=== PATIENT | male | born 1930 | race Caucasian/White ===

== ENCOUNTER → 2016-07-16 | Outpatient (CLI) | payer MEDICARE ==
[2016-07-16 11:06] LABS: Anion Gap 10 mmol/L; Blood Urea Nitrogen 19 mg/dL (9-20); Calcium 9.4 mg/dL (8.4-10.2); Carbon Dioxide 29 mmol/L (22-30); Chloride 102 mmol/L (98-107); Glucose 92 mg/dL (74-99); Non-African American GFR(MDRD) >60 (>60 ml/min/1.73 sqM); Potassium 4.2 mmol/L (3.5-5.1); Sodium 141 mmol/L (137-145)
== END | disposition home or self-care (01) ==
LOC: LABWHC1 09:48
PROVIDERS: ATTEND Internal Medicine Interventional Cardiology
DX: I10 Essential (primary) hypertension (principal)
CPT/HCPCS: 36415; 80048

== ENCOUNTER → 2017-12-01 | Outpatient (CLI) | payer MEDICARE ==
[2017-12-01 10:34] LABS: Basophils % (A) 1 %; Eosinophils # (A) 0.1 k/uL (0-0.7); Eosinophils % (A) 2 %; HGB 13.2 gm/dL (13.0-17.5); Hypochromasia Slight; Lymphocytes # (A) 1.3 k/uL (1.0-4.8); Lymphocytes % (A) 26 %; MCH 26.4 pg (25.0-35.0); Mean Platelet Volume 6.6; Monocytes # (A) 0.4 k/uL (0-1.0); Monocytes % (A) 8 %; Neutrophils # (A) 3.1 k/uL (1.3-7.7); Neutrophils % (A) 62 %; Platelet Count 150 k/uL (150-450)
[2017-12-01 10:46] LABS: Albumin 3.6 g/dL (3.5-5.0); Calcium 8.7 mg/dL (8.4-10.2); Potassium 4.1 mmol/L (3.5-5.1); Total Bilirubin 0.6 mg/dL (0.2-1.3); Total Protein 6.6 g/dL (6.3-8.2)
[2017-12-01 11:02] LABS: T4, Free (Free Thyroxine) 1.17 ng/dL (0.78-2.19)
== END | disposition home or self-care (01) ==
LOC: LABWHC1 10:03
PROVIDERS: ATTEND Internal Medicine
DX: Z00.00 Encounter for general adult medical examination without abnormal findings (principal); E78.5 Hyperlipidemia, unspecified; I10 Essential (primary) hypertension
CPT/HCPCS: 36415; 80053; 80061; 84439; 84443; 85025

== ENCOUNTER 2020-04-28 00:11 | Inpatient (IN) | payer MEDICARE ==
[2020-04-28] MEDS ORDERED: IPRATROPIUM-ALBUTEROL 3 ML NEB INHALATION STA (00:35)
[2020-04-28] MEDS ORDERED: SODIUM CHLORIDE 0.9% 1,000 ML IV STA ×2 (00:35)
[2020-04-28] MEDS ORDERED: LORazepam 2 MG/ML INJ IV STA (00:35)
--- NOTE | 2020-04-28 00:35 | ED ---
SOB HPI - General Chief Complaint: Shortness of Breath Stated Complaint: SPARKLE Time Seen by Provider: 04/28/20 00:19 Source: patient, family, RN notes reviewed, old records reviewed Mode of arrival: ambulatory Limitations: no limitations - History of Present Illness Initial Comments: This is an 81-year-old male to the ER for evaluation patient is severe shortness of breath patient has underlying history of COPD and smoking coming in with increasing shortness of breath mainly started tonight. No chest pain. Patient states he never had significant shortness of breath like this before no sick contacts or travel history denies fever MD Complaint: shortness of breath, cough -: hour(s) Severity: moderate Severity scale (1-10): 6 Consistency: constant Improves With: nothing Worsens With: nothing Known History Of: COPD, congestive heart failure, recurrent pneumonia Context: recent URI, recent illness Associated Symptoms: cough, sputum production Treatments Prior to Arrival: none - Related Data Allergies Allergy/AdvReac Type Severity Reaction Status Date / Time No Known Allergies Allergy Verified 04/28/20 00:17 Review of Systems ROS Statement: Those systems with pertinent positive or pertinent negative responses have been documented in the HPI. ROS Other: All systems not noted in ROS Statement are negative. Past Medical History Past Medical History: No Reported History History of Any Multi-Drug Resistant Organisms: None Reported Past Surgical History: No Surgical Hx Reported Past Psychological History: No Psychological Hx Reported Smoking Status: Former smoker Past Alcohol Use History: Occasional General Exam Limitations: no limitations General appearance: alert, in no apparent distress, anxious, cachectic Head exam: Present: atraumatic, normocephalic, normal inspection Eye exam: Present: normal appearance, PERRL, EOMI. Absent: scleral icterus, conjunctival injection, periorbital swelling ENT exam: Present: normal exam, mucous membranes moist Neck exam: Present: normal inspection. Absent: tenderness, meningismus, lymphadenopathy Respiratory exam: Present: respiratory distress, wheezes, accessory muscle use, decreased breath sounds, prolonged expiratory. Absent: rales, rhonchi, stridor Cardiovascular Exam: Present: regular rate, normal rhythm, normal heart sounds. Absent: systolic murmur, diastolic murmur, rubs, gallop, clicks GI/Abdominal exam: Present: soft, normal bowel sounds. Absent: distended, tenderness, guarding, rebound, rigid Extremities exam: Present: normal inspection, full ROM, normal capillary refill. Absent: tenderness, pedal edema, joint swelling, calf tenderness Back exam: Present: normal inspection Neurological exam: Present: alert, oriented X3, CN II-XII intact Psychiatric exam: Present: normal affect, normal mood Skin exam: Present: warm, dry, intact, normal color. Absent: rash Course Vital Signs 04/28/20 04/28/20 04/28/20 00:13 00:35 00:51 Temperature 98.3 F Pulse Rate 94 88 Respiratory 26 H 24 Rate Blood Pressure 133/81 O2 Sat by Pulse 94 L Oximetry 04/28/20 01:03 Temperature Pulse Rate 88 Respiratory Rate Blood Pressure O2 Sat by Pulse Oximetry - Reevaluation(s) Reevaluation #1: 04/28/20 02:19 Medical record is reviewed Reevaluation #2: 04/28/20 02:19 improvement in symptoms - Consultations Consultation #1: Spoke with EM to agrees to admit the patient Medical Decision Making - Medical Decision Making 89 male with severe shortness of breath patient coming with persistent shortness of breath cough, likely underlying history of COPD patient will be admitted for breathing treatments and supportive care, rule out coronavirus - Lab Data Result diagrams: 04/28/20 01:00 04/28/20 01:00 Lab Results 04/28/20 04/28/20 04/28/20 Range/Units 01:00 01:00 01:00 WBC 9.4 (3.8-10.6) k/uL RBC 4.56 (4.30-5.90) m/uL Hgb 12.6 L (13.0-17.5) gm/dL Hct 39.4 (39.0-53.0) % MCV 86.5 (80.0-100.0) fL MCH 27.7 (25.0-35.0) pg MCHC 32.0 (31.0-37.0) g/dL RDW 13.0 (11.5-15.5) % Plt Count 233 (150-450) k/uL MPV 7.7 Neutrophils % 72 % Lymphocytes % 13 % Monocytes % 7 % Eosinophils % 7 % Basophils % 0 % Neutrophils # 6.8 (1.3-7.7) k/uL Lymphocytes # 1.2 (1.0-4.8) k/uL Monocytes # 0.6 (0-1.0) k/uL Eosinophils # 0.7 (0-0.7) k/uL Basophils # 0.0 (0-0.2) k/uL PT 9.7 (9.0-12.0) sec INR 0.9 (<1.2) APTT 22.8 (22.0-30.0) sec Sodium 136 L (137-145) mmol/L Potassium 4.2 (3.5-5.1) mmol/L Chloride 102 (98-107) mmol/L Carbon Dioxide 24 (22-30) mmol/L Anion Gap 10 mmol/L BUN 23 H (9-20) mg/dL Creatinine 1.23 (0.66-1.25) mg/dL Est GFR (CKD-EPI)AfAm 61 (>60 ml/min/1.73 sqM) Est GFR (CKD-EPI)NonAf 52 (>60 ml/min/1.73 sqM) Glucose 126 H (74-99) mg/dL Plasma Lactic Acid Andres (0.7-2.0) mmol/L Calcium 8.4 (8.4-10.2) mg/dL Magnesium 2.2 (1.6-2.3) mg/dL Total Bilirubin 0.5 (0.2-1.3) mg/dL AST 23 (17-59) U/L ALT 21 (4-49) U/L Alkaline Phosphatase 64 (38-126) U/L Lactate Dehydrogenase (313-618) U/L Creatine Kinase 53 L (55-170) U/L Troponin I (0.000-0.034) ng/mL C-Reactive Protein (<10.0) mg/L NT-Pro-B Natriuret Pep pg/mL Total Protein 6.5 (6.3-8.2) g/dL Albumin 3.4 L (3.5-5.0) g/dL 04/28/20 04/28/20 04/28/20 Range/Units 01:00 01:00 01:00 WBC (3.8-10.6) k/uL RBC (4.30-5.90) m/uL Hgb (13.0-17.5) gm/dL Hct (39.0-53.0) % MCV (80.0-100.0) fL MCH (25.0-35.0) pg MCHC (31.0-37.0) g/dL RDW (11.5-15.5) % Plt Count (150-450) k/uL MPV Neutrophils % % Lymphocytes % % Monocytes % % Eosinophils % % Basophils % % Neutrophils # (1.3-7.7) k/uL Lymphocytes # (1.0-4.8) k/uL Monocytes # (0-1.0) k/uL Eosinophils # (0-0.7) k/uL Basophils # (0-0.2) k/uL PT (9.0-12.0) sec INR (<1.2) APTT (22.0-30.0) sec Sodium (137-145) mmol/L Potassium (3.5-5.1) mmol/L Chloride (98-107) mmol/L Carbon Dioxide (22-30) mmol/L Anion Gap mmol/L BUN (9-20) mg/dL Creatinine (0.66-1.25) mg/dL Est GFR (CKD-EPI)AfAm (>60 ml/min/1.73 sqM) Est GFR (CKD-EPI)NonAf (>60 ml/min/1.73 sqM) Glucose (74-99) mg/dL Plasma Lactic Acid Andres 1.2 (0.7-2.0) mmol/L Calcium (8.4-10.2) mg/dL Magnesium (1.6-2.3) mg/dL Total Bilirubin (0.2-1.3) mg/dL AST (17-59) U/L ALT (4-49) U/L Alkaline Phosphatase (38-126) U/L Lactate Dehydrogenase (313-618) U/L Creatine Kinase (55-170) U/L Troponin I 0.027 (0.000-0.034) ng/mL C-Reactive Protein (<10.0) mg/L NT-Pro-B Natriuret Pep 526 pg/mL Total Protein (6.3-8.2) g/dL Albumin (3.5-5.0) g/dL 04/28/20 Range/Units 01:00 WBC (3.8-10.6) k/uL RBC (4.30-5.90) m/uL Hgb (13.0-17.5) gm/dL Hct (39.0-53.0) % MCV (80.0-100.0) fL MCH (25.0-35.0) pg MCHC (31.0-37.0) g/dL RDW (11.5-15.5) % Plt Count (150-450) k/uL MPV Neutrophils % % Lymphocytes % % Monocytes % % Eosinophils % % Basophils % % Neutrophils # (1.3-7.7) k/uL Lymphocytes # (1.0-4.8) k/uL Monocytes # (0-1.0) k/uL Eosinophils # (0-0.7) k/uL Basophils # (0-0.2) k/uL PT (9.0-12.0) sec INR (<1.2) APTT (22.0-30.0) sec Sodium (137-145) mmol/L Potassium (3.5-5.1) mmol/L Chloride (98-107) mmol/L Carbon Dioxide (22-30) mmol/L Anion Gap mmol/L BUN (9-20) mg/dL Creatinine (0.66-1.25) mg/dL Est GFR (CKD-EPI)AfAm (>60 ml/min/1.73 sqM) Est GFR (CKD-EPI)NonAf (>60 ml/min/1.73 sqM) Glucose (74-99) mg/dL Plasma Lactic Acid Andres (0.7-2.0) mmol/L Calcium (8.4-10.2) mg/dL Magnesium (1.6-2.3) mg/dL Total Bilirubin (0.2-1.3) mg/dL AST (17-59) U/L ALT (4-49) U/L Alkaline Phosphatase (38-126) U/L Lactate Dehydrogenase 442 (313-618) U/L Creatine Kinase (55-170) U/L Troponin I (0.000-0.034) ng/mL C-Reactive Protein 83.9 H (<10.0) mg/L NT-Pro-B Natriuret Pep pg/mL Total Protein (6.3-8.2) g/dL Albumin (3.5-5.0) g/dL - EKG Data -: EKG Interpreted by Me (EKG is sinus rhythm 89 IN 130 QRS 82 QTC 438) - Radiology Data Radiology results: report reviewed (Chest x-ray of pulmonary nodule bilateral basilar infiltrate), image reviewed Disposition Clinical Impression: Acute pulmonary edema, Acute exacerbation of chronic obstructive pulmonary disease, Community acquired pneumonia, Hypoxia Disposition: ADMITTED IP TO THIS HOSP Condition: Fair Is patient prescribed a controlled substance at d/c from ED?: No Referrals: Reshma Wallis MD [Primary Care Provider] - 1-2 days
[2020-04-28 01:22] LABS: Basophils % (A) 0 %; Eosinophils # (A) 0.7 k/uL (0-0.7); Eosinophils % (A) 7 %; HCT 39.4 % (39.0-53.0); HGB 12.6 gm/dL (13.0-17.5); Lymphocytes # (A) 1.2 k/uL (1.0-4.8); Lymphocytes % (A) 13 %; MCH 27.7 pg (25.0-35.0); MCV 86.5 fL (80.0-100.0); Mean Platelet Volume 7.7; Monocytes # (A) 0.6 k/uL (0-1.0); Monocytes % (A) 7 %; Neutrophils # (A) 6.8 k/uL (1.3-7.7); Neutrophils % (A) 72 %; Platelet Count 233 k/uL (150-450); RBC 4.56 m/uL (4.30-5.90); WBC 9.4 k/uL (3.8-10.6)
--- NOTE | 2020-04-28 01:27 | XR ---
EXAM: XR Chest, 2 Views CLINICAL HISTORY: difficulty breathing TECHNIQUE: Frontal and lateral views of the chest. COMPARISON: No relevant prior studies available. FINDINGS: Lungs: Small amount of bibasilar airspace opacities. 6 mm pulmonary nodule is suspected in the lateral aspect of left mid lung zone. Pleural space: minimal bilateral pleural effusion/thickening. No pneumothorax. Mediastinum: Calcified aorta. Bones/joints:. No acute findings. IMPRESSION: 1. Small amount of bibasilar airspace opacities. 2. minimal bilateral pleural effusion/thickening. 3. 6 mm pulmonary nodule is suspected in the lateral aspect of left mid lung zone. Palpation CT may help to further evaluate if clinically indicated.
[2020-04-28 01:30] LABS: Albumin 3.4 g/dL (3.5-5.0); Calcium 8.4 mg/dL (8.4-10.2); Magnesium 2.2 mg/dL (1.6-2.3); Potassium 4.2 mmol/L (3.5-5.1); Total Bilirubin 0.5 mg/dL (0.2-1.3); Total Protein 6.5 g/dL (6.3-8.2)
[2020-04-28 01:32] LABS: INR 0.9 (<1.2); Partial Thromboplastin Time 22.8 sec (22.0-30.0); Prothrombin Time 9.7 sec (9.0-12.0)
[2020-04-28 02:07] LABS: C Reactive Protein 83.9 mg/L (<10.0)
[2020-04-28] MEDS ORDERED: AZITHROMYCIN 500 MG in SODIUM CHLORIDE 0.9% 250 ML IVPB STA (02:17)
[2020-04-28] MEDS: SODIUM CHLORIDE 0.9% 1,000 ML IV SCH ×2 (02:38→12:38)
--- NOTE | 2020-04-28 02:50 | CT ---
EXAM: CT Angiography Chest With Intravenous Contrast CLINICAL HISTORY: ITS.REASON CT Reason: PE TECHNIQUE: Axial computed tomographic angiography images of the chest with intravenous contrast. CTDI is 22.77 mGy and DLP is 271.60 mGy-cm. This CT exam was performed using one or more of the following dose reduction techniques: automated exposure control, adjustment of the mA and/or kV according to patient size, and/or use of iterative reconstruction technique. MIP reconstructed images were created and reviewed. COMPARISON: 04/28/2020 FINDINGS: Pulmonary arteries: No filling defects. Aorta: No thoracic aortic aneurysm. Lungs: No mass. No consolidation. Opacification in the right main bronchus. Pleural space: No pneumothorax. Mild bilateral loculated pleural effusions. Heart: No cardiomegaly. Trace pericardial effusion. Bones/joints: Views of thoracic vertebral bodies. Age indeterminate mild anterior wedging of T3, T5, T6 T12, and L1. Soft tissues: Multiple subcentimeter nodules in the thyroid glands. Atrophic left kidney with severe hydronephrosis. Multiple hepatic cysts. Mildly nodular liver. Mild hiatal hernia. Lymph nodes: No enlarged lymph nodes. IMPRESSION: 1. No pulmonary embolism. 2. Trace pericardial effusion. Mild bilateral loculated pleural effusions, worse on the left. 3. Secretion in the right main bronchus, likely aspiration 4. Evidence of ankylosing spondylitis. Multiple wedge deformities of the thoracolumbar spine, indeterminate age. 5. Atrophic left kidney with severe hydronephrosis. 6. Mildly nodular liver. 7. Mild hiatal hernia. 8. Multiple subcentimeter nodules in the thyroid glands
[2020-04-28 08:10] VITALS: BP 126/71; RESP 16; TEMP 98.3
[2020-04-28] MEDS: IPRATROPIUM-ALBUTEROL 3 ML NEB INHALATION SCH ×2 (08:18→11:16)
[2020-04-28] MEDS ORDERED: ENOXAPARIN 40 MG/0.4 ML SYRINGE SQ SCH (09:00)
[2020-04-28] MEDS ORDERED: ASPIRIN 81 MG PO SCH (09:00)
[2020-04-28] MEDS ORDERED: METOPROLOL TARTRATE 25 MG TAB PO SCH (09:00)
[2020-04-28] MEDS ORDERED: DOXAZOSIN 4 MG TAB PO SCH (09:00)
[2020-04-28] MEDS ORDERED: FUROSEMIDE 10 MG/ML 2 ML VIAL IV ONE (10:11)
--- NOTE | 2020-04-28 10:56 | P.HPIM ---
History of Present Illness 89-year-old pleasant male with known history of COPD came in with complaints of shortness of breath that patient had a CT of the chest which showed mucus in the right mainstem bronchus no evidence of PE pulmonary embolism patient is saturating well with dyspnea and oxygen if patient is a able to do well without oxygen ablate well with that and patient will be discharged today. Patient received systemic steroids probably will not require those upon discharge. Patient is clinically doing well. Patient denied any fever chills no evidence of pneumonia on x-ray patient will be discharged on 6 inhale steroids,. Opium and patient will continue albuterol an as-needed basis as well as azithromycin Review of Systems REVIEW OF SYSTEMS: CONSTITUTIONAL: No fever, no malaise, no fatigue. HEENT: No recent visual problems or hearing problems. Denied any sore throat. CARDIOVASCULAR: No chest pain, orthopnea, PND, no palpitations, no syncope. PULMONARY:no hemoptysis. GASTROINTESTINAL: No diarrhea, no nausea, no vomiting, no abdominal pain. NEUROLOGICAL: No headaches, no weakness, no numbness. HEMATOLOGICAL: Denies any bleeding or petechiae. GENITOURINARY: Denies any burning micturition, frequency, or urgency. MUSCULOSKELETAL/RHEUMATOLOGICAL: Denies any joint pain, swelling, or any muscle pain. ENDOCRINE: Denies any polyuria or polydipsia. The rest of the 14-point review of systems is negative. Past Medical History Past Medical History: No Reported History History of Any Multi-Drug Resistant Organisms: None Reported Past Surgical History: No Surgical Hx Reported Past Anesthesia/Blood Transfusion Reactions: No Reported Reaction Past Psychological History: No Psychological Hx Reported Smoking Status: Former smoker Past Alcohol Use History: Occasional Past Drug Use History: None Reported Medications and Allergies Home Medications Medication Instructions Recorded Confirmed Type Albuterol Inhaler [Ventolin Hfa 2 puff INHALATION RT-QID PRN 04/28/20 04/28/20 History Inhaler] Aspirin EC [Ecotrin Low Dose] 81 mg PO DAILY 04/28/20 04/28/20 History Azithromycin [Zithromax Tri-Dev (3 500 mg PO DAILY 3 Days #3 tab 04/28/20 Rx tabs)] Budesonide-Formot 160-4.5 Mcg 2 puff INHALATION BID #1 inhaler 04/28/20 Rx [Symbicort 160-4.5 Mcg Inhaler] Doxazosin [Cardura] 4 mg PO DAILY 04/28/20 04/28/20 History Metoprolol Tartrate [Lopressor] 25 mg PO BID 04/28/20 04/28/20 History Simvastatin [Zocor] 20 mg PO HS 04/28/20 04/28/20 History Tiotropium Pre[place] [Spiriva] 1 cap INHALATION DAILY #1 device 04/28/20 Rx Allergies Allergy/AdvReac Type Severity Reaction Status Date / Time No Known Allergies Allergy Verified 04/28/20 08:03 Physical Exam Vitals: Vital Signs Temp Pulse Pulse Resp BP BP Pulse Ox 04/28/20 08:32 89 04/28/20 08:18 88 98 04/28/20 08:00 98.3 F 93 16 126/71 95 04/28/20 04:00 98.0 F 92 18 125/56 98 04/28/20 03:12 96 24 131/79 97 04/28/20 02:40 24 04/28/20 02:00 95 24 140/77 96 04/28/20 01:30 92 24 136/78 96 04/28/20 01:03 88 04/28/20 00:51 88 04/28/20 00:35 24 04/28/20 00:13 98.3 F 94 26 H 133/81 94 L Intake and Output 04/27/20 04/28/20 04/28/20 22:59 06:59 14:59 Other: Voiding Method Toilet # Voids 1 Weight 66.361 kg PHYSICAL EXAMINATION: GENERAL: The patient is alert and oriented x3, not in any acute distress. Well developed, well nourished. HEENT: Pupils are round and equally reacting to light. EOMI. No scleral icterus. No conjunctival pallor. Normocephalic, atraumatic. No pharyngeal erythema. No thyromegaly. CARDIOVASCULAR: S1 and S2 present. No murmurs, rubs, or gallops. PULMONARY: Mildly decreased air entry into bilateral lung fieldsand wheezing was appreciated ABDOMEN: Soft, nontender, nondistended, normoactive bowel sounds. No palpable organomegaly. MUSCULOSKELETAL: No joint swelling or deformity. EXTREMITIES: No cyanosis, clubbing, or pedal edema. NEUROLOGICAL: Gross neurological examination did not reveal any focal deficits. SKIN: No rashes. Results CBC & Chem 7: 04/28/20 01:00 04/28/20 01:00 Labs: Abnormal Lab Results - Last 24 Hours (Table) 04/28/20 04/28/20 04/28/20 Range/Units 01:00 01:00 01:00 Hgb 12.6 L (13.0-17.5) gm/dL D-Dimer (<0.60) mg/L FEU Sodium 136 L (137-145) mmol/L BUN 23 H (9-20) mg/dL Glucose 126 H (74-99) mg/dL Creatine Kinase 53 L (55-170) U/L C-Reactive Protein 83.9 H (<10.0) mg/L Albumin 3.4 L (3.5-5.0) g/dL 04/28/20 Range/Units 01:00 Hgb (13.0-17.5) gm/dL D-Dimer 3.90 H (<0.60) mg/L FEU Sodium (137-145) mmol/L BUN (9-20) mg/dL Glucose (74-99) mg/dL Creatine Kinase (55-170) U/L C-Reactive Protein (<10.0) mg/L Albumin (3.5-5.0) g/dL Thrombosis Risk Factor Assmnt - Choose All That Apply Each Risk Factor Represents 3 Points: Age 75 years or older Thrombosis Risk Factor Assessment Total Risk Factor Score: 3 Thrombosis Risk Factor Assessment Level: Moderate Risk Assessment and Plan Plan: -COPD exacerbation: Improved patient is clinically doing well if cleared by pulmonology patient will be discharged today patient was discharged on azithromycin Possible bacterial bronchitis with a mucous plug in the right bronchus -Acute renal failure pale ischemia secondary to dehydration, received IV fluids overnight. -Ruled out pulmonary embolism -Benign prostatic hypertrophy -Hyperlipidemia -coronary artery disease
--- NOTE | 2020-04-28 10:57 | P.DS ---
Providers Date of admission: 04/28/20 02:17 Attending physician: Hali Vaughn Consults: 04/28/20 02:17 Consult Physician Routine Consulting Provider: Reshma Wallis Consult Reason/Comments: copd Do you want consulting provider notified?: Yes Primary care physician: Reshma Wallis [facility] Course: Refer to [facility] for further details Patient Condition at Discharge: Fair Plan - Discharge Summary Discharge Rx Participant: No New Discharge Prescriptions: New Tiotropium [place] [Spiriva] 1 cap INHALATION DAILY #1 device Budesonide-Formot 160-4.5 Mcg [Symbicort 160-4.5 Mcg Inhaler] 2 puff INHALATION BID #1 inhaler Azithromycin [Zithromax Tri-Dev (3 tabs)] 500 mg PO DAILY 3 Days #3 tab No Action Simvastatin [Zocor] 20 mg PO HS Metoprolol Tartrate [Lopressor] 25 mg PO BID Aspirin EC [Ecotrin Low Dose] 81 mg PO DAILY Doxazosin [Cardura] 4 mg PO DAILY Albuterol Inhaler [Ventolin Hfa Inhaler] 2 puff INHALATION RT-QID PRN PRN Reason: Shortness Of Breath Discharge Medication List Albuterol Inhaler [Ventolin Hfa Inhaler] 2 puff INHALATION RT-QID PRN 04/28/20 [History] Aspirin EC [Ecotrin Low Dose] 81 mg PO DAILY 04/28/20 [History] Azithromycin [Zithromax Tri-Dev (3 tabs)] 500 mg PO DAILY 3 Days #3 tab 04/28/20 [Rx] Budesonide-Formot 160-4.5 Mcg [Symbicort 160-4.5 Mcg Inhaler] 2 puff INHALATION BID #1 inhaler 04/28/20 [Rx] Doxazosin [Cardura] 4 mg PO DAILY 04/28/20 [History] Metoprolol Tartrate [Lopressor] 25 mg PO BID 04/28/20 [History] Simvastatin [Zocor] 20 mg PO HS 04/28/20 [History] Tiotropium [place] [Spiriva] 1 cap INHALATION DAILY #1 device 04/28/20 [Rx] Follow up Appointment(s)/Referral(s): Reshma Wallis MD [Primary Care Provider] - 3 Days (Office closed at time of discharge please call ThursdayApril 30 to set up a follow up appointment) Discharge Disposition: HOME SELF-CARE
[2020-04-28 11:27] VITALS: PULSE 88
--- NOTE | 2020-04-28 14:40 | P.CNPUL ---
History of Present Illness Consult date: 04/28/20 Requesting physician: Milvia Hernandez Reason for consult: dyspnea, pleural effusion Chief complaint: Shortness of breath, chest discomfort History of present illness: This is a very pleasant 89-year-old gentleman who appears younger than his stated age. He follows with Dr. Wallis as a his primary care provider. He has a history of chronic obstructive pulmonary disease, hypertension, hyper lipidemia. He presented here to the emergency room yesterday with complaints of some chest tightness and shortness of breath that has been progressing over the past month. Chest x-ray revealed small bibasilar airspace opacities in small pleural effusions. CT angiogram ruled out pulmonary embolism. There was some secretion in the right main bronchus suspected aspiration. White count 9.4. Hemoglobin 12.6. D-dimer 3.90. Sodium 136. Potassium 4.2. Creatinine 1.23. Mathew virus not detected. He is seen today in consultation on the regular medical floor. He is currently awake and alert in no acute distress. Resting quite comfortably in bed. Maintaining O2 saturations in the 90s on room air. No fever, chills or night sweats. Does have a nonproductive cough. No chest pain or palpitations. Review of Systems REVIEW OF SYSTEMS: CONSTITUTIONAL: Denies any recent significant weight loss or weight gain. EYES: Denies change in vision. EARS, NOSE, MOUTH, THROAT: Denies headaches, denies sore throat. CARDIOVASCULAR: Denies chest pain, palpitations or syncopal episodes. RESPIRATORY: Positive for shortness of breath, cough, congestion no hemoptysis. GASTROINTESTINAL: Denies change in appetite, denies abdominal pain GENITOURINARY: Denies hematuria, denies infections. MUSKULOSKELETAL: Denies pain, denies swelling. INTEGUMENTARY: Denies rash, denies eczema. NEUROLOGICAL: Denies recent memory loss, no recent seizure activity. PSYCHIATRIC: Denies anxiety, denies depression. HEMATOLOGIC/LYMPHATIC: Denies anemia, denies enlarged lymph nodes. Past Medical History Past Medical History: No Reported History History of Any Multi-Drug Resistant Organisms: None Reported Past Surgical History: No Surgical Hx Reported Past Anesthesia/Blood Transfusion Reactions: No Reported Reaction Past Psychological History: No Psychological Hx Reported Smoking Status: Former smoker Past Alcohol Use History: Occasional Past Drug Use History: None Reported Medications and Allergies Home Medications Medication Instructions Recorded Confirmed Type Albuterol Inhaler [Ventolin Hfa 2 puff INHALATION RT-QID PRN 04/28/20 04/28/20 History Inhaler] Aspirin EC [Ecotrin Low Dose] 81 mg PO DAILY 04/28/20 04/28/20 History Azithromycin [Zithromax Tri-Dev (3 500 mg PO DAILY 3 Days #3 tab 04/28/20 Rx tabs)] Budesonide-Formot 160-4.5 Mcg 2 puff INHALATION BID #1 inhaler 04/28/20 Rx [Symbicort 160-4.5 Mcg Inhaler] Doxazosin [Cardura] 4 mg PO DAILY 04/28/20 04/28/20 History Furosemide [Lasix] 20 mg PO DAILY #30 tab 04/28/20 Rx Metoprolol Tartrate [Lopressor] 25 mg PO BID 04/28/20 04/28/20 History Simvastatin [Zocor] 20 mg PO HS 04/28/20 04/28/20 History Tiotropium Export [Spiriva] 1 cap INHALATION DAILY #1 device 04/28/20 Rx Allergies Allergy/AdvReac Type Severity Reaction Status Date / Time No Known Allergies Allergy Verified 04/28/20 08:03 Physical Exam Vitals: Vital Signs Temp Pulse Pulse Resp BP BP Pulse Ox 04/28/20 12:10 16 96 04/28/20 11:26 88 04/28/20 11:17 87 04/28/20 08:32 89 04/28/20 08:18 88 98 04/28/20 08:00 98.3 F 93 16 126/71 95 04/28/20 04:00 98.0 F 92 18 125/56 98 04/28/20 03:12 96 24 131/79 97 04/28/20 02:40 24 04/28/20 02:00 95 24 140/77 96 04/28/20 01:30 92 24 136/78 96 04/28/20 01:03 88 04/28/20 00:51 88 04/28/20 00:35 24 04/28/20 00:13 98.3 F 94 26 H 133/81 94 L Intake and Output 04/27/20 04/28/20 04/28/20 22:59 06:59 14:59 Other: Voiding Method Toilet Toilet # Voids 1 Weight 66.361 kg GENERAL EXAM: Alert, very pleasant 89-year-old gentleman, on room air, comfortable in no apparent distress. HEAD: Normocephalic. EYES: Normal reaction of pupils, equal size. NOSE: Clear with pink turbinates. THROAT: No erythema or exudates. NECK: No masses, no JVD. CHEST: No chest wall deformity. LUNGS: Equal air entry with faint crackles in the posterior bases. CVS: S1 and S2 normal with no audible murmur, regular rhythm. ABDOMEN: No hepatosplenomegaly, normal bowel sounds, no guarding or rigidity. SPINE: No scoliosis or deformity SKIN: No rashes CENTRAL NERVOUS SYSTEM: No focal deficits, tone is normal in all 4 extremities. EXTREMITIES: There is no peripheral edema. No clubbing, no cyanosis. Peripheral pulses are intact. Results - Laboratory Findings CBC and BMP: 04/28/20 01:00 04/28/20 01:00 PT/INR, D-dimer PT 9.7 sec (9.0-12.0) 04/28/20 01:00 INR 0.9 (<1.2) 04/28/20 01:00 D-Dimer 3.90 mg/L FEU (<0.60) H 04/28/20 01:00 Abnormal lab findings: Abnormal Labs 04/28/20 04/28/20 04/28/20 01:00 01:00 01:00 Hgb 12.6 L D-Dimer Sodium 136 L BUN 23 H Glucose 126 H Creatine Kinase 53 L C-Reactive Protein 83.9 H Albumin 3.4 L 04/28/20 01:00 Hgb D-Dimer 3.90 H Sodium BUN Glucose Creatine Kinase C-Reactive Protein Albumin - Diagnostic Findings Chest x-ray: image reviewed CT scan - chest: image reviewed Assessment and Plan Assessment: 1 Dyspnea secondary to mild fluid volume overload 2 Acute exacerbation of chronic obstructive pulmonary disease 3 Former smoker 4 Hyperlipidemia 5 Hypertension Plan: The patient was seen and evaluated by Dr. Wallis Chest x-ray and labs reviewed Lasix 20 mg IVP 1 Start Lasix 20 mg by mouth daily Continue his home COPD medications Complete course of azithromycin Cleared for discharge Follow up in our office in 1-2 weeks. I, the cosigning physician, performed a history & physical examination of the patient. Lungs sounds with faint crackles in the posterior bases, diminished. Maintaining good O2 saturations in the 90s on room air. I discussed the assessment and plan of care with my nurse practitioner, Beckie Goodson. I attest to the above consultation as dictated by her. Time with Patient: Greater than 30
[2020-04-28] MEDS ORDERED: BUDESONIDE 0.5 MG/2 ML NEBU INHALATION SCH (20:00)
[2020-04-28] MEDS ORDERED: ATORVASTATIN 10 MG TAB PO SCH (21:00)
[2020-04-29] MEDS ORDERED: AZITHROMYCIN 500 MG TAB PO SCH (02:18)
[2020-04-29] MEDS ORDERED: FUROSEMIDE 20 MG TAB PO SCH (09:00)
== END 2020-04-28 13:30 | disposition home or self-care (01) | DRG 191 ==
LOC: EC 00:11 → 4SSUR 02:17
PROVIDERS: ADMIT Hospitalist; ATTEND Hospitalist
DX: J44.1 Chronic obstructive pulmonary disease with (acute) exacerbation (principal); R64 Cachexia; N17.9 Acute kidney failure, unspecified; Z68.1 Body mass index [BMI] 19.9 or less, adult; I11.0 Hypertensive heart disease with heart failure; I50.9 Heart failure, unspecified; Z20.822 Contact with and (suspected) exposure to COVID-19; E86.0 Dehydration; R09.02 Hypoxemia; N40.0 Benign prostatic hyperplasia without lower urinary tract symptoms; E78.5 Hyperlipidemia, unspecified; I25.10 Atherosclerotic heart disease of native coronary artery without angina pectoris; Z87.891 Personal history of nicotine dependence; Z87.01 Personal history of pneumonia (recurrent); Z79.82 Long term (current) use of aspirin; Z79.899 Other long term (current) drug therapy
CPT/HCPCS: 36415; 71046; 71275; 80053; 82550; 83605; 83615; 83735; 83880; 84484; 85025; 85379; 85610; 85730; 86140; 87040; 87635; 93005; 94640; 96361; 96365; 99285

== ENCOUNTER 2020-09-20 01:10 | Inpatient (IN) | payer MEDICARE ==
[2020-09-20] MEDS ORDERED: SODIUM CHLORIDE 0.9% 1,000 ML IV STA (01:14)
--- NOTE | 2020-09-20 01:31 | ED ---
Weakness HPI - General Stated complaint: Weakness Time Seen by Provider: 09/20/20 01:14 Source: RN notes reviewed, old records reviewed Limitations: no limitations - History of Present Illness Initial comments: This is an 89-year-old male who is a poor story presented with weakness well walking patient reevaluated is near syncopal. He had he was ground secondary lightheadedness and dizziness. Patient currently is without headache chest pain shortness of breath or abdominal pain. MD Complaint: generalized weakness, lack of energy, difficulty walking -: hour(s) Location: generalized Severity: moderate Consistency: constant Improves with: none Worsens with: none Context: recent illness, history of similar Associated Symptoms: loss of appetite, nausea/vomiting, shortness of breath - Related Data Home Medications Medication Instructions Recorded Confirmed Albuterol Inhaler [Ventolin Hfa 2 puff INHALATION RT-QID PRN 04/28/20 04/28/20 Inhaler] Aspirin EC [Ecotrin Low Dose] 81 mg PO DAILY 04/28/20 04/28/20 Doxazosin [Cardura] 4 mg PO DAILY 04/28/20 04/28/20 Metoprolol Tartrate [Lopressor] 25 mg PO BID 04/28/20 04/28/20 Simvastatin [Zocor] 20 mg PO HS 04/28/20 04/28/20 Previous Rx's Medication Instructions Recorded Azithromycin [Zithromax Tri-Dev (3 500 mg PO DAILY 3 Days #3 tab 04/28/20 tabs)] Budesonide-Formot 160-4.5 Mcg 2 puff INHALATION BID #1 inhaler 04/28/20 [Symbicort 160-4.5 Mcg Inhaler] Furosemide [Lasix] 20 mg PO DAILY #30 tab 04/28/20 Tiotropium [place] [Spiriva] 1 cap INHALATION DAILY #1 device 04/28/20 Allergies Allergy/AdvReac Type Severity Reaction Status Date / Time No Known Allergies Allergy Verified 04/28/20 08:03 Review of Systems ROS Statement: Those systems with pertinent positive or pertinent negative responses have been documented in the HPI. ROS Other: All systems not noted in ROS Statement are negative. Past Medical History Past Medical History: No Reported History History of Any Multi-Drug Resistant Organisms: None Reported Past Surgical History: No Surgical Hx Reported Past Anesthesia/Blood Transfusion Reactions: No Reported Reaction Past Psychological History: No Psychological Hx Reported Smoking Status: Former smoker Past Alcohol Use History: Occasional Past Drug Use History: None Reported General Exam General appearance: alert, in no apparent distress Head exam: Present: atraumatic, normocephalic, normal inspection Eye exam: Present: normal appearance, PERRL, EOMI. Absent: scleral icterus, conjunctival injection, periorbital swelling ENT exam: Present: normal exam, mucous membranes moist Neck exam: Present: normal inspection. Absent: tenderness, meningismus, lymphadenopathy Respiratory exam: Present: normal lung sounds bilaterally. Absent: respiratory distress, wheezes, rales, rhonchi, stridor Cardiovascular Exam: Present: regular rate, normal rhythm, normal heart sounds. Absent: systolic murmur, diastolic murmur, rubs, gallop, clicks GI/Abdominal exam: Present: soft, normal bowel sounds. Absent: distended, tenderness, guarding, rebound, rigid Extremities exam: Present: normal inspection, full ROM, normal capillary refill. Absent: tenderness, pedal edema, joint swelling, calf tenderness Back exam: Present: normal inspection Neurological exam: Present: alert, oriented X3, CN II-XII intact Psychiatric exam: Present: normal affect, normal mood Skin exam: Present: warm, dry, intact, normal color. Absent: rash Course Vital Signs 09/20/20 09/20/20 01:12 02:27 Temperature 98.8 F Pulse Rate 84 82 Respiratory 16 16 Rate Blood Pressure 127/61 102/57 O2 Sat by Pulse 88 L 96 Oximetry - Reevaluation(s) Reevaluation #1: 09/20/20 03:35 Medical records reviewed Reevaluation #2: 09/20/20 03:35 Patient has no improvement here in the ER feels chilly diaphoretic's Reevaluation #3: 09/20/20 03:35 Patient family informed results and questions are answered EKG Findings - EKG Comments: EKG Findings:: EKG is sinus rhythm 79, [place] 154 QRS 90 QTC 481 Medical Decision Making - Medical Decision Making 89 male DF for evaluation patient will be admitted for IV antibiotics secondary to urinary tract infection, persistent weakness - Lab Data Result diagrams: 09/20/20 01:30 09/20/20 01:30 Lab Results 09/20/20 09/20/20 09/20/20 Range/Units 01:30 01:30 01:30 WBC 8.4 (3.8-10.6) k/uL RBC 3.85 L (4.30-5.90) m/uL Hgb 10.2 L (13.0-17.5) gm/dL Hct 31.0 L (39.0-53.0) % MCV 80.4 (80.0-100.0) fL MCH 26.5 (25.0-35.0) pg MCHC 33.0 (31.0-37.0) g/dL RDW 13.8 (11.5-15.5) % Plt Count 187 (150-450) k/uL MPV 7.3 Neutrophils % 77 % Lymphocytes % 15 % Monocytes % 7 % Eosinophils % 0 % Basophils % 0 % Neutrophils # 6.5 (1.3-7.7) k/uL Lymphocytes # 1.2 (1.0-4.8) k/uL Monocytes # 0.6 (0-1.0) k/uL Eosinophils # 0.0 (0-0.7) k/uL Basophils # 0.0 (0-0.2) k/uL PT 11.1 (9.0-12.0) sec INR 1.0 (<1.2) APTT 24.2 (22.0-30.0) sec Sodium 133 L (137-145) mmol/L Potassium 2.8 L (3.5-5.1) mmol/L Chloride 101 (98-107) mmol/L Carbon Dioxide 25 (22-30) mmol/L Anion Gap 7 mmol/L BUN 32 H (9-20) mg/dL Creatinine 1.48 H (0.66-1.25) mg/dL Est GFR (CKD-EPI)AfAm 48 (>60 ml/min/1.73 sqM) Est GFR (CKD-EPI)NonAf 41 (>60 ml/min/1.73 sqM) Glucose 171 H (74-99) mg/dL Plasma Lactic Acid Andres (0.7-2.0) mmol/L Calcium 7.6 L (8.4-10.2) mg/dL Phosphorus 3.1 (2.5-4.5) mg/dL Magnesium 1.8 (1.6-2.3) mg/dL Total Bilirubin 0.6 (0.2-1.3) mg/dL AST 21 (17-59) U/L ALT 10 (4-49) U/L Alkaline Phosphatase 44 (38-126) U/L Creatine Kinase 39 L (55-170) U/L Troponin I (0.000-0.034) ng/mL NT-Pro-B Natriuret Pep pg/mL Total Protein 5.6 L (6.3-8.2) g/dL Albumin 2.7 L (3.5-5.0) g/dL TSH 1.430 (0.465-4.680) mIU/L Urine Color Urine Appearance (Clear) Urine pH (5.0-8.0) Ur Specific [place] (1.001-1.035) Urine Protein (Negative) Urine Glucose (UA) (Negative) Urine Ketones (Negative) Urine Blood (Negative) Urine Nitrite (Negative) Urine Bilirubin (Negative) Urine Urobilinogen (<2.0) mg/dL Ur Leukocyte Esterase (Negative) Urine RBC (0-5) /hpf Urine WBC (0-5) /hpf Urine WBC Clumps (None) /hpf 09/20/20 09/20/20 09/20/20 Range/Units 01:30 01:30 01:30 WBC (3.8-10.6) k/uL RBC (4.30-5.90) m/uL Hgb (13.0-17.5) gm/dL Hct (39.0-53.0) % MCV (80.0-100.0) fL MCH (25.0-35.0) pg MCHC (31.0-37.0) g/dL RDW (11.5-15.5) % Plt Count (150-450) k/uL MPV Neutrophils % % Lymphocytes % % Monocytes % % Eosinophils % % Basophils % % Neutrophils # (1.3-7.7) k/uL Lymphocytes # (1.0-4.8) k/uL Monocytes # (0-1.0) k/uL Eosinophils # (0-0.7) k/uL Basophils # (0-0.2) k/uL PT (9.0-12.0) sec INR (<1.2) APTT (22.0-30.0) sec Sodium (137-145) mmol/L Potassium (3.5-5.1) mmol/L Chloride (98-107) mmol/L Carbon Dioxide (22-30) mmol/L Anion Gap mmol/L BUN (9-20) mg/dL Creatinine (0.66-1.25) mg/dL Est GFR (CKD-EPI)AfAm (>60 ml/min/1.73 sqM) Est GFR (CKD-EPI)NonAf (>60 ml/min/1.73 sqM) Glucose (74-99) mg/dL Plasma Lactic Acid Andres 1.6 (0.7-2.0) mmol/L Calcium (8.4-10.2) mg/dL Phosphorus (2.5-4.5) mg/dL Magnesium (1.6-2.3) mg/dL Total Bilirubin (0.2-1.3) mg/dL AST (17-59) U/L ALT (4-49) U/L Alkaline Phosphatase (38-126) U/L Creatine Kinase (55-170) U/L Troponin I 0.070 H* (0.000-0.034) ng/mL NT-Pro-B Natriuret Pep 533 pg/mL Total Protein (6.3-8.2) g/dL Albumin (3.5-5.0) g/dL TSH (0.465-4.680) mIU/L Urine Color Urine Appearance (Clear) Urine pH (5.0-8.0) Ur Specific [place] (1.001-1.035) Urine Protein (Negative) Urine Glucose (UA) (Negative) Urine Ketones (Negative) Urine Blood (Negative) Urine Nitrite (Negative) Urine Bilirubin (Negative) Urine Urobilinogen (<2.0) mg/dL Ur Leukocyte Esterase (Negative) Urine RBC (0-5) /hpf Urine WBC (0-5) /hpf Urine WBC Clumps (None) /hpf 09/20/20 Range/Units 02:11 WBC (3.8-10.6) k/uL RBC (4.30-5.90) m/uL Hgb (13.0-17.5) gm/dL Hct (39.0-53.0) % MCV (80.0-100.0) fL MCH (25.0-35.0) pg MCHC (31.0-37.0) g/dL RDW (11.5-15.5) % Plt Count (150-450) k/uL MPV Neutrophils % % Lymphocytes % % Monocytes % % Eosinophils % % Basophils % % Neutrophils # (1.3-7.7) k/uL Lymphocytes # (1.0-4.8) k/uL Monocytes # (0-1.0) k/uL Eosinophils # (0-0.7) k/uL Basophils # (0-0.2) k/uL PT (9.0-12.0) sec INR (<1.2) APTT (22.0-30.0) sec Sodium (137-145) mmol/L Potassium (3.5-5.1) mmol/L Chloride (98-107) mmol/L Carbon Dioxide (22-30) mmol/L Anion Gap mmol/L BUN (9-20) mg/dL Creatinine (0.66-1.25) mg/dL Est GFR (CKD-EPI)AfAm (>60 ml/min/1.73 sqM) Est GFR (CKD-EPI)NonAf (>60 ml/min/1.73 sqM) Glucose (74-99) mg/dL Plasma Lactic Acid Andres (0.7-2.0) mmol/L Calcium (8.4-10.2) mg/dL Phosphorus (2.5-4.5) mg/dL Magnesium (1.6-2.3) mg/dL Total Bilirubin (0.2-1.3) mg/dL AST (17-59) U/L ALT (4-49) U/L Alkaline Phosphatase (38-126) U/L Creatine Kinase (55-170) U/L Troponin I (0.000-0.034) ng/mL NT-Pro-B Natriuret Pep pg/mL Total Protein (6.3-8.2) g/dL Albumin (3.5-5.0) g/dL TSH (0.465-4.680) mIU/L Urine Color Yellow Urine Appearance Cloudy (Clear) Urine pH 6.0 (5.0-8.0) Ur Specific [place] 1.015 (1.001-1.035) Urine Protein 2+ H (Negative) Urine Glucose (UA) Negative (Negative) Urine Ketones Negative (Negative) Urine Blood Large H (Negative) Urine Nitrite Negative (Negative) Urine Bilirubin Negative (Negative) Urine Urobilinogen <2.0 (<2.0) mg/dL Ur Leukocyte Esterase Large H (Negative) Urine RBC >182 H (0-5) /hpf Urine WBC >182 H (0-5) /hpf Urine WBC Clumps Many H (None) /hpf - Radiology Data Radiology results: report reviewed (Chest x-rays negative for acute disease), image reviewed Disposition Clinical Impression: Dehydration, Dizziness, UTI (urinary tract infection), MINI (acute kidney injury) Disposition: ADMITTED IP TO THIS HOSP Is patient prescribed a controlled substance at d/c from ED?: No Referrals: None,Stated [Primary Care Provider] - 1-2 days
[2020-09-20 02:00] LABS: Basophils % (A) 0 %; Eosinophils % (A) 0 %; HGB 10.2 gm/dL (13.0-17.5); Lymphocytes # (A) 1.2 k/uL (1.0-4.8); Lymphocytes % (A) 15 %; MCH 26.5 pg (25.0-35.0); MCV 80.4 fL (80.0-100.0); Mean Platelet Volume 7.3; Monocytes # (A) 0.6 k/uL (0-1.0); Monocytes % (A) 7 %; Neutrophils # (A) 6.5 k/uL (1.3-7.7); Neutrophils % (A) 77 %; Platelet Count 187 k/uL (150-450); RBC 3.85 m/uL (4.30-5.90); RDW 13.8 % (11.5-15.5); WBC 8.4 k/uL (3.8-10.6)
--- NOTE | 2020-09-20 02:01 | XR ---
EXAMINATION TYPE: XR chest 2V DATE OF EXAM: 09/20/2020 COMPARISON: 07/10/2020 HISTORY: Pleural effusion TECHNIQUE: 2 views FINDINGS: There is no heart failure. There is slight blunting right costophrenic angle. There are no hilar masses. Heart is borderline enlarged. The bony thorax is intact. IMPRESSION: Small right pleural effusion is improved compared to last exam. No heart failure.
[2020-09-20 02:07] LABS: Partial Thromboplastin Time 24.2 sec (22.0-30.0); Prothrombin Time 11.1 sec (9.0-12.0)
[2020-09-20 02:19] LABS: Albumin 2.7 g/dL (3.5-5.0); Calcium 7.6 mg/dL (8.4-10.2); Magnesium 1.8 mg/dL (1.6-2.3); Phosphorus 3.1 mg/dL (2.5-4.5); Potassium 2.8 mmol/L (3.5-5.1); Total Bilirubin 0.6 mg/dL (0.2-1.3); Total Protein 5.6 g/dL (6.3-8.2)
[2020-09-20 02:29] LABS: Appearance,Urine Cloudy (Clear); Bilirubin,Urine Negative (Negative); Blood,Urine Large (Negative); Color,Urine Yellow; Glucose,Urine (UA) Negative (Negative); Ketones,Urine Negative (Negative); Leukocyte Esterase,Urine Large (Negative); Nitrite,Urine Negative (Negative); Protein,Urine 2+ (Negative); RBC,Urine >182 /hpf (0-5); Specific Gravity,Urine 1.015 (1.001-1.035); Urobilinogen,Urine <2.0 mg/dL (<2.0); WBC,Urine >182 /hpf (0-5)
[2020-09-20] MEDS ORDERED: NALOXONE 0.4 MG/ML 1 ML VIAL IV PRN (05:43)
[2020-09-20] MEDS ORDERED: ONDANSETRON 4 MG/2 ML VIAL IVP PRN (05:43)
[2020-09-20] MEDS ORDERED: MORPHINE SULFATE 4 MG/ML SYRINGE IV PRN (05:43)
[2020-09-20] MEDS ORDERED: POTASSIUM BICARBONATE/CIT AC 20 MEQ TABLET.EFF PO ONE (06:00)
[2020-09-20] MEDS: SODIUM CHLORIDE 0.9% 1,000 ML IV SCH ×3 (06:05→22:43)
[2020-09-20] MEDS: POTASSIUM CHLORIDE 10 MEQ in WATER FOR INJECTION 1 100ML.BAG IVPB SCH ×4 (06:07→11:35)
[2020-09-20] MEDS: PANTOPRAZOLE 40 MG/10 ML VIAL IV SCH (07:11)
[2020-09-20] MEDS ORDERED: ALBUTEROL NEBULIZED 2.5 MG/3 ML INHALATION PRN (09:46)
--- NOTE | 2020-09-20 10:20 | P.HPIM ---
History of Present Illness Patient is admitted for near syncope lightheadedness. Patient is found to be severely dehydrated with the low sodium of 133 potassium 2.8 creatinine of 1.48 baseline is around 0.9. Patient was admitted with similar symptoms in the past was hydrated at the time. Patient is also on Lasix at home. Patient does have dementia presently alert oriented 2. Serum sodium and serum plasma consistent with poor by mouth intake. Patient denied any chest pain does have mildly elevated troponin of 0.70. Patient's EKG showed sinus rhythm with premature atrial complexes. There is no echo cardiac exam available as per the previous recommendation patient doesn't have any congestive heart failure either. Patient does have dry mucous memory is consistent with dehydration. REVIEW OF SYSTEMS: CONSTITUTIONAL: No fever, no malaise, no fatigue. HEENT: No recent visual problems or hearing problems. Denied any sore throat. CARDIOVASCULAR: No chest pain, orthopnea, PND, no palpitations, no syncope. PULMONARY: No shortness of breath, no cough, no hemoptysis. GASTROINTESTINAL: No diarrhea, no nausea, no vomiting, no abdominal pain. NEUROLOGICAL: No headaches, no weakness, no numbness. HEMATOLOGICAL: Denies any bleeding or petechiae. GENITOURINARY: Denies any burning micturition, frequency, or urgency. MUSCULOSKELETAL/RHEUMATOLOGICAL: Denies any joint pain, swelling, or any muscle pain. ENDOCRINE: Denies any polyuria or polydipsia. The rest of the 14-point review of systems is negative. PHYSICAL EXAMINATION: GENERAL: The patient is alert and oriented x2, not in any acute distress. Thin built elderly male HEENT: Pupils are round and equally reacting to light. EOMI. No scleral icterus. No conjunctival pallor. Normocephalic, atraumatic. No pharyngeal erythema. No thyromegaly. CARDIOVASCULAR: S1 and S2 present. No murmurs, rubs, or gallops. PULMONARY: Chest is clear to auscultation, no wheezing or crackles. ABDOMEN: Soft, nontender, nondistended, normoactive bowel sounds. No palpable organomegaly. MUSCULOSKELETAL: No joint swelling or deformity. EXTREMITIES: No cyanosis, clubbing, or pedal edema. NEUROLOGICAL: Gross neurological examination did not reveal any focal deficits. SKIN: No rashes. Assessment and plan -Near syncopal: Seconded to severe dehydration with acute renal failure and hy ponatremia, patient will be started and continued on IV fluids will recheck the basic metabolic profile tomorrow physical therapy and occupational therapy evaluation. Patient probably will need speech therapy as well to do mini cognitive testing for his dementia. -Hypovolemic hyponatremia: IV fluids as mentioned above -Acute renal failure related azotemia secondary to poor by mouth intake and Las ix Lasix will be discontinued and patient will continue on IV fluids -Hypokalemia: Potassium will be replaced and it's expected to be low tomorrow as well as patient may be chronically hypokalemic and because the IV fluids patient will have some amount of natriuretic hypokalemia potassium remains low but tomorrow, we probably can add it 20-40 mg of potassium in his IV fluids for now we'll replace total of 120 mEq of potassium. 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 -Generalized deconditioning: Physical therapy occupational therapy evaluation -History of COPD without any acute exacerbation -Benign prostatic hypertrophy -Hyperlipidemia - coronary artery disease -DVT prophylaxis with subcutaneous heparin Past Medical History Past Medical History: No Reported History History of Any Multi-Drug Resistant Organisms: None Reported Past Surgical History: No Surgical Hx Reported Past Anesthesia/Blood Transfusion Reactions: No Reported Reaction Past Psychological History: No Psychological Hx Reported Smoking Status: Former smoker Past Alcohol Use History: Occasional Past Drug Use History: None Reported Medications and Allergies Home Medications Medication Instructions Recorded Confirmed Type Albuterol Inhaler [Ventolin Hfa 2 puff INHALATION RT-QID PRN 04/28/20 09/20/20 History Inhaler] Aspirin EC [Ecotrin Low Dose] 81 mg PO DAILY 04/28/20 09/20/20 History Doxazosin [Cardura] 4 mg PO DAILY 04/28/20 09/20/20 History Furosemide [Lasix] 20 mg PO DAILY #30 tab 04/28/20 09/20/20 Rx Metoprolol Tartrate [Lopressor] 25 mg PO BID 04/28/20 09/20/20 History Simvastatin [Zocor] 20 mg PO HS 04/28/20 09/20/20 History Budesonide-Formot 160-4.5 Mcg 2 puff INHALATION RT-BID 09/20/20 09/20/20 History [Symbicort 160-4.5 Mcg Inhaler] Allergies Allergy/AdvReac Type Severity Reaction Status Date / Time No Known Allergies Allergy Verified 04/28/20 08:03 Physical Exam Vitals: Vital Signs Temp Pulse Pulse Resp BP BP Pulse Ox 09/20/20 08:26 98.2 F 96 16 115/56 98 09/20/20 05:55 99.1 F 84 16 90/55 96 09/20/20 04:00 92 18 159/90 96 09/20/20 03:34 98.6 F 115 H 18 95 09/20/20 02:27 82 16 102/57 96 09/20/20 01:12 98.8 F 84 16 127/61 88 L Intake and Output 09/19/20 09/20/20 09/20/20 22:59 06:59 14:59 Intake Total 100 Balance 100 Intake: Oral 100 Other: Weight 59.874 kg 59.874 kg Results CBC & Chem 7: 09/20/20 01:30 09/20/20 01:30 Labs: Abnormal Lab Results - Last 24 Hours (Table) 09/20/20 09/20/20 09/20/20 Range/Units 01:30 01:30 01:30 RBC 3.85 L (4.30-5.90) m/uL Hgb 10.2 L (13.0-17.5) gm/dL Hct 31.0 L (39.0-53.0) % Sodium 133 L (137-145) mmol/L Potassium 2.8 L (3.5-5.1) mmol/L BUN 32 H (9-20) mg/dL Creatinine 1.48 H (0.66-1.25) mg/dL Glucose 171 H (74-99) mg/dL Calcium 7.6 L (8.4-10.2) mg/dL Creatine Kinase 39 L (55-170) U/L Troponin I 0.070 H* (0.000-0.034) ng/mL Total Protein 5.6 L (6.3-8.2) g/dL Albumin 2.7 L (3.5-5.0) g/dL Urine Protein (Negative) Urine Blood (Negative) Ur Leukocyte Esterase (Negative) Urine RBC (0-5) /hpf Urine WBC (0-5) /hpf Urine WBC Clumps (None) /hpf 09/20/20 Range/Units 02:11 RBC (4.30-5.90) m/uL Hgb (13.0-17.5) gm/dL Hct (39.0-53.0) % Sodium (137-145) mmol/L Potassium (3.5-5.1) mmol/L BUN (9-20) mg/dL Creatinine (0.66-1.25) mg/dL Glucose (74-99) mg/dL Calcium (8.4-10.2) mg/dL Creatine Kinase (55-170) U/L Troponin I (0.000-0.034) ng/mL Total Protein (6.3-8.2) g/dL Albumin (3.5-5.0) g/dL Urine Protein 2+ H (Negative) Urine Blood Large H (Negative) Ur Leukocyte Esterase Large H (Negative) Urine RBC >182 H (0-5) /hpf Urine WBC >182 H (0-5) /hpf Urine WBC Clumps Many H (None) /hpf Microbiology - Last 24 Hours (Table) 09/20/20 02:11 Urine Culture - Preliminary Urine,Voided
[2020-09-20 14:53] VITALS: BMI 17.9
[2020-09-20] MEDS: SYMBICORT 160-4.5 MCG INHALER INHALATION SCH (20:01)
[2020-09-20] MEDS: METOPROLOL TARTRATE 25 MG TAB PO SCH (22:41)
[2020-09-20] MEDS: ATORVASTATIN 10 MG TAB PO SCH (22:41)
[2020-09-21] MEDS: SODIUM CHLORIDE 0.9% 1,000 ML IV SCH ×2 (04:14→21:52)
[2020-09-21] MEDS: SYMBICORT 160-4.5 MCG INHALER INHALATION SCH ×2 (07:23→21:13)
[2020-09-21] MEDS: METOPROLOL TARTRATE 25 MG TAB PO SCH ×2 (08:43→20:38)
[2020-09-21] MEDS: DOXAZOSIN 4 MG TAB PO SCH (08:43)
[2020-09-21] MEDS: PANTOPRAZOLE 40 MG/10 ML VIAL IV SCH (09:05)
[2020-09-21] MEDS: ASPIRIN 81 MG PO SCH (09:05)
[2020-09-21 09:48] LABS: Basophils # (A) 0.02 X 10*3/uL (0.00-0.10); Basophils % (A) 0.2 %; Eosinophils # (A) 0.05 X 10*3/uL (0.04-0.35); Eosinophils % (A) 0.6 %; HCT 28.5 % (39.6-50.0); HGB 8.5 g/dL (13.0-17.0); Lymphocytes # (A) 0.94 X 10*3/uL (0.90-5.00); Lymphocytes % (A) 11.1 %; MCH 25.1 pg (27.0-32.0); MCHC 29.8 g/dL (32.0-37.0); MCV 84.3 fL (80.0-97.0); Mean Platelet Volume 10.8 fL (9.5-12.2); Monocytes # (A) 1.01 X 10*3/uL (0.20-1.00); Monocytes % (A) 11.9 %; Neutrophils % (A) 75.7 %; Platelet Count 189 X 10*3/uL (140-440); RBC 3.38 X 10*6/uL (4.40-5.60); RDW 14.5 % (11.5-14.5); WBC 8.46 X 10*3/uL (4.50-10.00)
[2020-09-21 10:24] LABS: African American GFR (CKD) 47.2 (60.0-200.0); Albumin 2.6 g/dL (3.80-4.90); Albumin/Globulin Ratio 1.24 (1.60-3.17); BUN/Creat Ratio 21.33 Ratio (12.00-20.00); Calcium 7.3 mg/dL (8.7-10.3); Globulin 2.1 g/dL (1.6-3.3); Magnesium 1.7 mg/dL (1.5-2.4); Non-African American GFR(CKD) 40.7 (60.0-200.0); Phosphorus 2.6 mg/dL (2.4-5.1); Total Bilirubin 0.2 mg/dL (0.2-1.2); Total Protein 4.7 g/dL (6.2-8.2)
[2020-09-21] MEDS: ATORVASTATIN 10 MG TAB PO SCH (20:38)
[2020-09-22] MEDS: SODIUM CHLORIDE 0.9% 1,000 ML IV SCH ×2 (07:13→15:16)
[2020-09-22] MEDS: DOXAZOSIN 4 MG TAB PO SCH (07:14)
[2020-09-22] MEDS: METOPROLOL TARTRATE 25 MG TAB PO SCH (07:14)
[2020-09-22] MEDS: ASPIRIN 81 MG PO SCH (07:14)
[2020-09-22] MEDS ORDERED: PANTOPRAZOLE 40 MG TABLET PO SCH (07:30)
[2020-09-22 07:51] VITALS: RESP 18
[2020-09-22] MEDS: SYMBICORT 160-4.5 MCG INHALER INHALATION SCH (09:04)
[2020-09-22 14:44] VITALS: BP 130/64; PULSE 104; TEMP 97.6
== END 2020-09-22 16:56 | disposition home or self-care (01) | DRG 683 ==
LOC: EC 01:10 → 4SSUR 05:44 → OBSVTOIN 09-21 13:42
PROVIDERS: ADMIT Hospitalist; ATTEND Hospitalist
DX: N17.9 Acute kidney failure, unspecified (principal); N39.0 Urinary tract infection, site not specified; E87.1 Hypo-osmolality and hyponatremia; E86.0 Dehydration; Z87.891 Personal history of nicotine dependence; Z79.899 Other long term (current) drug therapy; Z79.82 Long term (current) use of aspirin; Z79.51 Long term (current) use of inhaled steroids; N40.0 Benign prostatic hyperplasia without lower urinary tract symptoms; Z20.822 Contact with and (suspected) exposure to COVID-19; E86.1 Hypovolemia; E78.5 Hyperlipidemia, unspecified; F03.90 Unspecified dementia, unspecified severity, without behavioral disturbance, psychotic disturbance, mood disturbance, and anxiety; E87.6 Hypokalemia; I25.10 Atherosclerotic heart disease of native coronary artery without angina pectoris; J44.9 Chronic obstructive pulmonary disease, unspecified
CPT/HCPCS: 36415; 71046; 80053; 81001; 82550; 83605; 83735; 83880; 84100; 84443; 84484; 85025; 85610; 85730; 87086; 87635; 93005; 94640; 94760; 96361; 96365; 99285

== ENCOUNTER 2021-02-27 15:52 | Inpatient (IN) | payer MEDICARE, OTHER ==
[2021-02-27] MEDS ORDERED: ACETAMINOPHEN TAB 500 MG TAB PO STA (20:12)
--- NOTE | 2021-02-27 20:13 | ED ---
General Adult HPI - General Chief complaint: Weakness Stated complaint: not eating, no energy Time Seen by Provider: 02/27/21 19:48 Source: patient Mode of arrival: ambulatory Limitations: no limitations - History of Present Illness Initial comments: Dictation was produced using tocario dictation software. please excuse any grammatical, word or spelling errors. Chief Complaint: 89-year-old male with no significant past medical history presents to the emergency department for cough, fatigue and runny nose History of Present Illness: Is an 89-year-old male he reports no past medical history. He is accompanied by [id number]. Patient over the last 3-4 days has been having cough, fatigue, poor appetite and low-grade fevers. Also noted to have some rhinorrhea. Patient has any medical problems however chart review shows that patient has history of taking beta blockers, aspirin, cholesterol medications, Lasix. Patient has any chest pain. No abdominal pain. He hasn't eaten in 4 days. The ROS documented in this emergency department record has been reviewed and confirmed by me. Those systems with pertinent positive or negative responses have been documented in the HPI. All other systems are other negative and/or noncontributory. PHYSICAL EXAM: General Impression: Alert and oriented x3, not in acute distress HEENT: Normocephalic atraumatic, extra-ocular movements intact, pupils equal and reactive to light bilaterally, mucous membranes moist. Cardiovascular: Heart regular rate and rhythm Chest: Able to complete full sentences, no retractions, no tachypnea Abdomen: abdomen soft, non-tender, non-distended, no organomegaly Musculoskeletal: Pulses present and equal in all extremities, no peripheral edema Motor: no focal deficits noted Neurological: CN II-XII grossly intact, no focal motor or sensory deficits noted Skin: Intact with no visualized rashes Psych: Normal affect and mood ED course: 89-year-old male presents emergency department for URI symptoms 4 days. Ends upon arrival shows temperature of 90.9, worse vital signs within acceptable limits. EKG shows A. fib. Patient does not have a history of A. fib. Patient started on heparin. His rate is acceptable. Laboratory evaluation obtained. CBC Julio. Metabolic panel shows some 131. P1 of 66 with a creatinine of 2.39. Patient does not have a history of kidney issues. Negative for coronal virus, influenza and RSV. Chest x-ray shows infiltrate to the right lower lobe. Physical presentation concerning for community acquired pneumonia. Is also has acute kidney injury and new-onset A. fib. EKG interpretation: Ventricular rate 7, A. fib, QRS 74, QTC 429. No QTC prolongation, no ST or T-wave changes noted. - Related Data Home Medications Medication Instructions Recorded Confirmed Albuterol Inhaler [Ventolin Hfa 2 puff INHALATION RT-QID PRN 04/28/20 09/20/20 Inhaler] Aspirin EC [Ecotrin Low Dose] 81 mg PO DAILY 04/28/20 09/20/20 Doxazosin [Cardura] 4 mg PO DAILY 04/28/20 09/20/20 Metoprolol Tartrate [Lopressor] 25 mg PO BID 04/28/20 09/20/20 Simvastatin [Zocor] 20 mg PO HS 04/28/20 09/20/20 Budesonide-Formot 160-4.5 Mcg 2 puff INHALATION RT-BID 09/20/20 09/20/20 [Symbicort 160-4.5 Mcg Inhaler] Previous Rx's Medication Instructions Recorded Furosemide [Lasix] 20 mg PO DAILY #30 tab 04/28/20 Cephalexin [Keflex] 500 mg PO Q8HR 3 Days #3 cap 09/22/20 Allergies Allergy/AdvReac Type Severity Reaction Status Date / Time No Known Allergies Allergy Verified 02/27/21 16:50 Review of Systems ROS Statement: Those systems with pertinent positive or pertinent negative responses have been documented in the HPI. ROS Other: All systems not noted in ROS Statement are negative. Past Medical History Past Medical History: No Reported History History of Any Multi-Drug Resistant Organisms: None Reported Past Surgical History: No Surgical Hx Reported Past Anesthesia/Blood Transfusion Reactions: No Reported Reaction Past Psychological History: No Psychological Hx Reported Smoking Status: Former smoker Past Alcohol Use History: Occasional Past Drug Use History: None Reported General Exam Limitations: no limitations Course Vital Signs 02/27/21 16:46 Temperature 99.9 F H Pulse Rate 89 Respiratory 16 Rate Blood Pressure 133/78 O2 Sat by Pulse 96 Oximetry Medical Decision Making - Lab Data Result diagrams: 02/27/21 20:17 02/27/21 20:17 Lab Results 02/27/21 02/27/21 02/27/21 Range/Units 16:51 20:17 20:17 WBC 7.9 (3.8-10.6) k/uL RBC 4.53 (4.30-5.90) m/uL Hgb 12.7 L (13.0-17.5) gm/dL Hct 38.1 L (39.0-53.0) % MCV 84.0 (80.0-100.0) fL MCH 28.0 (25.0-35.0) pg MCHC 33.3 (31.0-37.0) g/dL RDW 13.9 (11.5-15.5) % Plt Count 182 (150-450) k/uL MPV 8.7 Neutrophils % 83 % Lymphocytes % 7 % Monocytes % 8 % Eosinophils % 0 % Basophils % 0 % Neutrophils # 6.6 (1.3-7.7) k/uL Lymphocytes # 0.6 L (1.0-4.8) k/uL Monocytes # 0.7 (0-1.0) k/uL Eosinophils # 0.0 (0-0.7) k/uL Basophils # 0.0 (0-0.2) k/uL Sodium 131 L (137-145) mmol/L Potassium 3.9 (3.5-5.1) mmol/L Chloride 99 (98-107) mmol/L Carbon Dioxide 21 L (22-30) mmol/L Anion Gap 11 mmol/L BUN 66 H (9-20) mg/dL Creatinine 2.39 H (0.66-1.25) mg/dL Est GFR (CKD-EPI)AfAm 27 (>60 ml/min/1.73 sqM) Est GFR (CKD-EPI)NonAf 23 (>60 ml/min/1.73 sqM) Glucose 121 H (74-99) mg/dL Calcium 8.2 L (8.4-10.2) mg/dL Magnesium 2.1 (1.6-2.3) mg/dL Total Bilirubin 1.1 (0.2-1.3) mg/dL AST 36 (17-59) U/L ALT 24 (4-49) U/L Alkaline Phosphatase 67 (38-126) U/L Total Protein 6.5 (6.3-8.2) g/dL Albumin 3.3 L (3.5-5.0) g/dL Coronavirus (PCR) Not Detected (Not Detectd) Influenza Type A RNA (Not Detectd) Influenza Type B (PCR) (Not Detectd) RSV (PCR) (Negative) 02/27/21 Range/Units 20:17 WBC (3.8-10.6) k/uL RBC (4.30-5.90) m/uL Hgb (13.0-17.5) gm/dL Hct (39.0-53.0) % MCV (80.0-100.0) fL MCH (25.0-35.0) pg MCHC (31.0-37.0) g/dL RDW (11.5-15.5) % Plt Count (150-450) k/uL MPV Neutrophils % % Lymphocytes % % Monocytes % % Eosinophils % % Basophils % % Neutrophils # (1.3-7.7) k/uL Lymphocytes # (1.0-4.8) k/uL Monocytes # (0-1.0) k/uL Eosinophils # (0-0.7) k/uL Basophils # (0-0.2) k/uL Sodium (137-145) mmol/L Potassium (3.5-5.1) mmol/L Chloride (98-107) mmol/L Carbon Dioxide (22-30) mmol/L Anion Gap mmol/L BUN (9-20) mg/dL Creatinine (0.66-1.25) mg/dL Est GFR (CKD-EPI)AfAm (>60 ml/min/1.73 sqM) Est GFR (CKD-EPI)NonAf (>60 ml/min/1.73 sqM) Glucose (74-99) mg/dL Calcium (8.4-10.2) mg/dL Magnesium (1.6-2.3) mg/dL Total Bilirubin (0.2-1.3) mg/dL AST (17-59) U/L ALT (4-49) U/L Alkaline Phosphatase (38-126) U/L Total Protein (6.3-8.2) g/dL Albumin (3.5-5.0) g/dL Coronavirus (PCR) (Not Detectd) Influenza Type A RNA Not Detected (Not Detectd) Influenza Type B (PCR) Not Detected (Not Detectd) RSV (PCR) Negative (Negative) Disposition Clinical Impression: New onset a-fib, Pneumonia, MINI (acute kidney injury) Disposition: ADMITTED IP TO THIS HOSP Condition: Fair Referrals: Reshma Wallis MD [Primary Care Provider] - 1-2 days
--- NOTE | 2021-02-27 20:17 | XR ---
EXAMINATION TYPE: XR chest 1V portable DATE OF EXAM: 02/27/2021 COMPARISON: 09/20/2020 INDICATION: Cough TECHNIQUE: Single frontal view of the chest is obtained. FINDINGS: The heart size is normal. The pulmonary vasculature is normal. Mild right lower lobe infiltrate is present. A small right pleural effusion is present. Correlate for atelectasis and pneumonia. IMPRESSION: 1. Mild right lower lobe infiltrate. Correlate for Atelectasis or pneumonia. 2. Small right pleural effusion
[2021-02-27 20:33] LABS: Basophils % (A) 0 %; Eosinophils % (A) 0 %; HCT 38.1 % (39.0-53.0); HGB 12.7 gm/dL (13.0-17.5); Lymphocytes # (A) 0.6 k/uL (1.0-4.8); Lymphocytes % (A) 7 %; MCHC 33.3 g/dL (31.0-37.0); Mean Platelet Volume 8.7; Monocytes # (A) 0.7 k/uL (0-1.0); Monocytes % (A) 8 %; Neutrophils # (A) 6.6 k/uL (1.3-7.7); Neutrophils % (A) 83 %; Platelet Count 182 k/uL (150-450); RBC 4.53 m/uL (4.30-5.90); RDW 13.9 % (11.5-15.5); WBC 7.9 k/uL (3.8-10.6)
[2021-02-27 20:45] LABS: Albumin 3.3 g/dL (3.5-5.0); Calcium 8.2 mg/dL (8.4-10.2); Magnesium 2.1 mg/dL (1.6-2.3); Potassium 3.9 mmol/L (3.5-5.1); Total Bilirubin 1.1 mg/dL (0.2-1.3); Total Protein 6.5 g/dL (6.3-8.2)
[2021-02-27] MEDS ORDERED: cefTRIAXone IN SWFI 1,000 MG/10 ML SYRINGE IVP STA (21:03)
[2021-02-27] MEDS ORDERED: SODIUM CHLORIDE 0.9% 1,000 ML IV STA (21:03)
[2021-02-27] MEDS ORDERED: AZITHROMYCIN 500 MG in SODIUM CHLORIDE 0.9% 250 ML IVPB STA (21:03)
[2021-02-27] MEDS ORDERED: NALOXONE 0.4 MG/ML 1 ML VIAL IV PRN (21:25)
[2021-02-27] MEDS ORDERED: ACETAMINOPHEN TAB 325 MG TAB PO PRN (21:25)
[2021-02-27] MEDS ORDERED: HEPARIN SODIUM 1,000 UN/ML (10ML VL) IV ONE (21:28)
[2021-02-27] MEDS ORDERED: HEPARIN SODIUM 1,000 UN/ML (10ML VL) IV PRN (21:28)
[2021-02-27] MEDS: HEPARIN SOD,PORK IN 0.45% NACL 25,000 UNIT in 0.45% NACL 1 250ML.BAG IV SCH (22:13)
[2021-02-27] MEDS: SODIUM CHLORIDE 0.9% 1,000 ML IV SCH (22:15)
[2021-02-28 01:38] LABS: Appearance,Urine Turbid (Clear); Bacteria,Urine Few /hpf; Bilirubin,Urine Negative (Negative); Blood,Urine Moderate (Negative); Color,Urine Yellow; Glucose,Urine (UA) Negative (Negative); Ketones,Urine Negative (Negative); Leukocyte Esterase,Urine Large (Negative); Nitrite,Urine Negative (Negative); Protein,Urine 2+ (Negative); RBC,Urine 16 /hpf (0-5); Urobilinogen,Urine <2.0 mg/dL (<2.0); WBC,Urine >182 /hpf (0-5)
[2021-02-28 01:40] LABS: Specific Gravity,Urine 1.015 (1.001-1.035)
[2021-02-28] MEDS ORDERED: METOPROLOL TARTRATE 25 MG TAB PO SCH (06:00)
[2021-02-28] MEDS ORDERED: METOPROLOL TARTRATE 25 MG TAB PO STA (09:36)
--- NOTE | 2021-02-28 12:51 | ECHOF ---
Referral Reason:LV function, new onset afib MEASUREMENTS -------- HEIGHT: 172.7 cm WEIGHT: 64.9 kg BP: IVSd: 0.9 cm (0.6 - 1.1) LVIDd: 3.8 cm (3.9 - 5.3) LVPWd: 1.1 cm (0.6 - 1.1) IVSs: 1.8 cm LVIDs: 1.7 cm LVPWs: 1.4 cm RAP: 5.00 mmHg RVSP: 12.04 mmHg FINDINGS -------- Atrial fibrillation. This was a technically adequate study. The left ventricular size is normal. Left ventricular wall thickness is normal. Overall left vent ricular systolic function is normal with, an EF between 55 - 60 %. The right ventricle is normal in size. The left atrial size is normal. The right atrial size is normal. The aortic valve is trileaflet and appears structurally normal. The mitral valve is normal. There is trace mitral regurgitation. The tricuspid valve appears structurally normal. Trace tricuspid regurgitation present. Right aly tricular systolic pressure is normal at < 35 mmHg. There is no pulmonic regurgitation present. The aortic root size is normal. Normal inferior vena cava with normal inspiratory collapse consistent with estimated right atrial pre ssure of 5 mmHg. There is a small, generalized pericardial effusion present with possible clot formation. CONCLUSIONS -------- 1. The left ventricular size is normal. 2. Left ventricular wall thickness is normal. 3. Overall left ventricular systolic function is normal with, an EF between 55 - 60 %. 4. There is trace mitral regurgitation. 5. Trace tricuspid regurgitation present. 6. There is a small, generalized pericardial effusion present with possible clot formation. [employer] OPERATOR: Cassidy Pepper RDCS
[2021-02-28 13:22] VITALS: BMI 21.7
--- NOTE | 2021-02-28 13:24 | P.CRDCN ---
History of Present Illness Consult date: 02/28/21 History of present illness: HISTORY OF PRESENT ILLNESS: This is a 89-year-old male with a past medical history significant for COPD, nicotine dependence, hypertension, and hyperlipidemia. Patient follows in the office with Dr. Boucher. We have been asked to see the patient in consultation for new onset atrial fibrillation. Patient examined at the bedside. Patient is was only confused at the time of my examination. His [id number] is at the bedside and provides majority of the HPI. Patient is unsure why he came to the hospital. Patient has been diagnosed with pneumonia, acute kidney injury, and new onset atrial for ablation. The patient denies a history of atrial fibrillation. The patient's heart rate was controlled yesterday. However his heart rate is in the 120s this morning upon review of telemetry. He remains in atrial fibrillation. Blood pressure 136/65. Patient's creatinine 2.39. Baseline 1.0. The patient's [id number] states he has not been eating or drinking in the past 4 days. He denies any chest pain or pressure. Denies shortness of breath. He does report occasional palpitations over the past few months. EKG reveals atrial fibrillation with controlled ventricular rate Chest xray mild right lower lobe infiltrate. Correlate for atelectasis or pneumonia. Small right pleural effusion. Laboratory data: WBC 7.9. Hemoglobin 12.7. Platelet count 182. Sodium 131. Potassium 3.9. BUN 66. Creatinine 2.39. Troponin 1.450. Current home cardiac medications include aspirin 81 mg daily, Cardura 4 mg daily, metoprolol tartrate 25 mg twice a day, and simvastatin 20 mg at night Echocardiogram completed reveals ejection fraction 55-60%, trace mitral regurgitation, trace tricuspid regurgitation, small generalized pericardial effusion present with possible clot formation. REVIEW OF SYSTEMS: At the time of my exam: CONSTITUTIONAL: Denies fever or chills. HEENT: Denies blurred vision, vision changes, or eye pain. Denies hemoptysis CARDIOVASCULAR: Denies chest pain. Denies orthopnea. Denies PND. Denies palpitations RESPIRATORY: Denies shortness of breath. GASTROINTESTINAL: Denies abdominal pain. Denies nausea or vomiting. HEMATOLOGIC: Denies bleeding disorders. GENITOURINARY: Denies any blood in urine. SKIN: Denies pruitis. Denies rash. PHYSICAL EXAM: VITAL SIGNS: Reviewed. GENERAL: Well-developed in no acute distress. HEENT: Head is normocephalic. Pupils are equal, round. Sclerae anicteric. Mucous membranes of the mouth are moist. Neck supple. No JVD or thyromegaly LUNGS: Respirations even and unlabored. Lungs essentially clear to auscultation bilaterally. HEART: Irregular rate and rhythm. S1 and S2 heard. ABDOMEN: Soft. Nondistended. Nontender. EXTREMITIES: Normal range of motion. No clubbing or cyanosis. Peripheral pulses intact. No lower extremity edema NEUROLOGIC: Awake and alert. Oriented x 2. ASSESSMENT: Pneumonia New onset atrial fibrillation, currently with RVR Acute kidney injury Small generalized pericardial effusion present with possible clot formatio COPD Hypertension Hyperlipidemia Former nicotine dependence PLAN: 2D echo obtained and reviewed Increase metoprolol to 50mg BID Continue telemetry monitoring Check TSH Continue IV heparin. Will transition to Eliquis. However, patient has MINI, likely secondary to not eating/drinking for 4 days. Will recheck BMP tomorrow. If MINI resolves, will begin Eliquis at full dose of 5mg BID, otherwise will adj ust dosing for MINI. Further recommendations pending patient course Nurse practitioner note has been reviewed by physician. Signing provider agrees with the documented findings, assessment, and plan of care. Past Medical History Past Medical History: No Reported History History of Any Multi-Drug Resistant Organisms: None Reported Past Surgical History: No Surgical Hx Reported Past Anesthesia/Blood Transfusion Reactions: No Reported Reaction Past Psychological History: No Psychological Hx Reported Smoking Status: Former smoker Past Alcohol Use History: Occasional Past Drug Use History: None Reported - Past Family History Son(s) Family Medical History: CVA/TIA, Myocardial Infarction ([place]) Additional Family Medical History / Comment(s): heart cath with stents Medications and Allergies Home Medications Medication Instructions Recorded Confirmed Type Albuterol Inhaler [Ventolin Hfa 2 puff INHALATION RT-QID PRN 04/28/20 02/27/21 History Inhaler] Aspirin EC [Ecotrin Low Dose] 81 mg PO DAILY 04/28/20 02/27/21 History Doxazosin [Cardura] 4 mg PO DAILY 04/28/20 02/27/21 History Metoprolol Tartrate [Lopressor] 25 mg PO BID 04/28/20 02/27/21 History Simvastatin [Zocor] 20 mg PO HS 04/28/20 02/27/21 History Budesonide-Formot 160-4.5 Mcg 2 puff INHALATION RT-BID 09/20/20 02/27/21 History [Symbicort 160-4.5 Mcg Inhaler] Multivitamins, Thera [Multivitamin 1 tab PO DAILY 02/27/21 02/27/21 History (formulary)] Allergies Allergy/AdvReac Type Severity Reaction Status Date / Time No Known Allergies Allergy Verified 02/27/21 21:47 Physical Exam Vitals: Vital Signs Temp Pulse Pulse Resp BP BP Pulse Ox 02/28/21 08:00 97.5 F L 112 H 16 120/74 96 02/28/21 04:00 98.1 F 83 17 136/65 98 02/28/21 02:00 20 02/27/21 23:19 98.0 F 82 17 134/63 98 02/27/21 21:58 98.8 F 78 20 110/68 96 02/27/21 16:46 99.9 F H 89 16 133/78 96 Intake and Output 02/27/21 02/28/21 02/28/21 22:59 06:59 14:59 Intake Total 42.338 74.298 Output Total 550 Balance -507.662 74.298 Intake: Intake, IV Titration 42.338 74.298 Amount Heparin Sod,Pork in 0.45% 42.338 74.298 NaCl 25,000 unit In 0.45 % NaCl 1 250ml.bag @ 12 UNITS/KG/HR 7.076 mls/hr IV .Q24H [facility] Rx#: [id number] Output: Urine 550 Other: # Voids 1 Weight 58.967 kg 65 kg Results 02/27/21 20:17 02/27/21 20:17 Cardiac Enzymes 02/27/21 Range/Units 20:17 AST 36 (17-59) U/L Coagulation 02/28/21 02/28/21 Range/Units 02:47 09:47 APTT 31.2 H 28.1 (22.0-30.0) sec CBC 02/27/21 Range/Units 20:17 WBC 7.9 (3.8-10.6) k/uL RBC 4.53 (4.30-5.90) m/uL Hgb 12.7 L (13.0-17.5) gm/dL Hct 38.1 L (39.0-53.0) % Plt Count 182 (150-450) k/uL Comprehensive Metabolic Panel 02/27/21 Range/Units 20:17 Sodium 131 L (137-145) mmol/L Potassium 3.9 (3.5-5.1) mmol/L Chloride 99 (98-107) mmol/L Carbon Dioxide 21 L (22-30) mmol/L BUN 66 H (9-20) mg/dL Creatinine 2.39 H (0.66-1.25) mg/dL Glucose 121 H (74-99) mg/dL Calcium 8.2 L (8.4-10.2) mg/dL AST 36 (17-59) U/L ALT 24 (4-49) U/L Alkaline Phosphatase 67 (38-126) U/L Total Protein 6.5 (6.3-8.2) g/dL Albumin 3.3 L (3.5-5.0) g/dL Current Medications Generic Name Dose Route Start Last Admin Trade Name Freq PRN Reason Stop Dose Admin Acetaminophen 650 mg 02/27/21 21:25 Acetaminophen Tab 325 Mg Tab PO Q6HR PRN Mild Pain or Fever > 100.5 Heparin Sodium (Porcine) 0 unit 02/27/21 21:28 Heparin Sodium 1,000 Un/Ml (10ml Vl) IV PER PROTOCOL PRN Low PTT Protocol Sodium Chloride 1,000 mls @ 75 mls/hr 02/27/21 21:30 02/27/21 22:15 Saline 0.9% IV 75 mls/hr .[id number] FARZANA Administration Heparin Sodium/Sodium Chloride 250 mls @ 7.076 mls/hr 02/27/21 21:30 02/28/21 12:36 25,000 unit/ Sodium Chloride IV 18 units/kg/hr .Q24H FARZANA 10.614 mls/hr Titration Protocol 12 UNITS/KG/HR Ceftriaxone Sodium 1 gm/ 50 mls @ 100 mls/hr 02/28/21 11:00 02/28/21 12:29 Sodium Chloride IVPB 100 mls/hr Q24HR FARZANA Administration Metoprolol Tartrate 50 mg 02/28/21 21:00 Metoprolol Tartrate 50 Mg Tab PO BID FARZANA Naloxone HCl 0.2 mg 02/27/21 21:25 Naloxone 0.4 Mg/Ml 1 Ml Vial IV Q2M PRN Opioid Reversal Intake and Output 02/27/21 02/28/21 02/28/21 22:59 06:59 14:59 Intake Total 42.338 74.298 Output Total 550 Balance -507.662 74.298 Intake: Intake, IV Titration 42.338 74.298 Amount Heparin Sod,Pork in 0.45% 42.338 74.298 NaCl 25,000 unit In 0.45 % NaCl 1 250ml.bag @ 12 UNITS/KG/HR 7.076 mls/hr IV .Q24H [facility] Rx#: [id number] Output: Urine 550 Other: # Voids 1 Weight 58.967 kg 65 kg 02/27/21 20:17 02/27/21 20:17
[2021-02-28] MEDS ORDERED: ALBUTEROL NEBULIZED 2.5 MG/3 ML INHALATION PRN (13:54)
--- NOTE | 2021-02-28 13:54 | P.CNPUL ---
<Beckie Goodson - Last Filed: 02/28/21 13:47> History of Present Illness Consult date: 02/28/21 Requesting physician: Hali Vaughn Reason for consult: dyspnea Chief complaint: shortness of breath, palpitations History of present illness: This is a very pleasant 89-year-old gentleman who follows with Dr. Wallis as his primary care provider. He has a history of hypertension, hyperlipidemia, chronic obstructive pulmonary disease. He was brought into the emergency room yesterday with complaints of shortness of breath, palpitations poor appetite. He was found to be in atrial fibrillation with a rapid ventricular response, He is also found to have acute kidney injury. He is seen today in consultation on the selective care unit. He is currently resting quite comfortably in bed. Denies any worsening shortness of breath, cough or congestion. Denies any chest pain. He has been initiated on a heparin drip. He's been initiated on ceftriaxonefor suspected UTI. White count 7.9. Hemoglobin 12.7. Sodium 131. Potassium 3.9. Creatinine 2.39. Urinalysis with 2+ protein. Moderate blood. Large WBCs. Coronavirus by PCR not detected. TSH 1.45. Review of Systems REVIEW OF SYSTEMS: CONSTITUTIONAL: Denies any recent significant weight loss or weight gain. EYES: Denies change in vision. EARS, NOSE, MOUTH, THROAT: Denies headaches, denies sore throat. CARDIOVASCULAR: Denies chest pain, palpitations or syncopal episodes. RESPIRATORY: Positive for shortness of breath, cough, congestion or hemoptysis. GASTROINTESTINAL: Denies change in appetite, denies abdominal pain GENITOURINARY: Denies hematuria, denies infections. MUSKULOSKELETAL: Denies pain, denies swelling. INTEGUMENTARY: Denies rash, denies eczema. NEUROLOGICAL: Denies recent memory loss, no recent seizure activity. PSYCHIATRIC: Denies anxiety, denies depression. HEMATOLOGIC/LYMPHATIC: Denies anemia, denies enlarged lymph nodes. Past Medical History Past Medical History: No Reported History History of Any Multi-Drug Resistant Organisms: None Reported Past Surgical History: No Surgical Hx Reported Past Anesthesia/Blood Transfusion Reactions: No Reported Reaction Past Psychological History: No Psychological Hx Reported Smoking Status: Former smoker Past Alcohol Use History: Occasional Past Drug Use History: None Reported - Past Family History Son(s) Family Medical History: CVA/TIA, Myocardial Infarction ([place]) Additional Family Medical History / Comment(s): heart cath with stents Medications and Allergies Home Medications Medication Instructions Recorded Confirmed Type Albuterol Inhaler [Ventolin Hfa 2 puff INHALATION RT-QID PRN 04/28/20 02/27/21 History Inhaler] Aspirin EC [Ecotrin Low Dose] 81 mg PO DAILY 04/28/20 02/27/21 History Doxazosin [Cardura] 4 mg PO DAILY 04/28/20 02/27/21 History Metoprolol Tartrate [Lopressor] 25 mg PO BID 04/28/20 02/27/21 History Simvastatin [Zocor] 20 mg PO HS 04/28/20 02/27/21 History Budesonide-Formot 160-4.5 Mcg 2 puff INHALATION RT-BID 09/20/20 02/27/21 History [Symbicort 160-4.5 Mcg Inhaler] Multivitamins, Thera [Multivitamin 1 tab PO DAILY 02/27/21 02/27/21 History (formulary)] Allergies Allergy/AdvReac Type Severity Reaction Status Date / Time No Known Allergies Allergy Verified 02/27/21 21:47 Physical Exam Vitals: Vital Signs Temp Pulse Pulse Resp BP BP Pulse Ox 02/28/21 08:00 97.5 F L 112 H 16 120/74 96 02/28/21 04:00 98.1 F 83 17 136/65 98 02/28/21 02:00 20 02/27/21 23:19 98.0 F 82 17 134/63 98 02/27/21 21:58 98.8 F 78 20 110/68 96 02/27/21 16:46 99.9 F H 89 16 133/78 96 Intake and Output 02/27/21 02/28/21 02/28/21 22:59 06:59 14:59 Intake Total 42.338 74.298 Output Total 550 Balance -507.662 74.298 Intake: Intake, IV Titration 42.338 74.298 Amount Heparin Sod,Pork in 0.45% 42.338 74.298 NaCl 25,000 unit In 0.45 % NaCl 1 250ml.bag @ 12 UNITS/KG/HR 7.076 mls/hr IV .Q24H [facility] Rx#: [id number] Output: Urine 550 Other: # Voids 1 Weight 58.967 kg 65 kg 65 kg GENERAL EXAM: Alert, pleasant 89-year-old gentleman, on room air, comfortable in no apparent distress. HEAD: Normocephalic. EYES: Normal reaction of pupils, equal size. NOSE: Clear with pink turbinates. THROAT: No erythema or exudates. NECK: No masses, no JVD. CHEST: No chest wall deformity. LUNGS: Equal air entry with no crackles, wheeze, rhonchi or dullness. CVS: S1 and S2 normal with no audible murmur, irregular rhythm. ABDOMEN: No hepatosplenomegaly, normal bowel sounds, no guarding or rigidity. SPINE: No scoliosis or deformity SKIN: No rashes CENTRAL NERVOUS SYSTEM: No focal deficits, tone is normal in all 4 extremities. EXTREMITIES: There is no peripheral edema. No clubbing, no cyanosis. Peripheral pulses are intact. Normal physical exam Results - Laboratory Findings CBC and BMP: 02/27/21 20:17 02/27/21 20:17 Abnormal lab findings: Abnormal Labs 02/27/21 02/27/21 02/28/21 20:17 20:17 01:14 Hgb 12.7 L Hct 38.1 L Lymphocytes # 0.6 L APTT Sodium 131 L Carbon Dioxide 21 L BUN 66 H Creatinine 2.39 H Glucose 121 H Calcium 8.2 L Albumin 3.3 L Urine Protein 2+ H Urine Blood Moderate H Ur Leukocyte Esterase Large H Urine RBC 16 H Urine WBC >182 H Urine WBC Clumps Many H Urine Bacteria Few H 02/28/21 02:47 Hgb Hct Lymphocytes # APTT 31.2 H Sodium Carbon Dioxide BUN Creatinine Glucose Calcium Albumin Urine Protein Urine Blood Ur Leukocyte Esterase Urine RBC Urine WBC Urine WBC Clumps Urine Bacteria Assessment and Plan Assessment: 1 Generalized weakness, shortness of breath secondary to atrial fibrillation with rapid ventricular response, currently on a heparin drip 2 Acute kidney injury secondary to urinary tract infection, currently on ceftriaxone 3 chronic obstructive pulmonary disease 4 Hypertension 5 Hyperlipidemia Plan: The patient was seen and evaluated by Dr. Saldana Continue the patient's Symbicort, albuterol Continue heparin drip Cardiology consult Continue ceftriaxone Urine culture pending We will continue to follow and make further recommendations based on his clinical status Time with Patient: Greater than 30 <Bernardino Saldana - Last Filed: 02/28/21 17:47> Physical Exam Vitals: Vital Signs Temp Pulse Pulse Resp BP BP Pulse Ox 02/28/21 16:00 98.1 F 81 18 155/71 99 02/28/21 14:00 98 161 H 02/28/21 12:00 98 16 119/71 97 02/28/21 08:00 97.5 F L 112 H 16 120/74 96 02/28/21 04:00 98.1 F 83 17 136/65 98 02/28/21 02:00 20 02/27/21 23:19 98.0 F 82 17 134/63 98 02/27/21 21:58 98.8 F 78 20 110/68 96 Intake and Output 02/28/21 02/28/21 02/28/21 06:59 14:59 22:59 Intake Total 42.338 194.298 Output Total 550 Balance -507.662 194.298 Intake: Intake, IV Titration 42.338 74.298 Amount Heparin Sod,Pork in 0.45% 42.338 74.298 NaCl 25,000 unit In 0.45 % NaCl 1 250ml.bag @ 12 UNITS/KG/HR 7.076 mls/hr IV .Q24H [facility] Rx#: [id number] Oral 120 Output: Urine 550 Other: # Voids 1 Weight 65 kg 65 kg Results - Laboratory Findings CBC and BMP: 02/27/21 20:17 02/28/21 14:06 Abnormal lab findings: Abnormal Labs 02/27/21 02/27/21 02/28/21 20:17 20:17 01:14 Hgb 12.7 L Hct 38.1 L Lymphocytes # 0.6 L APTT Sodium 131 L Carbon Dioxide 21 L BUN 66 H Creatinine 2.39 H Glucose 121 H Calcium 8.2 L Albumin 3.3 L Urine Protein 2+ H Urine Blood Moderate H Ur Leukocyte Esterase Large H Urine RBC 16 H Urine WBC >182 H Urine WBC Clumps Many H Urine Bacteria Few H 02/28/21 02/28/21 02:47 14:06 Hgb Hct Lymphocytes # APTT 31.2 H Sodium 134 L Carbon Dioxide 19 L BUN 65 H Creatinine 2.50 H Glucose 110 H Calcium 7.6 L Albumin Urine Protein Urine Blood Ur Leukocyte Esterase Urine RBC Urine WBC Urine WBC Clumps Urine Bacteria
[2021-02-28 14:50] LABS: Calcium 7.6 mg/dL (8.4-10.2); Potassium 3.8 mmol/L (3.5-5.1)
[2021-02-28] MEDS: ATORVASTATIN 10 MG TAB PO SCH (20:24)
[2021-02-28] MEDS: METOPROLOL TARTRATE 50 MG TAB PO SCH (20:24)
[2021-02-28] MEDS: SYMBICORT 160-4.5 MCG INHALER INHALATION SCH (21:08)
--- NOTE | 2021-02-28 22:49 | P.HPIM ---
History of Present Illness H&P Date: 02/28/21 Chief Complaint: Generalized weakness. Patient is a 89-year-old male with a known history of COPD, hypertension and previous history of smoking was sent to ER due to complaints of fatigue, cough. Apparently patient has been having cough for and poor appetite and low-grade f may for the past 3 to 4 days. Patient denies any complaints of chest pain. No shortness of breath. Patient states that he does not know why he is in the hospital. Patient has been having poor appetite and has not been eating for the past 4 to 5 days. Chest x-ray showed mild right lower lobe infiltrate. Correlate for atelectasis or pneumonia. Small right pleural effusion. EKG showed atrial fibrillation with ventricular rate 97 Laboratory data showed sodium 131 potassium 3.9 chloride 99 bicarb is 21, BUN 66 and creatinine 2.39 Liver enzymes are not elevated TSH 1.450 Urinalysis showed moderate blood large leukoesterase and elevated RBCs and WBCs. COVID-19 PCR not detected. Review of Systems Constitutional: Patient denies any fever or chills . No generalized weakness or weight loss. Abdomen: Patient denied nausea vomiting and diarrhea and abdominal pain. Cardiovascular: Patient denies any chest pain or short of breath no palpitatio ns. Respiratory: patient denied any cough is from production. No shortness of breath Neurologic: Patient denied any numbness or tingling headache. Musculoskeletal: Patient denies any complaints of joint swelling or deformity. Skin: Negative Psychiatric: Negative Endocrine: No heat or cold intolerance. No recent weight gain. Genitourinary: No dysuria or hematuria. All other 14 point ROS negative except the above Past Medical History Past Medical History: No Reported History History of Any Multi-Drug Resistant Organisms: None Reported Past Surgical History: No Surgical Hx Reported Past Anesthesia/Blood Transfusion Reactions: No Reported Reaction Past Psychological History: No Psychological Hx Reported Smoking Status: Former smoker Past Alcohol Use History: Occasional Past Drug Use History: None Reported - Past Family History Son(s) Family Medical History: CVA/TIA, Myocardial Infarction ([place]) Additional Family Medical History / Comment(s): heart cath with stents Medications and Allergies Home Medications Medication Instructions Recorded Confirmed Type Albuterol Inhaler [Ventolin Hfa 2 puff INHALATION RT-QID PRN 04/28/20 02/27/21 History Inhaler] Aspirin EC [Ecotrin Low Dose] 81 mg PO DAILY 04/28/20 02/27/21 History Doxazosin [Cardura] 4 mg PO DAILY 04/28/20 02/27/21 History Metoprolol Tartrate [Lopressor] 25 mg PO BID 04/28/20 02/27/21 History Simvastatin [Zocor] 20 mg PO HS 04/28/20 02/27/21 History Budesonide-Formot 160-4.5 Mcg 2 puff INHALATION RT-BID 09/20/20 02/27/21 History [Symbicort 160-4.5 Mcg Inhaler] Multivitamins, Thera [Multivitamin 1 tab PO DAILY 02/27/21 02/27/21 History (formulary)] Apixaban [Eliquis] 2.5 mg PO BID #60 tab 03/01/21 Rx Allergies Allergy/AdvReac Type Severity Reaction Status Date / Time No Known Allergies Allergy Verified 02/27/21 21:47 Physical Exam Vitals: Vital Signs Temp Pulse Pulse Resp BP BP Pulse Ox 02/28/21 04:00 98.1 F 83 17 136/65 98 02/28/21 02:00 20 02/27/21 23:19 98.0 F 82 17 134/63 98 02/27/21 21:58 98.8 F 78 20 110/68 96 02/27/21 16:46 99.9 F H 89 16 133/78 96 Intake and Output 02/27/21 02/28/21 02/28/21 22:59 06:59 14:59 Intake Total 42.338 Output Total 550 Balance -507.662 Intake: Intake, IV Titration 42.338 Amount Heparin Sod,Pork in 0.45% 42.338 NaCl 25,000 unit In 0.45 % NaCl 1 250ml.bag @ 12 UNITS/KG/HR 7.076 mls/hr IV .Q24H [facility] Rx#: [id number] Output: Urine 550 Other: Weight 58.967 kg 65 kg PHYSICAL EXAMINATION: Patient is lying in the bed comfortably, no acute distress, awake alert and oriented.. HEENT: Normocephalic. Neck is supple. Pupils reactive. Nostrils clear. Oral cavity is moist. Neck reveals no JVD, carotid bruits, or thyromegaly. CHEST EXAMINATION: Trachea is central. Symmetrical expansion. Lung patterson clear to auscultation and percussion. CARDIAC: Normal S1, S2 with no gallops. No murmurs ABDOMEN: Soft. Bowel sounds normal. No organomegaly. No abdominal bruits. Extremities: reveal no edema. No clubbing or cyanosis Neurologically awake, alert, oriented x3 with well-coordinated movements. No focal deficits noted Skin: No rash or skin lesions. Psychiatric: Coperative. Nonsuicidal Musculoskeletal: No joint swelling or deformity. Normal range of motion. Results CBC & Chem 7: 03/02/21 11:09 03/02/21 11:09 Labs: Abnormal Lab Results - Last 24 Hours (Table) 02/27/21 02/27/21 02/28/21 Range/Units 20:17 20:17 01:14 Hgb 12.7 L (13.0-17.5) gm/dL Hct 38.1 L (39.0-53.0) % Lymphocytes # 0.6 L (1.0-4.8) k/uL APTT (22.0-30.0) sec Sodium 131 L (137-145) mmol/L Carbon Dioxide 21 L (22-30) mmol/L BUN 66 H (9-20) mg/dL Creatinine 2.39 H (0.66-1.25) mg/dL Glucose 121 H (74-99) mg/dL Calcium 8.2 L (8.4-10.2) mg/dL Albumin 3.3 L (3.5-5.0) g/dL Urine Protein 2+ H (Negative) Urine Blood Moderate H (Negative) Ur Leukocyte Esterase Large H (Negative) Urine RBC 16 H (0-5) /hpf Urine WBC >182 H (0-5) /hpf Urine WBC Clumps Many H (None) /hpf Urine Bacteria Few H (None) /hpf 02/28/21 Range/Units 02:47 Hgb (13.0-17.5) gm/dL Hct (39.0-53.0) % Lymphocytes # (1.0-4.8) k/uL APTT 31.2 H (22.0-30.0) sec Sodium (137-145) mmol/L Carbon Dioxide (22-30) mmol/L BUN (9-20) mg/dL Creatinine (0.66-1.25) mg/dL Glucose (74-99) mg/dL Calcium (8.4-10.2) mg/dL Albumin (3.5-5.0) g/dL Urine Protein (Negative) Urine Blood (Negative) Ur Leukocyte Esterase (Negative) Urine RBC (0-5) /hpf Urine WBC (0-5) /hpf Urine WBC Clumps (None) /hpf Urine Bacteria (None) /hpf Thrombosis Risk Factor Assmnt - DVT/VTE Prophylaxis DVT/VTE Prophylaxis: Pharmacologic Prophylaxis ordered - Choose All That Apply Any of the Below Risk Factors Present?: No Other Risk Factors: Yes Each Risk Factor Represents 3 Points: Age 75 years or older Other congenital or acquired thrombophilia - If yes, enter type in comment: No Thrombosis Risk Factor Assessment Total Risk Factor Score: 3 Thrombosis Risk Factor Assessment Level: Moderate Risk Assessment and Plan Assessment: New onset atrial fibrillation with rapid ventricular rate. Acute kidney injury. Likely prerenal and possible ATN. Acute urinary tract infection COPD Hypertension Hyperlipidemia Related to smoking DVT prophylaxis patient is already on heparin drip Plan: Patient will be continued on telemetry monitoring. Heparin drip was started. Heart rate is controlled now. Patient is being current on duo nebs and Symbicort. Continue ceftriaxone and follow-up urine culture report. 2D echocardiogram showed normal ejection fraction. No significant valvular abnormalities. Small pericardial effusion. TSH within normal limits. Cardiology is on board. Continue to follow closely. Time with Patient: Greater than 30
[2021-02-28] MEDS: SODIUM CHLORIDE 0.9% 1,000 ML IV SCH (23:58)
[2021-03-01] MEDS: HEPARIN SOD,PORK IN 0.45% NACL 25,000 UNIT in 0.45% NACL 1 250ML.BAG IV SCH (00:11)
[2021-03-01 02:38] LABS: Basophils % (A) 0 %; Eosinophils % (A) 0 %; HGB 10.8 gm/dL (13.0-17.5); Lymphocytes # (A) 0.5 k/uL (1.0-4.8); Lymphocytes % (A) 6 %; MCH 27.7 pg (25.0-35.0); MCHC 32.6 g/dL (31.0-37.0); Mean Platelet Volume 8.4; Monocytes # (A) 0.5 k/uL (0-1.0); Monocytes % (A) 6 %; Neutrophils % (A) 87 %; Platelet Count 181 k/uL (150-450); RBC 3.88 m/uL (4.30-5.90); RDW 14.2 % (11.5-15.5); WBC 9.2 k/uL (3.8-10.6)
[2021-03-01 03:04] LABS: Calcium 7.8 mg/dL (8.4-10.2); Potassium 3.6 mmol/L (3.5-5.1)
[2021-03-01] MEDS: ASPIRIN 81 MG PO SCH (08:14)
[2021-03-01] MEDS: METOPROLOL TARTRATE 50 MG TAB PO SCH ×2 (08:14→20:26)
[2021-03-01] MEDS: DOXAZOSIN 4 MG TAB PO SCH (08:14)
[2021-03-01] MEDS: SYMBICORT 160-4.5 MCG INHALER INHALATION SCH ×2 (09:30→19:55)
--- NOTE | 2021-03-01 11:28 | P.PN ---
Subjective Progress Note Date: 03/01/21 HISTORY OF PRESENT ILLNESS: This is a 89-year-old male with a past medical history significant for COPD, nicotine dependence, hypertension, and hyperlipidemia. Patient follows in the office with Dr. Boucher. We have been asked to see the patient in consultation for new onset atrial fibrillation. Patient examined at the bedside. Patient is was only confused at the time of my examination. His [id number] is at the bedside and provides majority of the HPI. Patient is unsure why he came to the hospital. Patient has been diagnosed with pneumonia, acute kidney injury, and new onset atrial for ablation. The patient denies a history of atrial fibrillation. The patient's heart rate was controlled yesterday. However his heart rate is in the 120s this morning upon review of telemetry. He remains in atrial fibrillation. Blood pressure 136/65. Patient's creatinine 2.39. Baseline 1.0. The patient's [id number] states he has not been eating or drinking in the past 4 days. He denies any chest pain or pressure. Denies shortness of breath. He does report occasional palpitations over the past few months. EKG reveals atrial fibrillation with controlled ventricular rate Chest xray mild right lower lobe infiltrate. Correlate for atelectasis or pneumonia. Small right pleural effusion. Laboratory data: WBC 7.9. Hemoglobin 12.7. Platelet count 182. Sodium 131. Potassium 3.9. BUN 66. Creatinine 2.39. Troponin 1.450. Current home cardiac medications include aspirin 81 mg daily, Cardura 4 mg daily, metoprolol tartrate 25 mg twice a day, and simvastatin 20 mg at night Echocardiogram completed reveals ejection fraction 55-60%, trace mitral regurgitation, trace tricuspid regurgitation, small generalized pericardial effusion present with possible clot formation. 03/01/2021 Patient examined this morning at the bedside. Patient denies chest pain or pressure. He denies shortness of breath. Patient's blood pressure ranging with a systolic between 140 and 170. Patient's creatinine remains elevated at 2.39. Telemetry reveals sinus mechanism. He remains on IV heparin. PHYSICAL EXAM: VITAL SIGNS: Reviewed. GENERAL: Well-developed in no acute distress. HEENT: Head is normocephalic. Pupils are equal, round. Sclerae anicteric. Mucous membranes of the mouth are moist. Neck supple. No JVD or thyromegaly LUNGS: Respirations even and unlabored. Lungs essentially clear to auscultation bilaterally. HEART: Regular rate and rhythm. S1 and S2 heard. EXTREMITIES: Normal range of motion. No clubbing or cyanosis. Peripheral pulses intact. No lower extremity edema ASSESSMENT: Pneumonia New onset atrial fibrillation RVR, currently maintaining sinus mechanism Acute kidney injury Small generalized pericardial effusion present with possible clot formation COPD Hypertension Hyperlipidemia Former nicotine dependence PLAN: Continue current cardiac medications Continue telemetry monitoring Discontinue IV heparin Begin Eliquis 2.5 mg twice a day. Case management consulted for insurance coverage Add Norvasc 5 mg daily for optimal blood pressure control Further recommendations pending patient course Nurse practitioner note has been reviewed by physician. Signing provider agrees with the documented findings, assessment, and plan of care. Objective - Vital Signs Vital signs: Vital Signs Temp 98.3 F 03/01/21 07:52 Pulse 82 03/01/21 07:52 Resp 16 03/01/21 07:52 BP 174/74 03/01/21 07:52 Pulse Ox 97 03/01/21 07:52 Intake & Output 02/28/21 03/01/21 03/01/21 18:59 06:59 18:59 Intake Total 542.588 6592.107 240 Balance 393.107 2346.107 240 Weight 65 kg 65.2 kg Intake: Intake, IV Titration 74.298 1053.107 Amount Heparin Sod,Pork in 0.45% 74.298 153.107 NaCl 25,000 unit In 0.45 % NaCl 1 250ml.bag @ 12 UNITS/KG/HR 7.076 mls/hr IV .Q24H [facility] Rx#: [id number] Sodium Chloride 0.9% 1, 900 000 ml @ 75 mls/hr IV . [id number] [facility] Rx#:[id number] Oral 360 120 240 Other: # Voids 1 1 - Labs CBC & Chem 7: 03/01/21 02:05 03/01/21 02:05 Labs: Abnormal Lab Results - Last 24 Hours (Table) 02/28/21 03/01/21 03/01/21 Range/Units 14:06 02:05 02:05 RBC (4.30-5.90) m/uL Hgb (13.0-17.5) gm/dL Hct (39.0-53.0) % Neutrophils # (1.3-7.7) k/uL Lymphocytes # (1.0-4.8) k/uL APTT 47.2 H (22.0-30.0) sec Sodium 134 L 134 L (137-145) mmol/L Carbon Dioxide 19 L 17 L (22-30) mmol/L BUN 65 H 65 H (9-20) mg/dL Creatinine 2.50 H 2.39 H (0.66-1.25) mg/dL Glucose 110 H 116 H (74-99) mg/dL Calcium 7.6 L 7.8 L (8.4-10.2) mg/dL 03/01/21 Range/Units 02:05 RBC 3.88 L (4.30-5.90) m/uL Hgb 10.8 L (13.0-17.5) gm/dL Hct 33.0 L (39.0-53.0) % Neutrophils # 8.0 H (1.3-7.7) k/uL Lymphocytes # 0.5 L (1.0-4.8) k/uL APTT (22.0-30.0) sec Sodium (137-145) mmol/L Carbon Dioxide (22-30) mmol/L BUN (9-20) mg/dL Creatinine (0.66-1.25) mg/dL Glucose (74-99) mg/dL Calcium (8.4-10.2) mg/dL
[2021-03-01] MEDS: APIXABAN 2.5 MG TABLET PO SCH ×2 (12:17→20:26)
[2021-03-01] MEDS: amLODIPine 5 MG TAB PO SCH (12:17)
[2021-03-01] MEDS: SODIUM CHLORIDE 0.9% 1,000 ML IV SCH ×2 (12:17→18:16)
--- NOTE | 2021-03-01 16:12 | P.PN ---
Subjective Progress Note Date: 03/01/21 This is a very pleasant 89-year-old gentleman who follows with Dr. Wallis as his primary care provider. He has a history of hypertension, hyperlipidemia, chronic obstructive pulmonary disease. He was brought into the emergency room yesterday with complaints of shortness of breath, palpitations poor appetite. He was found to be in atrial fibrillation with a rapid ventricular response, He is also found to have acute kidney injury. He is seen today in consultation on the selective care unit. He is currently resting quite comfortably in bed. Denies any worsening shortness of breath, cough or congestion. Denies any chest pain. He has been initiated on a heparin drip. He's been initiated on ce ftriaxonefor suspected UTI. White count 7.9. Hemoglobin 12.7. Sodium 131. Potassium 3.9. Creatinine 2.39. Urinalysis with 2+ protein. Moderate blood. Large WBCs. Coronavirus by PCR not detected. TSH 1.45. 03/01/2021, the patient remains in atrial fibrillation. The patient will be taken off the IV heparin and the patient will be started on Eliquis for now. Doing well. If she continues to improve as the patient is being hydrated. Creatinine is down to 2.3 from baseline of 2.5 at a time of admission. Serum bicarbonate 17. Sodium level is at 134. White cell count 9.2 with hemoglobin 10.8. COVID 19 testing was negative and the patient is quite comfortable at this point in time. No signs of any respiratory distress. No chest pain. No palpitation. No syncope. He is on room air oxygen. Objective - Vital Signs Vital signs: Vital Signs Temp 97.7 F 03/01/21 12:00 Pulse 80 03/01/21 12:00 Resp 16 03/01/21 12:00 BP 126/60 03/01/21 12:00 Pulse Ox 96 03/01/21 12:00 Intake & Output 02/28/21 03/01/21 03/01/21 18:59 06:59 18:59 Intake Total 095.590 8290.107 890 Balance 995.849 1003.107 890 Weight 65 kg 65.2 kg Intake: Intake, IV Titration 74.298 1053.107 650 Amount Heparin Sod,Pork in 0.45% 74.298 153.107 NaCl 25,000 unit In 0.45 % NaCl 1 250ml.bag @ 12 UNITS/KG/HR 7.076 mls/hr IV .Q24H [facility] Rx#: [id number] Sodium Chloride 0.9% 1, 900 600 000 ml @ 75 mls/hr IV . [id number] [facility] Rx#:[id number] cefTRIAXone 1 gm In 50 Sodium Chloride 0.9% 50 ml @ 100 mls/hr IVPB Q24HR [facility] Rx#:[id number] Oral 360 120 240 Other: # Voids 1 1 - Exam GENERAL EXAM: Alert, pleasant 89-year-old gentleman, on room air, comfortable in no apparent distress. HEAD: Normocephalic. EYES: Normal reaction of pupils, equal size. NOSE: Clear with pink turbinates. THROAT: No erythema or exudates. NECK: No masses, no JVD. CHEST: No chest wall deformity. LUNGS: Equal air entry with no crackles, wheeze, rhonchi or dullness. CVS: S1 and S2 normal with no audible murmur, irregular rhythm. ABDOMEN: No hepatosplenomegaly, normal bowel sounds, no guarding or rigidity. SPINE: No scoliosis or deformity SKIN: No rashes CENTRAL NERVOUS SYSTEM: No focal deficits, tone is normal in all 4 extremities. EXTREMITIES: There is no peripheral edema. No clubbing, no cyanosis. Peripheral pulses are intact. Normal physical exam - Labs CBC & Chem 7: 03/01/21 02:05 03/01/21 02:05 Labs: Abnormal Lab Results - Last 24 Hours (Table) 03/01/21 03/01/21 03/01/21 Range/Units 02:05 02:05 02:05 RBC 3.88 L (4.30-5.90) m/uL Hgb 10.8 L (13.0-17.5) gm/dL Hct 33.0 L (39.0-53.0) % Neutrophils # 8.0 H (1.3-7.7) k/uL Lymphocytes # 0.5 L (1.0-4.8) k/uL APTT 47.2 H (22.0-30.0) sec Sodium 134 L (137-145) mmol/L Carbon Dioxide 17 L (22-30) mmol/L BUN 65 H (9-20) mg/dL Creatinine 2.39 H (0.66-1.25) mg/dL Glucose 116 H (74-99) mg/dL Calcium 7.8 L (8.4-10.2) mg/dL Assessment and Plan Plan: 1 atrial fibrillation, rate is controlled and the patient is currently on IV heparin this will be switched to oral anticoagulants. Rate is controlled. The echocardiogram was completed and the patient has a normal ejection fraction of around 55-60%. No significant valvular disease. Patient is in atrial fibrillation. 2 Acute kidney injury secondary to urinary tract infection, currently on ceftriaxone, clinically improving and creatinine is improving and the patient is currently on IV Rocephin any further cultures 3 chronic obstructive pulmonary disease, currently inactive in stable 4 Hypertension 5 Hyperlipidemia Plan: start the patient oral and coagulation with Eliquis 2.5 mg by mouth twice a day Continue the patient's Symbicort, albuterol Stop the IV heparin Cardiology consult Continue ceftriaxone, pending final cultures IV fluids We will continue to follow and make further recommendations based on his clinical status
[2021-03-01] MEDS: ATORVASTATIN 10 MG TAB PO SCH (20:26)
[2021-03-02] MEDS: SODIUM CHLORIDE 0.9% 1,000 ML IV SCH (03:20)
[2021-03-02] MEDS: amLODIPine 5 MG TAB PO SCH (08:27)
[2021-03-02] MEDS: ASPIRIN 81 MG PO SCH (08:27)
[2021-03-02] MEDS: DOXAZOSIN 4 MG TAB PO SCH (08:27)
[2021-03-02] MEDS: METOPROLOL TARTRATE 50 MG TAB PO SCH (08:27)
[2021-03-02] MEDS: APIXABAN 2.5 MG TABLET PO SCH (08:27)
[2021-03-02 08:30] VITALS: RESP 16; TEMP 97.9
[2021-03-02] MEDS: SYMBICORT 160-4.5 MCG INHALER INHALATION SCH (08:34)
[2021-03-02 11:52] VITALS: BP 115/56; PULSE 71
[2021-03-02 11:58] LABS: Basophils % (A) 0 %; Eosinophils % (A) 0 %; HCT 32.8 % (39.0-53.0); HGB 10.7 gm/dL (13.0-17.5); Lymphocytes # (A) 0.9 k/uL (1.0-4.8); Lymphocytes % (A) 10 %; MCHC 32.5 g/dL (31.0-37.0); Mean Platelet Volume 8.1; Monocytes # (A) 0.4 k/uL (0-1.0); Monocytes % (A) 5 %; Neutrophils # (A) 7.4 k/uL (1.3-7.7); Neutrophils % (A) 83 %; Platelet Count 220 k/uL (150-450); RBC 3.81 m/uL (4.30-5.90); RDW 14.2 % (11.5-15.5); WBC 8.9 k/uL (3.8-10.6)
[2021-03-02 12:19] LABS: Calcium 7.6 mg/dL (8.4-10.2); Potassium 3.4 mmol/L (3.5-5.1)
--- NOTE | 2021-03-02 14:27 | P.PN ---
Subjective Progress Note Date: 03/01/21 Principal diagnosis: New onset atrial fibrillation Acute kidney injury Patient is a 89-year-old male with a known history of COPD, hypertension and previous history of smoking was sent to ER due to complaints of fatigue, cough. Apparently patient has been having cough for and poor appetite and low-grade fevers for the past 3 to 4 days. Patient denies any complaints of chest pain. No shortness of breath. Patient states that he does not know why he is in the hospital. Patient has been having poor appetite and has not been eating for the past 4 to 5 days. Chest x-ray showed mild right lower lobe infiltrate. Correlate for atelectasis or pneumonia. Small right pleural effusion. EKG showed atrial fibrillation with ventricular rate 97 Laboratory data showed sodium 131 potassium 3.9 chloride 99 bicarb is 21, BUN 66 and creatinine 2.39 Liver enzymes are not elevated TSH 1.450 Urinalysis showed moderate blood large leukoesterase and elevated RBCs and WBCs. COVID-19 PCR not detected. 03/01/2021 Patient is currently lying in the bed comfortably. No complaints of chest pain or short of breath. Patient is off heparin drip and was started on Eliquis due to new onset atrial fibrillation. Patient is being continued on IV hydration and creatinine is down to 2.3. Other laboratory data showed sodium 134 potassium 3.6 BUN 65 and creatinine 2.39. Sodium 134. Patient is being current on antibiotics the form of ceftriaxone for urinary tract infection. Encourage oral intake. Patient has been afebrile. No nausea vomiting or abdominal pain or diarrhea. No complaints of headache or dizziness or lightheadedness. Patient is in sinus rhythm. Current medications reviewed. Objective - Vital Signs Vital signs: Vital Signs Temp 98.2 F 03/01/21 19:56 Pulse 83 03/01/21 19:56 Resp 18 03/01/21 19:56 BP 121/59 03/01/21 19:56 Pulse Ox 97 03/01/21 19:56 Intake & Output 03/01/21 03/01/21 03/02/21 06:59 18:59 06:59 Intake Total 8501.551 9812 Balance 3014.566 7639 Weight 65.2 kg Intake: Intake, IV Titration 1053.107 650 Amount Heparin Sod,Pork in 0.45% 153.107 NaCl 25,000 unit In 0.45 % NaCl 1 250ml.bag @ 12 UNITS/KG/HR 7.076 mls/hr IV .Q24H [facility] Rx#: [id number] Sodium Chloride 0.9% 1, 900 600 000 ml @ 75 mls/hr IV . [id number] [facility] Rx#:[id number] cefTRIAXone 1 gm In 50 Sodium Chloride 0.9% 50 ml @ 100 mls/hr IVPB Q24HR [facility] Rx#:[id number] Oral 120 480 Other: # Voids 1 - Exam PHYSICAL EXAMINATION: Patient is lying in the bed comfortably, no acute distress, awake alert and oriented.. HEENT: Normocephalic. Neck is supple. Pupils reactive. Nostrils clear. Oral cavity is moist. Neck reveals no JVD, carotid bruits, or thyromegaly. CHEST EXAMINATION: Trachea is central. Symmetrical expansion. Lung patterson clear to auscultation and percussion. CARDIAC: Normal S1, S2 with no gallops. No murmurs ABDOMEN: Soft. Bowel sounds normal. No organomegaly. No abdominal bruits. Extremities: reveal no edema. No clubbing or cyanosis Neurologically awake, alert, oriented x3 with well-coordinated movements. No focal deficits noted Skin: No rash or skin lesions. Psychiatric: Coperative. Nonsuicidal Musculoskeletal: No joint swelling or deformity. Normal range of motion. - Labs CBC & Chem 7: 03/02/21 11:09 03/02/21 11:09 Labs: Abnormal Lab Results - Last 24 Hours (Table) 03/01/21 03/01/21 03/01/21 Range/Units 02:05 02:05 02:05 RBC 3.88 L (4.30-5.90) m/uL Hgb 10.8 L (13.0-17.5) gm/dL Hct 33.0 L (39.0-53.0) % Neutrophils # 8.0 H (1.3-7.7) k/uL Lymphocytes # 0.5 L (1.0-4.8) k/uL APTT 47.2 H (22.0-30.0) sec Sodium 134 L (137-145) mmol/L Carbon Dioxide 17 L (22-30) mmol/L BUN 65 H (9-20) mg/dL Creatinine 2.39 H (0.66-1.25) mg/dL Glucose 116 H (74-99) mg/dL Calcium 7.8 L (8.4-10.2) mg/dL Assessment and Plan Assessment: New onset atrial fibrillation with rapid ventricular rate. Acute kidney injury. Likely prerenal and possible ATN. Improving. Acute urinary tract infection COPD Hypertension Hyperlipidemia Related to smoking DVT prophylaxis patient is already on heparin drip Plan: Patient will be continued on telemetry monitoring. Heparin drip been discontinued. Patient was started on Eliquis 2.5 mg twice daily.. Heart rate is controlled now. Patient is being current on duo nebs and Symbicort. Continue ceftriaxone and follow-up urine culture report. 2D echocardiogram showed normal ejection fraction. No significant valvular abnormalities. Small pericardial effusion. TSH within normal limits. Cardiology and pulmonary is on board. Continue to follow closely. Time with Patient: Greater than 30
[2021-03-02] MEDS ORDERED: POTASSIUM CHLORIDE ER 20 MEQ TAB.ER PO STA (14:28)
--- NOTE | 2021-03-02 14:54 | P.PN ---
Subjective Progress Note Date: 03/02/21 This is a very pleasant 89-year-old gentleman who follows with Dr. Wallis as his primary care provider. He has a history of hypertension, hyperlipidemia, chronic obstructive pulmonary disease. He was brought into the emergency room yesterday with complaints of shortness of breath, palpitations poor appetite. He was found to be in atrial fibrillation with a rapid ventricular response, He is also found to have acute kidney injury. He is seen today in consultation on the selective care unit. He is currently resting quite comfortably in bed. Denies any worsening shortness of breath, cough or congestion. Denies any chest pain. He has been initiated on a heparin drip. He's been initiated on ce ftriaxonefor suspected UTI. White count 7.9. Hemoglobin 12.7. Sodium 131. Potassium 3.9. Creatinine 2.39. Urinalysis with 2+ protein. Moderate blood. Large WBCs. Coronavirus by PCR not detected. TSH 1.45. 03/01/2021, the patient remains in atrial fibrillation. The patient will be taken off the IV heparin and the patient will be started on Eliquis for now. Doing well. If she continues to improve as the patient is being hydrated. Creatinine is down to 2.3 from baseline of 2.5 at a time of admission. Serum bicarbonate 17. Sodium level is at 134. White cell count 9.2 with hemoglobin 10.8. COVID 19 testing was negative and the patient is quite comfortable at this point in time. No signs of any respiratory distress. No chest pain. No palpitation. No syncope. He is on room air oxygen. 03/02/2021, the patient is on room air oxygen. Has no respiratory difficulties. The patient has chronic atrial fibrillation. He is currently anticoagulated with Eliquis 2.5 mg by mouth twice a day. Creatinine is stable and so also improving. Currently is down to 2.1. The patient is being treated for an underlying urinary tract infection. Serum bicarbonate of 19. Hemoglobin is at 10.7. His resting comfortably in bed. No chest pain. No cough sputum production chest tightness or wheezing. Objective - Vital Signs Vital signs: Vital Signs Temp 97.9 F 03/02/21 08:00 Pulse 71 03/02/21 11:52 Resp 16 03/02/21 11:52 BP 115/56 03/02/21 11:52 Pulse Ox 97 03/02/21 11:52 Intake & Output 03/01/21 03/02/21 03/02/21 18:59 06:59 18:59 Intake Total 1130 1620 360 Balance 1130 1620 360 Weight 65 kg Intake: Intake, IV Titration 650 900 Amount Sodium Chloride 0.9% 1, 600 900 000 ml @ 75 mls/hr IV . [id number] [facility] Rx#:[id number] cefTRIAXone 1 gm In 50 Sodium Chloride 0.9% 50 ml @ 100 mls/hr IVPB Q24HR [facility] Rx#:[id number] Oral 480 720 360 Other: # Voids 2 - Exam GENERAL EXAM: Alert, pleasant 89-year-old gentleman, on room air, comfortable in no apparent distress. HEAD: Normocephalic. EYES: Normal reaction of pupils, equal size. NOSE: Clear with pink turbinates. THROAT: No erythema or exudates. NECK: No masses, no JVD. CHEST: No chest wall deformity. LUNGS: Equal air entry with no crackles, wheeze, rhonchi or dullness. CVS: S1 and S2 normal with no audible murmur, irregular rhythm. ABDOMEN: No hepatosplenomegaly, normal bowel sounds, no guarding or rigidity. SPINE: No scoliosis or deformity SKIN: No rashes CENTRAL NERVOUS SYSTEM: No focal deficits, tone is normal in all 4 extremities. EXTREMITIES: There is no peripheral edema. No clubbing, no cyanosis. Peripheral pulses are intact. Normal physical exam - Labs CBC & Chem 7: 03/02/21 11:09 03/02/21 11:09 Labs: Abnormal Lab Results - Last 24 Hours (Table) 03/02/21 03/02/21 Range/Units 11: 11:09 RBC 3.81 L (4.30-5.90) m/uL Hgb 10.7 L (13.0-17.5) gm/dL Hct 32.8 L (39.0-53.0) % Lymphocytes # 0.9 L (1.0-4.8) k/uL Potassium 3.4 L (3.5-5.1) mmol/L Chloride 110 H (98-107) mmol/L Carbon Dioxide 19 L (22-30) mmol/L BUN 51 H (9-20) mg/dL Creatinine 2.16 H (0.66-1.25) mg/dL Glucose 114 H (74-99) mg/dL Calcium 7.6 L (8.4-10.2) mg/dL Assessment and Plan Plan: 1 atrial fibrillation, rate is controlled and the patient is currently on IV heparin this will be switched to oral anticoagulants. Rate is controlled. The echocardiogram was completed and the patient has a normal ejection fraction of around 55-60%. No significant valvular disease. Patient is in atrial fibrillation. The patient is fully anticoagulated at this point in time. 2 Acute kidney injury secondary to urinary tract infection, currently on ceftriaxone, clinically improving and creatinine is improving and the patient is currently on IV Rocephin any further cultures, renal function continues to improve 3 chronic obstructive pulmonary disease, currently inactive in stable 4 Hypertension 5 Hyperlipidemia Plan: Continue Eliquis 2.5 mg by mouth twice a day Continue the patient's Symbicort, albuterol May suggest this patient oral antibiotics and discharged home Clear for discharge from a pulmonary standpoint. His COPD stable. Atrial fibrillation is well-controlled and the patient is on anticoagulants for now. Renal function continues to improve.
--- NOTE | 2021-03-02 15:21 | PN ---
PROGRESS NOTE Chris is an 89-year-old gentleman with history of COPD, hypertension, dyslipidemia, who was admitted to hospital with new onset atrial fibrillation. The patient is pleasantly confused. He is free of symptoms. EXAM: Vital signs are stable. Chest exam reveals good air entry bilaterally. Heart exam reveals first and second heart sounds and a 2/6 systolic murmur at the left lower sternal border. Abdomen: Soft. Exam of extremities did not reveal any edema. Peripheral pulses are felt. LABS: Labs show a hemoglobin of 10.7, platelet count is 220, potassium is 3.4, BUN is 51, creatinine is 2.1. An echocardiogram showed normal LV systolic function. ASSESSMENT: Persistent atrial fibrillation with controlled ventricular rate. PLAN: The patient will continue current medications including the Eliquis. MMODL / IJN: [id number] /
== END 2021-03-02 16:24 | disposition home or self-care (01) | DRG 682 ==
LOC: EC 15:52 → 3SCARD 21:25
PROVIDERS: ADMIT Hospitalist; ATTEND Hospitalist
DX: N17.9 Acute kidney failure, unspecified (principal); J18.9 Pneumonia, unspecified organism; I48.19 Other persistent atrial fibrillation; J44.0 Chronic obstructive pulmonary disease with (acute) lower respiratory infection; N39.0 Urinary tract infection, site not specified; Z20.822 Contact with and (suspected) exposure to COVID-19; E78.5 Hyperlipidemia, unspecified; I10 Essential (primary) hypertension; Z79.01 Long term (current) use of anticoagulants; Z79.51 Long term (current) use of inhaled steroids; Z79.82 Long term (current) use of aspirin; Z79.899 Other long term (current) drug therapy; Z95.5 Presence of coronary angioplasty implant and graft; Z87.891 Personal history of nicotine dependence; Z98.890 Other specified postprocedural states; Z82.49 Family history of ischemic heart disease and other diseases of the circulatory system; Z82.3 Family history of stroke
CPT/HCPCS: 36415; 71045; 80048; 80053; 81001; 83735; 84443; 85025; 85730; 87502; 87634; 87635; 93005; 93306; 94640; 99285

== ENCOUNTER 2021-04-06 18:30 | Inpatient (IN) | payer MEDICARE, OTHER ==
--- NOTE | 2021-04-06 18:57 | ED ---
General Adult HPI - General Chief complaint: Weakness Stated complaint: weakness Time Seen by Provider: 04/06/21 18:33 Source: patient, EMS, RN notes reviewed Mode of arrival: ambulatory Limitations: no limitations - History of Present Illness Initial comments: Patient is a pleasant 89-year-old male presenting to the emergency Department with concerns regarding generalized weakness. Patient is a poor historian. Patient has no complaints of feels everything is fine. Patient admits he had a couple near falls recently. Patient family reportedly recently tested positive for COVID-19 infection. Patient denies fever. Patient reportedly has decreased appetite however he denies this. - Related Data Home Medications Medication Instructions Recorded Confirmed Albuterol Inhaler [Ventolin Hfa 2 puff INHALATION RT-QID PRN 04/28/20 02/27/21 Inhaler] Aspirin EC [Ecotrin Low Dose] 81 mg PO DAILY 04/28/20 02/27/21 Doxazosin [Cardura] 4 mg PO DAILY 04/28/20 02/27/21 Simvastatin [Zocor] 20 mg PO HS 04/28/20 02/27/21 Budesonide-Formot 160-4.5 Mcg 2 puff INHALATION RT-BID 09/20/20 02/27/21 [Symbicort 160-4.5 Mcg Inhaler] Multivitamins, Thera [Multivitamin 1 tab PO DAILY 02/27/21 02/27/21 (formulary)] Previous Rx's Medication Instructions Recorded Apixaban [Eliquis] 2.5 mg PO BID #60 tab 03/01/21 Cefuroxime Axetil [Ceftin] 500 mg PO BID 4 Days #8 tab 03/02/21 Metoprolol Tartrate [Lopressor] 50 mg PO BID #60 tab 03/02/21 amLODIPine [Norvasc] 5 mg PO DAILY #30 tab 03/02/21 Allergies Allergy/AdvReac Type Severity Reaction Status Date / Time No Known Allergies Allergy Verified 04/06/21 18:42 Review of Systems ROS Statement: Those systems with pertinent positive or pertinent negative responses have been documented in the HPI. ROS Other: All systems not noted in ROS Statement are negative. Constitutional: Denies: fever Eyes: Denies: eye pain ENT: Denies: ear pain Respiratory: Denies: cough Cardiovascular: Denies: chest pain Endocrine: Reports: fatigue Gastrointestinal: Denies: abdominal pain Genitourinary: Denies: dysuria Musculoskeletal: Denies: back pain Skin: Denies: rash Neurological: Reports: as per HPI Past Medical History Past Medical History: No Reported History History of Any Multi-Drug Resistant Organisms: None Reported Past Surgical History: No Surgical Hx Reported Past Anesthesia/Blood Transfusion Reactions: No Reported Reaction Past Psychological History: No Psychological Hx Reported Smoking Status: Former smoker Past Alcohol Use History: Occasional Past Drug Use History: None Reported - Past Family History Son(s) Family Medical History: CVA/TIA, Myocardial Infarction ([place]) Additional Family Medical History / Comment(s): heart cath with stents General Exam Limitations: no limitations General appearance: alert, in no apparent distress Head exam: Present: atraumatic, normocephalic Eye exam: Present: normal appearance, PERRL, EOMI ENT exam: Present: mucous membranes dry Neck exam: Present: normal inspection. Absent: tenderness Respiratory exam: Present: normal lung sounds bilaterally Cardiovascular Exam: Present: regular rate, normal rhythm GI/Abdominal exam: Present: soft. Absent: tenderness Extremities exam: Present: normal inspection, full ROM. Absent: tenderness Neurological exam: Present: alert. Absent: motor sensory deficit Expanded Patient oriented to: Present: person, place. Absent: time Motor strength exam: RUE: 5, LUE: 5, RLE: 5, LLE: 5 Psychiatric exam: Present: normal affect, normal mood Skin exam: Present: normal color Course Vital Signs 04/06/21 18:35 Temperature 97.9 F Pulse Rate 78 Respiratory 18 Rate Blood Pressure 115/62 O2 Sat by Pulse 99 Oximetry EKG Findings - EKG Comments: EKG Findings:: No sinus rhythm rate 88. KS 134. QRS 68. QT 336. QTc 394. Normal axis. Downward QRS and T waves in V5 alone. Medical Decision Making - Medical Decision Making Patient reevaluated and updated. Patient is a candidate for monoclonal antibodies and will receive this. Patient is not being admitted for COVID-19 infection. Patient does have new acute renal failure. Case discussed with Dr. Farrell, who will admit covering for hospital call. Nephrology will be placed on consult. Lomeli catheter placed. - Lab Data Result diagrams: 04/06/21 18:55 04/06/21 18:55 Lab Results 04/06/21 04/06/21 04/06/21 Range/Units 18:55 18:55 18:55 WBC 11.8 H (3.8-10.6) k/uL RBC 3.80 L (4.30-5.90) m/uL Hgb 10.4 L (13.0-17.5) gm/dL Hct 32.9 L (39.0-53.0) % MCV 86.6 (80.0-100.0) fL MCH 27.4 (25.0-35.0) pg MCHC 31.6 (31.0-37.0) g/dL RDW 14.7 (11.5-15.5) % Plt Count 470 H D (150-450) k/uL MPV 7.4 Neutrophils % 82 % Lymphocytes % 12 % Monocytes % 5 % Eosinophils % 0 % Basophils % 0 % Neutrophils # 9.7 H (1.3-7.7) k/uL Lymphocytes # 1.5 (1.0-4.8) k/uL Monocytes # 0.6 (0-1.0) k/uL Eosinophils # 0.0 (0-0.7) k/uL Basophils # 0.0 (0-0.2) k/uL Hypochromasia Slight Sodium 134 L (137-145) mmol/L Potassium 6.2 H* (3.5-5.1) mmol/L Chloride 104 (98-107) mmol/L Carbon Dioxide 12 L (22-30) mmol/L Anion Gap 18 mmol/L BUN 197 H* (9-20) mg/dL Creatinine 9.41 H* (0.66-1.25) mg/dL Est GFR (CKD-EPI)AfAm 5 (>60 ml/min/1.73 sqM) Est GFR (CKD-EPI)NonAf 4 (>60 ml/min/1.73 sqM) Glucose 142 H (74-99) mg/dL Plasma Lactic Acid Andres 1.0 (0.7-2.0) mmol/L Calcium 8.9 (8.4-10.2) mg/dL Magnesium 2.4 H (1.6-2.3) mg/dL Total Bilirubin 0.4 (0.2-1.3) mg/dL AST 35 (17-59) U/L ALT 42 (4-49) U/L Alkaline Phosphatase 69 (38-126) U/L Troponin I (0.000-0.034) ng/mL Total Protein 7.2 (6.3-8.2) g/dL Albumin 3.3 L (3.5-5.0) g/dL Coronavirus (PCR) (Not Detectd) 04/06/21 04/06/21 Range/Units 18:55 18:55 WBC (3.8-10.6) k/uL RBC (4.30-5.90) m/uL Hgb (13.0-17.5) gm/dL Hct (39.0-53.0) % MCV (80.0-100.0) fL MCH (25.0-35.0) pg MCHC (31.0-37.0) g/dL RDW (11.5-15.5) % Plt Count (150-450) k/uL MPV Neutrophils % % Lymphocytes % % Monocytes % % Eosinophils % % Basophils % % Neutrophils # (1.3-7.7) k/uL Lymphocytes # (1.0-4.8) k/uL Monocytes # (0-1.0) k/uL Eosinophils # (0-0.7) k/uL Basophils # (0-0.2) k/uL Hypochromasia Sodium (137-145) mmol/L Potassium (3.5-5.1) mmol/L Chloride (98-107) mmol/L Carbon Dioxide (22-30) mmol/L Anion Gap mmol/L BUN (9-20) mg/dL Creatinine (0.66-1.25) mg/dL Est GFR (CKD-EPI)AfAm (>60 ml/min/1.73 sqM) Est GFR (CKD-EPI)NonAf (>60 ml/min/1.73 sqM) Glucose (74-99) mg/dL Plasma Lactic Acid Andres (0.7-2.0) mmol/L Calcium (8.4-10.2) mg/dL Magnesium (1.6-2.3) mg/dL Total Bilirubin (0.2-1.3) mg/dL AST (17-59) U/L ALT (4-49) U/L Alkaline Phosphatase (38-126) U/L Troponin I 0.061 H* (0.000-0.034) ng/mL Total Protein (6.3-8.2) g/dL Albumin (3.5-5.0) g/dL Coronavirus (PCR) Detected A (Not Detectd) - Radiology Data Radiology results: image reviewed (Chest x-ray shows right pleural based scarring, unchanged. No acute process.) Disposition Clinical Impression: Acute renal failure (ARF), COVID Disposition: ADMITTED IP TO THIS [facility] Condition: Serious Is patient prescribed a controlled substance at d/c from ED?: No Referrals: Reshma Wallis MD [Primary Care Provider] - 1-2 days Decision Time: 19:46
[2021-04-06 19:17] LABS: Basophils % (A) 0 %; Eosinophils % (A) 0 %; HCT 32.9 % (39.0-53.0); HGB 10.4 gm/dL (13.0-17.5); Hypochromasia Slight; Lymphocytes # (A) 1.5 k/uL (1.0-4.8); Lymphocytes % (A) 12 %; MCH 27.4 pg (25.0-35.0); MCHC 31.6 g/dL (31.0-37.0); MCV 86.6 fL (80.0-100.0); Mean Platelet Volume 7.4; Monocytes # (A) 0.6 k/uL (0-1.0); Monocytes % (A) 5 %; Neutrophils # (A) 9.7 k/uL (1.3-7.7); Neutrophils % (A) 82 %; RDW 14.7 % (11.5-15.5); WBC 11.8 k/uL (3.8-10.6)
[2021-04-06 19:20] LABS: Platelet Count 470 k/uL (150-450)
--- NOTE | 2021-04-06 19:20 | XR ---
EXAMINATION TYPE: XR chest 2V DATE OF EXAM: 04/06/2021 COMPARISON: 03/15/2021 HISTORY: Weakness TECHNIQUE: 2 views FINDINGS: There is some blunting of the right costophrenic angle. There is no heart failure. Heart si ze is normal. Thoracic aorta is atheromatous. IMPRESSION: There is pleural diaphragmatic scarring right lung base without change. No heart failure. Normal heart.
[2021-04-06 19:25] LABS: Albumin 3.3 g/dL (3.5-5.0); Calcium 8.9 mg/dL (8.4-10.2); Magnesium 2.4 mg/dL (1.6-2.3); Total Bilirubin 0.4 mg/dL (0.2-1.3); Total Protein 7.2 g/dL (6.3-8.2)
[2021-04-06 19:38] LABS: Potassium 6.2 mmol/L (3.5-5.1)
[2021-04-06] MEDS ORDERED: NALOXONE 0.4 MG/ML 1 ML VIAL IV PRN (19:56)
[2021-04-06 20:17] LABS: INR 1.1 (<1.2); Partial Thromboplastin Time 27.6 sec (22.0-30.0); Prothrombin Time 11.7 sec (9.0-12.0)
--- NOTE | 2021-04-06 20:20 | CT ---
EXAMINATION TYPE: CT brain wo con DATE OF EXAM: 04/06/2021 COMPARISON: None HISTORY: Weakness CT DLP: 1188.4 mGycm Automated exposure control for dose reduction was used. There is cerebral cortical atrophy. There is no mass effect or midline shift. There is no sign of int racranial hemorrhage. Calvarium is intact. Skull base is intact IMPRESSION: Cerebral atrophy. No acute intracranial abnormality.
[2021-04-06] MEDS ORDERED: SODIUM CHLORIDE 0.9% 50 ML IVPB ONE (21:00)
[2021-04-06] MEDS ORDERED: CASIRIVIMAB (REGN10933) (EUA) 600 MG, IMDEVIMAB (REGN10987) (EUA) 600 MG in SODIUM CHLO... IVPB ONE (21:00)
[2021-04-06] MEDS: ASCORBIC ACID 500 MG TAB PO SCH (21:26)
[2021-04-07] MEDS ORDERED: ALBUTEROL NEBULIZED 2.5 MG/3 ML INHALATION PRN (02:38)
[2021-04-07] MEDS ORDERED: DEXTROSE 50% SYRINGE 50 ML IVP STA ×2 (02:48→08:52)
--- NOTE | 2021-04-07 02:58 | P.HPIM ---
History of Present Illness H&P Date: 04/06/21 Chief Complaint: generalized weakness 89 year old male , unable to obtain past medical history , but from medication list, afib and BPH is suspected, along with hypertension patient unable to provide any meaningful history , patient denies any complaints and reports that he is feeling fine. He was brought in by family , who have members with cOVID , and noticed that the patient was not feeling well, and having increased weakness and poor PO intake , no further history available at this time, family not available at this time. blood work showed MINI , positive COVID , patient not requiring supplemental oxygen. barker cath inserted due to distended bladder. patient has history of BPH Brain CT no acute pathology Review of Systems ROS unobtainable: due to mental status Past Medical History Past Medical History: No Reported History History of Any Multi-Drug Resistant Organisms: None Reported Past Surgical History: No Surgical Hx Reported Past Anesthesia/Blood Transfusion Reactions: No Reported Reaction Past Psychological History: No Psychological Hx Reported Smoking Status: Former smoker Past Alcohol Use History: Occasional Past Drug Use History: None Reported - Past Family History Son(s) Family Medical History: CVA/TIA, Myocardial Infarction ([place]) Additional Family Medical History / Comment(s): heart cath with stents Medications and Allergies Home Medications Medication Instructions Recorded Confirmed Type Albuterol Inhaler [Ventolin Hfa 2 puff INHALATION RT-QID PRN 04/28/20 04/06/21 History Inhaler] Aspirin EC [Ecotrin Low Dose] 81 mg PO DAILY 04/28/20 04/06/21 History Doxazosin [Cardura] 4 mg PO DAILY 04/28/20 04/06/21 History Simvastatin [Zocor] 20 mg PO HS 04/28/20 04/06/21 History Budesonide-Formot 160-4.5 Mcg 2 puff INHALATION RT-BID 09/20/20 04/06/21 History [Symbicort 160-4.5 Mcg Inhaler] Multivitamins, Thera [Multivitamin 1 tab PO DAILY 02/27/21 04/06/21 History (formulary)] Apixaban [Eliquis] 2.5 mg PO BID #60 tab 03/01/21 04/06/21 Rx Metoprolol Tartrate [Lopressor] 50 mg PO BID #60 tab 03/02/21 04/06/21 Rx amLODIPine [Norvasc] 5 mg PO DAILY #30 tab 03/02/21 04/06/21 Rx Allergies Allergy/AdvReac Type Severity Reaction Status Date / Time No Known Allergies Allergy Verified 04/06/21 20:12 Physical Exam Vitals: Vital Signs Temp Pulse Resp BP Pulse Ox 04/06/21 18:35 97.9 F 78 18 115/62 99 Intake and Output 04/06/21 04/06/21 04/06/21 06:59 14:59 22:59 Output Total 900 Balance -900 Output: Urine 900 Uretheral (Barker) 900 Other: Weight 52.163 kg Constitutional: No acute distress, conversant, pleasant, confused Eyes: Anicteric sclerae, moist conjunctiva, Pupils equal round reactive to light ENMT: NC/AT Oropharynx clear, no erythema, or exudates Neck: Supple, no masses, or JVD No carotid bruits No thyromegaly Lungs: Clear to auscultation Clear to percussion Normal respiratory effort, no accessory muscle use Cardiovascular: Heart regular in rate and rhythm, No murmurs, gallops, or rubs No peripheral edema Abdominal: Soft, barker cath in place, pink urine Nontender, no guarding, rebound or rigidity Abdomen moving with respiration Normoactive bowel sounds No hepatomegaly, No splenomegaly No palpable mass No abdominal wall hernia noted Skin: Normal temperature, tone, texture, turgor No induration No subcutaneous nodules No rash, lesions No ulcers Extremities: No digital cyanosis No clubbing Pedal pulses intact and symmetrical Radial pulses intact and symmetrical No calf tenderness Psychiatric: Alert and oriented to person, place Appropriate affect Neuro Muscles Strength 3-4/5 in all 4 extremities Sensation to light touch grossly present throughout Cranial nerves II-XII grossly intact Lymphatics: no palpable cervical or supraclavicular , or inguinal lymph nodes Results CBC & Chem 7: 04/06/21 18:55 04/06/21 18:55 Labs: Abnormal Lab Results - Last 24 Hours (Table) 04/06/21 04/06/21 04/06/21 Range/Units 18:55 18:55 18:55 WBC 11.8 H (3.8-10.6) k/uL RBC 3.80 L (4.30-5.90) m/uL Hgb 10.4 L (13.0-17.5) gm/dL Hct 32.9 L (39.0-53.0) % Plt Count 470 H D (150-450) k/uL Neutrophils # 9.7 H (1.3-7.7) k/uL Sodium 134 L (137-145) mmol/L Potassium 6.2 H* (3.5-5.1) mmol/L Carbon Dioxide 12 L (22-30) mmol/L BUN 197 H* (9-20) mg/dL Creatinine 9.41 H* (0.66-1.25) mg/dL Glucose 142 H (74-99) mg/dL Magnesium 2.4 H (1.6-2.3) mg/dL Troponin I 0.061 H* (0.000-0.034) ng/mL Albumin 3.3 L (3.5-5.0) g/dL Coronavirus (PCR) (Not Detectd) 04/06/21 Range/Units 18:55 WBC (3.8-10.6) k/uL RBC (4.30-5.90) m/uL Hgb (13.0-17.5) gm/dL Hct (39.0-53.0) % Plt Count (150-450) k/uL Neutrophils # (1.3-7.7) k/uL Sodium (137-145) mmol/L Potassium (3.5-5.1) mmol/L Carbon Dioxide (22-30) mmol/L BUN (9-20) mg/dL Creatinine (0.66-1.25) mg/dL Glucose (74-99) mg/dL Magnesium (1.6-2.3) mg/dL Troponin I (0.000-0.034) ng/mL Albumin (3.5-5.0) g/dL Coronavirus (PCR) Detected A (Not Detectd) Assessment and Plan Assessment: MINI on CKD possibly post obstructive uropathy secondary to BPH hyperkalemia , EKG normal sinus rhythm COVID chronic anemia elevated trops plan check renal US for hydronephrosis barker cath inserted , monitor urine output nephrology consult monitor electrolytes, potassium lowering cocktail (insulin IV and D50) monoclonal antibody for covid , no oxygen requirement at this time continue with eliquis for afib trend troponins supportive care IVF hydration with normal saline monitor hemoglobin pulmonary consult for covid , unknown vaccination status CXR no acute changes CT brain no acute pathology check d dimer, CPR, LDH ferritin , procalcitonin for prognostic evaluation of COVID chronic conditions no available history , but from assessment and med list P. afib on eliquis and lopressor hypertension , continue amlodipine hyperlipidemia continue statin dementia , advanced age PT eval fall risk full code DVT PPX on eliquis anticipated length of stay > 2 midnights
[2021-04-07] MEDS ORDERED: INSULIN REGULAR 100 UNIT/ML VIAL (IV) IV ONE ×2 (03:00→08:52)
[2021-04-07] MEDS: SODIUM CHLORIDE 0.9% 1,000 ML IV SCH ×3 (03:45→13:30)
[2021-04-07] MEDS ORDERED: CALCIUM GLUCONATE 1 GM in SODIUM CHLORIDE 0.9% 100 ML IVPB ONE ×2 (04:15→09:00)
[2021-04-07] MEDS: CHOLECALCIFEROL 125 MCG (5000 IU) TABLET PO SCH ×2 (04:55→13:34)
[2021-04-07 06:54] LABS: HCT 28.9 % (39.0-53.0); Hypochromasia Marked; MCH 26.4 pg (25.0-35.0); MCHC 29.8 g/dL (31.0-37.0); MCV 88.5 fL (80.0-100.0); Mean Platelet Volume 8.6; Platelet Count 433 k/uL (150-450); RBC 3.27 m/uL (4.30-5.90); RDW 14.4 % (11.5-15.5); WBC 16.3 k/uL (3.8-10.6)
[2021-04-07 07:14] LABS: HGB 8.6 gm/dL (13.0-17.5)
[2021-04-07] MEDS: SYMBICORT 160-4.5 MCG INHALER INHALATION SCH (07:18)
[2021-04-07 08:08] LABS: C Reactive Protein 7.3 mg/dL (<1.0); LDH 346 U/L (313-618)
[2021-04-07 08:30] LABS: Appearance,Urine Turbid (Clear); Bacteria,Urine Rare /hpf; Bilirubin,Urine Negative (Negative); Blood,Urine Large (Negative); Color,Urine Yellow; Glucose,Urine (UA) Negative (Negative); Ketones,Urine Negative (Negative); Leukocyte Esterase,Urine Large (Negative); Nitrite,Urine Negative (Negative); Protein,Urine 2+ (Negative); RBC,Urine 161 /hpf (0-5); Specific Gravity,Urine 1.016 (1.001-1.035); Urobilinogen,Urine <2.0 mg/dL (<2.0); WBC,Urine >182 /hpf (0-5)
[2021-04-07] MEDS ORDERED: SODIUM BICARB 8.4% 50 ML SYR (1 MEQ/ML) IV STA (08:52)
--- NOTE | 2021-04-07 08:55 | P.CNPUL ---
History of Present Illness Consult date: 04/07/21 Requesting physician: Amira Moran Reason for consult: dyspnea, COPD, hypoxemia, other Chief complaint: Weakness and poor appetite. History of present illness: Pulmonary consult dated 04/07/2021. 89-year-old male who sees my partner as a primary. The patient has a history of hypertension, chronic hypoxemic respiratory failure, hyperlipidemia, COPD, and atrial fibrillation. The patient was recently seen in February of last year, for an episode of atrial fibrillation. At that time, the patient's creatinine was 2.39. He comes into the emergency room complaining of profound weakness, and poor appetite, not eating or drinking anything by mouth. The patient's currently on 2 L 20/10. Currently, he is getting saline at 20 mL an hour. He had a brain CT in the ER, that was negative. His chest x-ray was also essentially negative. Laboratory data includes a white count 16.3, hemoglobin 8.6, hematocrit 28.9, and a platelet count 433,000. D-dimer was 1.84. Sodium 134, potassium 6.6, chlorides 104, CO2 12, anion gap 18, E1 197 with a creatinine of 9.41. The troponin was 0.061 0.061 and 0.060. LDH 346. C- reactive protein was 7.3. TSH was normal. The patient's IV was increased to 150 mL an hour. Review of Systems REVIEW OF SYSTEMS: CONSTITUTIONAL: Weakness and fatigue NEUROLOGIC: [ Negative.] HEENT: [ Negative.] CARDIAC: [Negative.] PULMONARY: Chronic shortness of breath, at baseline GI: Decreased oral intake, with dehydration. : [Negative.] RHEUMATOLOGIC: [ Negative.] IMMUNOLOGIC: [ Negative.] ENDOCRINE: [Negative. ] DERMATOLOGIC: [Negative.] Past Medical History Past Medical History: No Reported History History of Any Multi-Drug Resistant Organisms: None Reported Past Surgical History: No Surgical Hx Reported Past Anesthesia/Blood Transfusion Reactions: No Reported Reaction Past Psychological History: No Psychological Hx Reported Smoking Status: Former smoker Past Alcohol Use History: Occasional Past Drug Use History: None Reported - Past Family History Son(s) Family Medical History: CVA/TIA, Myocardial Infarction ([place]) Additional Family Medical History / Comment(s): heart cath with stents Medications and Allergies Home Medications Medication Instructions Recorded Confirmed Type Albuterol Inhaler [Ventolin Hfa 2 puff INHALATION RT-QID PRN 04/28/20 04/06/21 History Inhaler] Aspirin EC [Ecotrin Low Dose] 81 mg PO DAILY 04/28/20 04/06/21 History Doxazosin [Cardura] 4 mg PO DAILY 04/28/20 04/06/21 History Simvastatin [Zocor] 20 mg PO HS 04/28/20 04/06/21 History Budesonide-Formot 160-4.5 Mcg 2 puff INHALATION RT-BID 09/20/20 04/06/21 History [Symbicort 160-4.5 Mcg Inhaler] Multivitamins, Thera [Multivitamin 1 tab PO DAILY 02/27/21 04/06/21 History (formulary)] Apixaban [Eliquis] 2.5 mg PO BID #60 tab 03/01/21 04/06/21 Rx Metoprolol Tartrate [Lopressor] 50 mg PO BID #60 tab 03/02/21 04/06/21 Rx amLODIPine [Norvasc] 5 mg PO DAILY #30 tab 03/02/21 04/06/21 Rx Allergies Allergy/AdvReac Type Severity Reaction Status Date / Time No Known Allergies Allergy Verified 04/06/21 20:12 Physical Exam Osteopathic Statement: *. No significant issues noted on an osteopathic structural exam other than those noted in the History and Physical/Consult. Vitals: Vital Signs Temp Pulse Resp BP Pulse Ox 04/07/21 07:28 79 16 67/56 98 04/07/21 06:02 7.9 F L 78 18 86/72 95 04/07/21 03:35 98.6 F 79 18 90/48 95 04/07/21 00:03 98.0 F 85 16 101/50 97 04/06/21 22:43 98.7 F 86 16 156/66 96 04/06/21 18:35 97.9 F 78 18 115/62 99 Intake and Output 04/06/21 04/07/21 04/07/21 22:59 06:59 14:59 Output Total 900 Balance -900 Output: Urine 900 Uretheral (Lomeli) 900 Other: Weight 52.163 kg No acute distress, oriented 3. The patient's very lethargic. He is on 2 L nasal O2. HEENT examination is grossly unremarkable. Mucous membranes are dry. Neck supple. Full range of motion. No adenopathy thyromegaly or neck vein distention. Cardiovascular examination reveals regular rhythm rate. S1-S2 normal. No S3 or S4. No discernible murmur noted. Heart sounds are distant. Heart rate 79 bpm. Blood pressures only 67/56 with mean of 59. Lungs reveal scattered bilateral rhonchi. Breath sounds equal but diminished throughout. No wheezes or crackles. Abdomen soft, with diminished bowel sounds. No masses or tenderness. Extremities are intact. No cyanosis clubbing or edema. Skin is without rash or lesion. Neurologic examination is brief but nonfocal. Results - Laboratory Findings CBC and BMP: 04/07/21 06:29 04/07/21 06:29 PT/INR, D-dimer PT 11.7 sec (9.0-12.0) 04/06/21 18:55 INR 1.1 (<1.2) 04/06/21 18:55 D-Dimer 1.84 mg/L FEU (<0.60) H 04/07/21 06:29 Abnormal lab findings: Abnormal Labs 04/06/21 04/06/21 04/06/21 18:55 18:55 18:55 WBC 11.8 H RBC 3.80 L Hgb 10.4 L Hct 32.9 L MCHC Plt Count 470 H D Neutrophils # 9.7 H D-Dimer Sodium 134 L Potassium 6.2 H* Carbon Dioxide 12 L BUN 197 H* Creatinine 9.41 H* Glucose 142 H Magnesium 2.4 H Troponin I 0.061 H* C-Reactive Protein Albumin 3.3 L Urine Protein Urine Blood Ur Leukocyte Esterase Urine RBC Urine WBC Urine WBC Clumps Urine Bacteria Coronavirus (PCR) 04/06/21 04/07/21 04/07/21 18:55 03:05 03:05 WBC RBC Hgb Hct MCHC Plt Count Neutrophils # D-Dimer Sodium Potassium 6.8 H* Carbon Dioxide BUN Creatinine Glucose Magnesium Troponin I 0.061 H* C-Reactive Protein Albumin Urine Protein Urine Blood Ur Leukocyte Esterase Urine RBC Urine WBC Urine WBC Clumps Urine Bacteria Coronavirus (PCR) Detected A 04/07/21 04/07/21 04/07/21 06:29 06:29 06:29 WBC 16.3 H RBC 3.27 L Hgb 8.6 L D Hct 28.9 L MCHC 29.8 L Plt Count Neutrophils # D-Dimer Sodium Potassium Carbon Dioxide BUN Creatinine Glucose Magnesium Troponin I 0.060 H* C-Reactive Protein 7.3 H Albumin Urine Protein Urine Blood Ur Leukocyte Esterase Urine RBC Urine WBC Urine WBC Clumps Urine Bacteria Coronavirus (PCR) 04/07/21 04/07/21 04/07/21 06:29 06:29 06:55 WBC RBC Hgb Hct MCHC Plt Count Neutrophils # D-Dimer 1.84 H Sodium Potassium 6.6 H* Carbon Dioxide BUN Creatinine Glucose Magnesium Troponin I C-Reactive Protein Albumin Urine Protein 2+ H Urine Blood Large H Ur Leukocyte Esterase Large H Urine RBC 161 H Urine WBC >182 H Urine WBC Clumps Many H Urine Bacteria Rare H Coronavirus (PCR) - Diagnostic Findings Chest x-ray: image reviewed Assessment and Plan Assessment: Acute on chronic renal failure, with a previous creatinine of 2.39, in February 2021, which is now up to 9.41. Anion gap metabolic acidosis, secondary to renal failure. Hyperkalemia, secondary to renal failure. History of atrial fibrillation. History of hyperlipidemia. History of hypertension. History of severe COPD with chronic hypoxemic respiratory failure. Plan: Plan dated 04/07/2021. The patient is seen in the emergency room. He is profoundly weak and lethargic. I did ask the nurse to increase his fluids up to 1 50 mL an hour. A renal ultrasound was ordered. The patient should be seen by nephrology. The patient may require emergent hemodialysis given his renal fire and hyperkalemia, as well as his anion gap metabolic acidosis. We will continue to follow make recommendations where appropriate. We'll get him back on Symbicort and updrafts. Time with Patient: Greater than 30
[2021-04-07] MEDS ORDERED: ASPIRIN 81 MG PO SCH (09:00)
[2021-04-07] MEDS ORDERED: DOXAZOSIN 4 MG TAB PO SCH (09:00)
[2021-04-07] MEDS ORDERED: amLODIPine 5 MG TAB PO SCH (09:00)
[2021-04-07] MEDS ORDERED: SODIUM ZIRCONIUM CYCLOSILICATE 10 GM PACKET PO ONE (09:00)
--- NOTE | 2021-04-07 09:02 | P.NPCON ---
History of Present Illness - Reason for Consult acute renal failure, hyperkalemia - History of Present Illness Reason for consultation: Acute kidney injury and hyperkalemia History of present illness: Patient is a 89-year-old male seen in renal consultation for acute kidney injury and hyperkalemia. Patient was seen and examined in the emergency room. Patient presented to the hospital with generalized weakness. Patient denies any active complaints. However he is not a reliable historian. He did test positive for COVID-19 this admission. He's currently on 2 L nasal cannula. Patient's blood pressure has been quite low and most recent reading was 67/56. Patient's potassium level was 6.2 on admission and on repeat was 6.8. This was medically treated with IV calcium, IV insulin with D50 and is now 6.6. Patient has a Lomeli catheter and is oliguric. Creatinine on admission was 9.41. Patient's creatinine in February 2021 was in the range of 2.1-2.5. Chest x-ray shows no evidence of fluid overload. Patient does have history of hypertension. No history of diabetes. I don't see any nonsteroidals and his home medication list. Vital signs stable. General: On nasal cannula. HEENT: Head exam is unremarkable. LUNGS: Breath sounds decreased. HEART: Rate and Rhythm are regular. ABDOMEN: Soft, no distention. EXTREMITITES: No edema. Past Medical History Past Medical History: No Reported History History of Any Multi-Drug Resistant Organisms: None Reported Past Surgical History: No Surgical Hx Reported Past Anesthesia/Blood Transfusion Reactions: No Reported Reaction Past Psychological History: No Psychological Hx Reported Smoking Status: Former smoker Past Alcohol Use History: Occasional Past Drug Use History: None Reported - Past Family History Son(s) Family Medical History: CVA/TIA, Myocardial Infarction ([place]) Additional Family Medical History / Comment(s): heart cath with stents Medications and Allergies Home Medications Medication Instructions Recorded Confirmed Type Albuterol Inhaler [Ventolin Hfa 2 puff INHALATION RT-QID PRN 04/28/20 04/06/21 History Inhaler] Aspirin EC [Ecotrin Low Dose] 81 mg PO DAILY 04/28/20 04/06/21 History Doxazosin [Cardura] 4 mg PO DAILY 04/28/20 04/06/21 History Simvastatin [Zocor] 20 mg PO HS 04/28/20 04/06/21 History Budesonide-Formot 160-4.5 Mcg 2 puff INHALATION RT-BID 09/20/20 04/06/21 History [Symbicort 160-4.5 Mcg Inhaler] Multivitamins, Thera [Multivitamin 1 tab PO DAILY 02/27/21 04/06/21 History (formulary)] Apixaban [Eliquis] 2.5 mg PO BID #60 tab 03/01/21 04/06/21 Rx Metoprolol Tartrate [Lopressor] 50 mg PO BID #60 tab 03/02/21 04/06/21 Rx amLODIPine [Norvasc] 5 mg PO DAILY #30 tab 03/02/21 04/06/21 Rx Allergies Allergy/AdvReac Type Severity Reaction Status Date / Time No Known Allergies Allergy Verified 04/06/21 20:12 Physical Exam Vitals: Vital Signs Temp Pulse Resp BP Pulse Ox 04/07/21 07:28 79 16 67/56 98 04/07/21 06:02 7.9 F L 78 18 86/72 95 04/07/21 03:35 98.6 F 79 18 90/48 95 04/07/21 00:03 98.0 F 85 16 101/50 97 04/06/21 22:43 98.7 F 86 16 156/66 96 04/06/21 18:35 97.9 F 78 18 115/62 99 Intake and Output 04/06/21 04/07/21 04/07/21 22:59 06:59 14:59 Output Total 900 Balance -900 Output: Urine 900 Uretheral (Lomeli) 900 Other: Weight 52.163 kg Results - Lab Results Most recent lab results Calcium 8.9 mg/dL (8.4-10.2) 04/06/21 18:55 Magnesium 2.4 mg/dL (1.6-2.3) H 04/06/21 18:55 04/07/21 06:29 04/07/21 06:29 Assessment and Plan Plan: Assessment: 1. Acute kidney injury secondary to ATN secondary to hypotension/severe sepsis. Creatinine 9.41 on admission. 2. Hyperkalemia secondary to acute kidney injury and metabolic acidosis. 3. Metabolic acidosis secondary to acute kidney injury. 4. Rule out chronic kidney disease. Patient's creatinine in February 2021 was in the range of 2.1-2.5. In March 2020, it was 1.23. 5. Acute hypoxia respiratory failure. 6. COVID-19 infection. Plan: I will change IV fluids to sodium bicarbonate drip to be run at 150 mL an hour. 1 g IV calcium gluconate, 10 units IV regular insulin with amp of D50, 2 A of sodium bicarbonate IV push now. 10 g lokelma once now. Consult vascular surgery for dialysis catheter placement. Plan for first treatment of hemodialysis today and second treatment tomorrow. Maintain Lomeli catheter. Strict is and os. Follow-up renal ultrasound. 1 L normal saline bolus now. Patient will be going to the ICU. May require vasopressor support. Repeat BMP at noon. Thank you for the consultation. I will continue to follow the patient with you during his hospital stay.
[2021-04-07] MEDS: METOPROLOL TARTRATE 50 MG TAB PO SCH ×2 (09:27→21:14)
[2021-04-07] MEDS: APIXABAN 2.5 MG TABLET PO SCH ×2 (09:29→23:40)
[2021-04-07 09:38] LABS: Glucose,Whole Blood 109 mg/dL (75-99)
--- NOTE | 2021-04-07 09:40 | US ---
EXAMINATION TYPE: US renals and bladder DATE OF EXAM: 04/07/2021 COMPARISON: US 2010 CLINICAL HISTORY: obstructive uropathy, ?hydronephrosis. EXAM MEASUREMENTS: Right Kidney: 10.6 x 5.7 x 5.4 cm Left Kidney: 8.9 x 3.6 x 3.7 cm Right Kidney: hydronephrosis Left Kidney: hydronephrosis Bladder: 6.2 x 7.4 x 7.0cm mass like area seen, debris seen barker catheter balloon seen Mild to moderate left-sided hydronephrosis.. Moderately distended bladder despite Barker catheter with surrounding tissue could reflect markedly enlarged prostate or intraluminal mass. Correlate clinical ly. Severe right-sided hydronephrosis. IMPRESSION: Severe right-sided hydronephrosis. Mild to moderate left-sided hydronephrosis. Distended bladder despite Barker catheter with bulging prostate or intraluminal mass. Clinical correlation and follow-up is advised.
[2021-04-07] MEDS: DEXTROSE 5% IN WATER 1,000 ML with SODIUM BICARB (1 MEQ/ML) 150 ML IV SCH ×3 (10:04→18:52)
--- NOTE | 2021-04-07 12:20 | P.GSCN ---
History of Present Illness History of present illness: 89-year-old gentleman, patient came to the ER with high potassium and high creatinine I was consulted on the patient and LS catheter. Patient had ultrasound of the abdomen and right ureter is we'll use Siegel grade 2 hydronephrosis patient has a Lomeli catheter. Patient seen in the emergency room neck is supple no bruit appreciated Chest have few crackles the lung bases first and second sound present Abdomen soft nontender patient has a Lomeli catheter Vascular femorals are palpable bilateral Plan is placement of a dialysis catheter risk and complication discussed Past Medical History Past Medical History: No Reported History History of Any Multi-Drug Resistant Organisms: None Reported Past Surgical History: No Surgical Hx Reported Past Anesthesia/Blood Transfusion Reactions: No Reported Reaction Past Psychological History: No Psychological Hx Reported Smoking Status: Former smoker Past Alcohol Use History: Occasional Past Drug Use History: None Reported - Past Family History Son(s) Family Medical History: CVA/TIA, Myocardial Infarction ([place]) Additional Family Medical History / Comment(s): heart cath with stents Medications and Allergies Home Medications Medication Instructions Recorded Confirmed Type Albuterol Inhaler [Ventolin Hfa 2 puff INHALATION RT-QID PRN 04/28/20 04/06/21 History Inhaler] Aspirin EC [Ecotrin Low Dose] 81 mg PO DAILY 04/28/20 04/06/21 History Doxazosin [Cardura] 4 mg PO DAILY 04/28/20 04/06/21 History Simvastatin [Zocor] 20 mg PO HS 04/28/20 04/06/21 History Budesonide-Formot 160-4.5 Mcg 2 puff INHALATION RT-BID 09/20/20 04/06/21 History [Symbicort 160-4.5 Mcg Inhaler] Multivitamins, Thera [Multivitamin 1 tab PO DAILY 02/27/21 04/06/21 History (formulary)] Apixaban [Eliquis] 2.5 mg PO BID #60 tab 03/01/21 04/06/21 Rx Metoprolol Tartrate [Lopressor] 50 mg PO BID #60 tab 03/02/21 04/06/21 Rx amLODIPine [Norvasc] 5 mg PO DAILY #30 tab 03/02/21 04/06/21 Rx Allergies Allergy/AdvReac Type Severity Reaction Status Date / Time No Known Allergies Allergy Verified 04/06/21 20:12 Surgical - Exam Vital Signs Temp Pulse Resp BP Pulse Ox 97.9 F 78 18 115/62 99 04/06/21 18:35 04/06/21 18:35 04/06/21 18:35 04/06/21 18:35 04/06/21 18:35 Results - Labs 04/07/21 06:29 04/07/21 06:29 Abnormal Lab Results - Last 24 Hours (Table) 04/06/21 04/06/21 04/06/21 Range/Units 18:55 18:55 18:55 WBC 11.8 H (3.8-10.6) k/uL RBC 3.80 L (4.30-5.90) m/uL Hgb 10.4 L (13.0-17.5) gm/dL Hct 32.9 L (39.0-53.0) % MCHC (31.0-37.0) g/dL Plt Count 470 H D (150-450) k/uL Neutrophils # 9.7 H (1.3-7.7) k/uL D-Dimer (<0.60) mg/L FEU Sodium 134 L (137-145) mmol/L Potassium 6.2 H* (3.5-5.1) mmol/L Carbon Dioxide 12 L (22-30) mmol/L BUN 197 H* (9-20) mg/dL Creatinine 9.41 H* (0.66-1.25) mg/dL Glucose 142 H (74-99) mg/dL POC Glucose (mg/dL) (75-99) mg/dL Magnesium 2.4 H (1.6-2.3) mg/dL Troponin I 0.061 H* (0.000-0.034) ng/mL C-Reactive Protein (<1.0) mg/dL Albumin 3.3 L (3.5-5.0) g/dL Procalcitonin (0.02-0.09) ng/mL Urine Protein (Negative) Urine Blood (Negative) Ur Leukocyte Esterase (Negative) Urine RBC (0-5) /hpf Urine WBC (0-5) /hpf Urine WBC Clumps (None) /hpf Urine Bacteria (None) /hpf Coronavirus (PCR) (Not Detectd) 04/06/21 04/07/21 04/07/21 Range/Units 18:55 03:05 03:05 WBC (3.8-10.6) k/uL RBC (4.30-5.90) m/uL Hgb (13.0-17.5) gm/dL Hct (39.0-53.0) % MCHC (31.0-37.0) g/dL Plt Count (150-450) k/uL Neutrophils # (1.3-7.7) k/uL D-Dimer (<0.60) mg/L FEU Sodium (137-145) mmol/L Potassium 6.8 H* (3.5-5.1) mmol/L Carbon Dioxide (22-30) mmol/L BUN (9-20) mg/dL Creatinine (0.66-1.25) mg/dL Glucose (74-99) mg/dL POC Glucose (mg/dL) (75-99) mg/dL Magnesium (1.6-2.3) mg/dL Troponin I 0.061 H* (0.000-0.034) ng/mL C-Reactive Protein (<1.0) mg/dL Albumin (3.5-5.0) g/dL Procalcitonin (0.02-0.09) ng/mL Urine Protein (Negative) Urine Blood (Negative) Ur Leukocyte Esterase (Negative) Urine RBC (0-5) /hpf Urine WBC (0-5) /hpf Urine WBC Clumps (None) /hpf Urine Bacteria (None) /hpf Coronavirus (PCR) Detected A (Not Detectd) 04/07/21 04/07/21 04/07/21 Range/Units 06:29 06:29 06:29 WBC 16.3 H (3.8-10.6) k/uL RBC 3.27 L (4.30-5.90) m/uL Hgb 8.6 L D (13.0-17.5) gm/dL Hct 28.9 L (39.0-53.0) % MCHC 29.8 L (31.0-37.0) g/dL Plt Count (150-450) k/uL Neutrophils # (1.3-7.7) k/uL D-Dimer (<0.60) mg/L FEU Sodium (137-145) mmol/L Potassium (3.5-5.1) mmol/L Carbon Dioxide (22-30) mmol/L BUN (9-20) mg/dL Creatinine (0.66-1.25) mg/dL Glucose (74-99) mg/dL POC Glucose (mg/dL) (75-99) mg/dL Magnesium (1.6-2.3) mg/dL Troponin I 0.060 H* (0.000-0.034) ng/mL C-Reactive Protein 7.3 H (<1.0) mg/dL Albumin (3.5-5.0) g/dL Procalcitonin (0.02-0.09) ng/mL Urine Protein (Negative) Urine Blood (Negative) Ur Leukocyte Esterase (Negative) Urine RBC (0-5) /hpf Urine WBC (0-5) /hpf Urine WBC Clumps (None) /hpf Urine Bacteria (None) /hpf Coronavirus (PCR) (Not Detectd) 04/07/21 04/07/21 04/07/21 Range/Units 06:29 06:29 06:29 WBC (3.8-10.6) k/uL RBC (4.30-5.90) m/uL Hgb (13.0-17.5) gm/dL Hct (39.0-53.0) % MCHC (31.0-37.0) g/dL Plt Count (150-450) k/uL Neutrophils # (1.3-7.7) k/uL D-Dimer 1.84 H (<0.60) mg/L FEU Sodium (137-145) mmol/L Potassium 6.6 H* (3.5-5.1) mmol/L Carbon Dioxide (22-30) mmol/L BUN (9-20) mg/dL Creatinine (0.66-1.25) mg/dL Glucose (74-99) mg/dL POC Glucose (mg/dL) (75-99) mg/dL Magnesium (1.6-2.3) mg/dL Troponin I (0.000-0.034) ng/mL C-Reactive Protein (<1.0) mg/dL Albumin (3.5-5.0) g/dL Procalcitonin 1.22 H (0.02-0.09) ng/mL Urine Protein (Negative) Urine Blood (Negative) Ur Leukocyte Esterase (Negative) Urine RBC (0-5) /hpf Urine WBC (0-5) /hpf Urine WBC Clumps (None) /hpf Urine Bacteria (None) /hpf Coronavirus (PCR) (Not Detectd) 04/07/21 04/07/21 Range/Units 06:55 09:35 WBC (3.8-10.6) k/uL RBC (4.30-5.90) m/uL Hgb (13.0-17.5) gm/dL Hct (39.0-53.0) % MCHC (31.0-37.0) g/dL Plt Count (150-450) k/uL Neutrophils # (1.3-7.7) k/uL D-Dimer (<0.60) mg/L FEU Sodium (137-145) mmol/L Potassium (3.5-5.1) mmol/L Carbon Dioxide (22-30) mmol/L BUN (9-20) mg/dL Creatinine (0.66-1.25) mg/dL Glucose (74-99) mg/dL POC Glucose (mg/dL) 109 H (75-99) mg/dL Magnesium (1.6-2.3) mg/dL Troponin I (0.000-0.034) ng/mL C-Reactive Protein (<1.0) mg/dL Albumin (3.5-5.0) g/dL Procalcitonin (0.02-0.09) ng/mL Urine Protein 2+ H (Negative) Urine Blood Large H (Negative) Ur Leukocyte Esterase Large H (Negative) Urine RBC 161 H (0-5) /hpf Urine WBC >182 H (0-5) /hpf Urine WBC Clumps Many H (None) /hpf Urine Bacteria Rare H (None) /hpf Coronavirus (PCR) (Not Detectd) Microbiology - Last 24 Hours (Table) 04/07/21 06:55 Urine Culture - Preliminary Urine,Catheterized Diabetes panel 04/06/21 04/07/21 04/07/21 Range/Units 18:55 03:05 06:29 Sodium 134 L (137-145) mmol/L Potassium 6.2 H* 6.8 H* 6.6 H* (3.5-5.1) mmol/L Chloride 104 (98-107) mmol/L Carbon Dioxide 12 L (22-30) mmol/L BUN 197 H* (9-20) mg/dL Creatinine 9.41 H* (0.66-1.25) mg/dL Glucose 142 H (74-99) mg/dL Calcium 8.9 (8.4-10.2) mg/dL AST 35 (17-59) U/L ALT 42 (4-49) U/L Alkaline Phosphatase 69 (38-126) U/L Total Protein 7.2 (6.3-8.2) g/dL Albumin 3.3 L (3.5-5.0) g/dL Thyroid panel 04/06/21 Range/Units 18:55 TSH 1.600 (0.465-4.680) mIU/L Calcium panel 04/06/21 Range/Units 18:55 Calcium 8.9 (8.4-10.2) mg/dL Albumin 3.3 L (3.5-5.0) g/dL Pituitary panel 04/06/21 04/07/21 04/07/21 Range/Units 18:55 03:05 06:29 Sodium 134 L (137-145) mmol/L Potassium 6.2 H* 6.8 H* 6.6 H* (3.5-5.1) mmol/L Chloride 104 (98-107) mmol/L Carbon Dioxide 12 L (22-30) mmol/L BUN 197 H* (9-20) mg/dL Creatinine 9.41 H* (0.66-1.25) mg/dL Glucose 142 H (74-99) mg/dL Calcium 8.9 (8.4-10.2) mg/dL TSH 1.600 (0.465-4.680) mIU/L Adrenal panel 04/06/21 04/07/21 04/07/21 Range/Units 18:55 03:05 06:29 Sodium 134 L (137-145) mmol/L Potassium 6.2 H* 6.8 H* 6.6 H* (3.5-5.1) mmol/L Chloride 104 (98-107) mmol/L Carbon Dioxide 12 L (22-30) mmol/L BUN 197 H* (9-20) mg/dL Creatinine 9.41 H* (0.66-1.25) mg/dL Glucose 142 H (74-99) mg/dL Calcium 8.9 (8.4-10.2) mg/dL Total Bilirubin 0.4 (0.2-1.3) mg/dL AST 35 (17-59) U/L ALT 42 (4-49) U/L Alkaline Phosphatase 69 (38-126) U/L Total Protein 7.2 (6.3-8.2) g/dL Albumin 3.3 L (3.5-5.0) g/dL
--- NOTE | 2021-04-07 12:22 | P.PCN ---
Description of Procedure: Diagnoses is acute chronic failure with high potassium Postoperative is same Procedure ultrasound-guided dialysis cath placement femoral approach right groin were prepped and draped applied sterile manner 1% lidocaine were infiltrated the groin area. Then palpable pressure introduced right femoral vein micropuncture guidewire passed and 4-English dilator advanced on the top of guidewire. Then we passed a regular guidewire without any resistance dilator was advanced on the top of guidewire then we placed a dialysis catheter flushed with heparin saline and secured with 3-0 nylon dressing applied patient tolerated the procedure well
[2021-04-07 12:24] LABS: Calcium 8.5 mg/dL (8.4-10.2); Potassium 5.9 mmol/L (3.5-5.1)
[2021-04-07] MEDS: NOREPINEPHRINE 4 MG in SODIUM CHLORIDE 0.9% 250 ML IV ONE (13:20)
--- NOTE | 2021-04-07 13:24 | P.PN ---
Subjective Progress Note Date: 04/07/21 Principal diagnosis: weakness Patient denies any active complaints. However he is not a reliable historian. Objective - Vital Signs Vital signs: Vital Signs Temp 7.9 F L 04/07/21 06:02 Pulse 84 04/07/21 13:18 Resp 18 04/07/21 13:18 BP 83/46 04/07/21 13:18 Pulse Ox 100 04/07/21 13:18 Intake & Output 04/06/21 04/07/21 04/07/21 18:59 06:59 18:59 Output Total 900 Balance -900 Weight 52.163 kg Output: Urine 900 Uretheral (Barker) 900 - Exam Constitutional: No acute distress, conversant, pleasant Eyes:Anicteric sclerae, moist conjunctiva, no lid-lag, PERRLA, ENMT: Oropharynx clear, no erythema, exudates Neck: Supple, FROM, no masses, or JVD, No carotid bruits, No thyromegaly Lungs: Clear to auscultation, Clear to percussion, Normal respiratory effort, no accessory muscle use Cardiovascular: Heart regular in rate and rhythm, No murmurs, gallops, or rubs, No peripheral edema Abdominal: Soft, Nontender, no guarding, rebound or rigidity, Normoactive bowel sounds, No hepatomegaly, No splenomegaly, No palpable mass Skin: Normal temperature, tone, texture, turgor, no induration, No subcutaneous nodules, No rash, lesions, No ulcers Extremities: No digital cyanosis, No clubbing, Pedal pulses intact and symme trical, Radial pulses intact and symmetrical, No calf tenderness Psychiatric: Alert and oriented to person, place and time, appropriate affect, intact judgement Neuro: Muscles Strength 5/5 in all 4 extremities, Sensation to light touch grossly present throughout, Cranial nerves II-XII grossly intact, no focal sensory deficits - Labs CBC & Chem 7: 04/07/21 06:29 04/07/21 11:51 Labs: Abnormal Lab Results - Last 24 Hours (Table) 04/06/21 04/06/21 04/06/21 Range/Units 18:55 18:55 18:55 WBC 11.8 H (3.8-10.6) k/uL RBC 3.80 L (4.30-5.90) m/uL Hgb 10.4 L (13.0-17.5) gm/dL Hct 32.9 L (39.0-53.0) % MCHC (31.0-37.0) g/dL Plt Count 470 H D (150-450) k/uL Neutrophils # 9.7 H (1.3-7.7) k/uL D-Dimer (<0.60) mg/L FEU Sodium 134 L (137-145) mmol/L Potassium 6.2 H* (3.5-5.1) mmol/L Chloride (98-107) mmol/L Carbon Dioxide 12 L (22-30) mmol/L BUN 197 H* (9-20) mg/dL Creatinine 9.41 H* (0.66-1.25) mg/dL Glucose 142 H (74-99) mg/dL POC Glucose (mg/dL) (75-99) mg/dL Magnesium 2.4 H (1.6-2.3) mg/dL Troponin I 0.061 H* (0.000-0.034) ng/mL C-Reactive Protein (<1.0) mg/dL Albumin 3.3 L (3.5-5.0) g/dL Procalcitonin (0.02-0.09) ng/mL Urine Protein (Negative) Urine Blood (Negative) Ur Leukocyte Esterase (Negative) Urine RBC (0-5) /hpf Urine WBC (0-5) /hpf Urine WBC Clumps (None) /hpf Urine Bacteria (None) /hpf Coronavirus (PCR) (Not Detectd) 04/06/21 04/07/21 04/07/21 Range/Units 18:55 03:05 03:05 WBC (3.8-10.6) k/uL RBC (4.30-5.90) m/uL Hgb (13.0-17.5) gm/dL Hct (39.0-53.0) % MCHC (31.0-37.0) g/dL Plt Count (150-450) k/uL Neutrophils # (1.3-7.7) k/uL D-Dimer (<0.60) mg/L FEU Sodium (137-145) mmol/L Potassium 6.8 H* (3.5-5.1) mmol/L Chloride (98-107) mmol/L Carbon Dioxide (22-30) mmol/L BUN (9-20) mg/dL Creatinine (0.66-1.25) mg/dL Glucose (74-99) mg/dL POC Glucose (mg/dL) (75-99) mg/dL Magnesium (1.6-2.3) mg/dL Troponin I 0.061 H* (0.000-0.034) ng/mL C-Reactive Protein (<1.0) mg/dL Albumin (3.5-5.0) g/dL Procalcitonin (0.02-0.09) ng/mL Urine Protein (Negative) Urine Blood (Negative) Ur Leukocyte Esterase (Negative) Urine RBC (0-5) /hpf Urine WBC (0-5) /hpf Urine WBC Clumps (None) /hpf Urine Bacteria (None) /hpf Coronavirus (PCR) Detected A (Not Detectd) 04/07/21 04/07/21 04/07/21 Range/Units 06:29 06:29 06:29 WBC 16.3 H (3.8-10.6) k/uL RBC 3.27 L (4.30-5.90) m/uL Hgb 8.6 L D (13.0-17.5) gm/dL Hct 28.9 L (39.0-53.0) % MCHC 29.8 L (31.0-37.0) g/dL Plt Count (150-450) k/uL Neutrophils # (1.3-7.7) k/uL D-Dimer (<0.60) mg/L FEU Sodium (137-145) mmol/L Potassium (3.5-5.1) mmol/L Chloride (98-107) mmol/L Carbon Dioxide (22-30) mmol/L BUN (9-20) mg/dL Creatinine (0.66-1.25) mg/dL Glucose (74-99) mg/dL POC Glucose (mg/dL) (75-99) mg/dL Magnesium (1.6-2.3) mg/dL Troponin I 0.060 H* (0.000-0.034) ng/mL C-Reactive Protein 7.3 H (<1.0) mg/dL Albumin (3.5-5.0) g/dL Procalcitonin (0.02-0.09) ng/mL Urine Protein (Negative) Urine Blood (Negative) Ur Leukocyte Esterase (Negative) Urine RBC (0-5) /hpf Urine WBC (0-5) /hpf Urine WBC Clumps (None) /hpf Urine Bacteria (None) /hpf Coronavirus (PCR) (Not Detectd) 04/07/21 04/07/21 04/07/21 Range/Units 06:29 06:29 06:29 WBC (3.8-10.6) k/uL RBC (4.30-5.90) m/uL Hgb (13.0-17.5) gm/dL Hct (39.0-53.0) % MCHC (31.0-37.0) g/dL Plt Count (150-450) k/uL Neutrophils # (1.3-7.7) k/uL D-Dimer 1.84 H (<0.60) mg/L FEU Sodium (137-145) mmol/L Potassium 6.6 H* (3.5-5.1) mmol/L Chloride (98-107) mmol/L Carbon Dioxide (22-30) mmol/L BUN (9-20) mg/dL Creatinine (0.66-1.25) mg/dL Glucose (74-99) mg/dL POC Glucose (mg/dL) (75-99) mg/dL Magnesium (1.6-2.3) mg/dL Troponin I (0.000-0.034) ng/mL C-Reactive Protein (<1.0) mg/dL Albumin (3.5-5.0) g/dL Procalcitonin 1.22 H (0.02-0.09) ng/mL Urine Protein (Negative) Urine Blood (Negative) Ur Leukocyte Esterase (Negative) Urine RBC (0-5) /hpf Urine WBC (0-5) /hpf Urine WBC Clumps (None) /hpf Urine Bacteria (None) /hpf Coronavirus (PCR) (Not Detectd) 04/07/21 04/07/21 04/07/21 Range/Units 06:55 09:35 11:51 WBC (3.8-10.6) k/uL RBC (4.30-5.90) m/uL Hgb (13.0-17.5) gm/dL Hct (39.0-53.0) % MCHC (31.0-37.0) g/dL Plt Count (150-450) k/uL Neutrophils # (1.3-7.7) k/uL D-Dimer (<0.60) mg/L FEU Sodium 134 L (137-145) mmol/L Potassium 5.9 H (3.5-5.1) mmol/L Chloride 108 H (98-107) mmol/L Carbon Dioxide 11 L (22-30) mmol/L BUN 200 H* (9-20) mg/dL Creatinine 9.07 H* (0.66-1.25) mg/dL Glucose 151 H (74-99) mg/dL POC Glucose (mg/dL) 109 H (75-99) mg/dL Magnesium (1.6-2.3) mg/dL Troponin I (0.000-0.034) ng/mL C-Reactive Protein (<1.0) mg/dL Albumin (3.5-5.0) g/dL Procalcitonin (0.02-0.09) ng/mL Urine Protein 2+ H (Negative) Urine Blood Large H (Negative) Ur Leukocyte Esterase Large H (Negative) Urine RBC 161 H (0-5) /hpf Urine WBC >182 H (0-5) /hpf Urine WBC Clumps Many H (None) /hpf Urine Bacteria Rare H (None) /hpf Coronavirus (PCR) (Not Detectd) Microbiology - Last 24 Hours (Table) 04/07/21 06:55 Urine Culture - Preliminary Urine,Catheterized Assessment and Plan Plan: MINI on CKD possibly post obstructive uropathy secondary to BPH, hyperkalemia , EKG normal sinus rhythm COVID with hx of COPD chronic anemia elevated trops flat likely due to CKD plan check renal US for hydronephrosis barker cath inserted , monitor urine output nephrology consulted, planning dialysis, cath inserted by vascular Received potassium lowering cocktail (insulin IV and D50) monoclonal antibody for covid , no oxygen requirement at this time continue with eliquis for afib supportive care IVF hydration with normal saline monitor hemoglobin chronic conditions no available history , but from assessment and med list P. afib on eliquis and lopressor hypertension , continue amlodipine hyperlipidemia continue statin dementia , advanced age PT eval fall risk full code DVT PPX on eliquis
[2021-04-07] MEDS: ASCORBIC ACID 500 MG TAB PO SCH ×2 (13:34→23:40)
[2021-04-07 22:33] LABS: ALT 31 U/L (10-49); AST 28 U/L (14-35); Albumin 2.5 g/dL (3.8-4.9); Albumin/Globulin Ratio 0.88 (1.60-3.17); Alkaline Phosphatase 47 U/L (41-126); BUN/Creat Ratio 19.47 Ratio (12.00-20.00); Blood Urea Nitrogen 54.9 mg/dL (9.0-27.0); Carbon Dioxide 22.1 mmol/L (20.0-27.5); Chloride 104 mmol/L (96-109); Globulin 2.9 g/dL (1.6-3.3); Glucose 121 mg/dL (70-110); Magnesium 1.9 mg/dL (1.5-2.4); Phosphorus 2.8 mg/dL (2.4-5.1); Potassium 3.7 mmol/L (3.5-5.5); Sodium 141 mmol/L (135-145); Total Bilirubin <0.20 mg/dL (0.30-1.20); Total Protein 5.4 g/dL (6.2-8.2)
[2021-04-07 22:34] LABS: Hepatitis B Surface AB- Quant 3.5 mIU/mL; Hepatitis B Surface Antibody Nonreactive (Nonreactive); Hepatitis B Surface Antigen Nonreactive (Nonreactive)
[2021-04-07] MEDS: ATORVASTATIN 10 MG TAB PO SCH (23:40)
[2021-04-08 00:44] LABS: Glucose,Whole Blood 156 mg/dL (75-99)
[2021-04-08] MEDS: SYMBICORT 160-4.5 MCG INHALER INHALATION SCH ×3 (01:02→20:34)
[2021-04-08 03:52] LABS: MCH 27.1 pg (25.0-35.0); MCHC 32.3 g/dL (31.0-37.0); MCV 83.8 fL (80.0-100.0); Mean Platelet Volume 7.6; Platelet Count 284 k/uL (150-450); RDW 14.2 % (11.5-15.5); WBC 13.8 k/uL (3.8-10.6)
[2021-04-08 03:56] LABS: HGB 6.8 gm/dL (13.0-17.5)
[2021-04-08 06:08] LABS: Basophils % (A) 0 %; Eosinophils % (A) 0 %; HCT 21.5 % (39.0-53.0); HGB 7.1 gm/dL (13.0-17.5); Lymphocytes # (A) 1.2 k/uL (1.0-4.8); Lymphocytes % (A) 9 %; MCH 27.8 pg (25.0-35.0); MCHC 33.1 g/dL (31.0-37.0); MCV 83.9 fL (80.0-100.0); Mean Platelet Volume 7.3; Monocytes # (A) 0.5 k/uL (0-1.0); Monocytes % (A) 4 %; Neutrophils # (A) 12.4 k/uL (1.3-7.7); Neutrophils % (A) 87 %; Platelet Count 294 k/uL (150-450); RBC 2.56 m/uL (4.30-5.90); RDW 14.2 % (11.5-15.5); WBC 14.2 k/uL (3.8-10.6)
[2021-04-08 06:19] LABS: Calcium 7.5 mg/dL (8.4-10.2); Magnesium 1.8 mg/dL (1.6-2.3); Phosphorus 5.5 mg/dL (2.5-4.5); Potassium 4.4 mmol/L (3.5-5.1)
[2021-04-08] MEDS: ALBUTEROL HFA INHALER INHALATION PRN ×4 (07:30→20:34)
--- NOTE | 2021-04-08 07:53 | P.PN ---
Subjective Progress Note Date: 04/08/21 Principal diagnosis: weakness Patient was seen and examined at bedside. Overnight issues significant for severe hematuria in the Lomeli catheter. Patient has also been on Levophed for hypotension since admission. He states that he feels fine, denies any pain or shortness of breath. No fevers or chills, no nausea or vomiting. He lacks insight and why he is in the hospital. Objective - Vital Signs Vital signs: Vital Signs Temp 98.5 F 04/08/21 04:00 Pulse 98 04/08/21 07:30 Resp 22 04/08/21 07:30 BP 101/52 04/08/21 07:30 Pulse Ox 88 L 04/08/21 07:30 Intake & Output 04/07/21 04/08/21 04/08/21 18:59 06:59 18:59 Intake Total 2.815 1073.204 150 Output Total 60 4000 200 Balance -57.185 -2926.796 -50 Weight 58.8 kg Intake: IV 900 150 Dextrose 5% in Water 1, 900 150 000 ml @ 150 mls/hr IV . Q7H40M FARZANA with Sodium Bicarb (1 Meq/ml) 150 ml Rx#:[id number] Intake, IV Titration 2.815 173.204 Amount Norepinephrine 4 mg In 2.815 173.204 Sodium Chloride 0.9% 250 ml @ 0.05 MCG/KG/MIN 9. 937 mls/hr IV .Q24H ONE Rx#:[id number] Output: Urine 60 1700 200 Hemodialysis 2300 Other: Voiding Method Indwelling Catheter - Exam Constitutional: No acute distress, conversant, pleasant Eyes:Anicteric sclerae, moist conjunctiva, no lid-lag, PERRLA, ENMT: Oropharynx clear, no erythema, exudates Neck: Supple, FROM, no masses, or JVD, No carotid bruits, No thyromegaly Lungs: Clear to auscultation, Clear to percussion, Normal respiratory effort, no accessory muscle use Cardiovascular: Heart regular in rate and rhythm, No murmurs, gallops, or rubs, No peripheral edema Abdominal: Soft, Nontender, no guarding, rebound or rigidity, Normoactive bowel sounds, No hepatomegaly, No splenomegaly, No palpable mass Skin: Normal temperature, tone, texture, turgor, no induration, No subcutaneous nodules, No rash, lesions, No ulcers Extremities: No digital cyanosis, No clubbing, Pedal pulses intact and symmetrical, Radial pulses intact and symmetrical, No calf tenderness Psychiatric: Alert and oriented to person, place and time, appropriate affect, intact judgement Neuro: Muscles Strength 5/5 in all 4 extremities, Sensation to light touch grossly present throughout, Cranial nerves II-XII grossly intact, no focal sensory deficits - Labs CBC & Chem 7: 04/08/21 05:33 04/08/21 05:33 Labs: Abnormal Lab Results - Last 24 Hours (Table) 04/07/21 04/07/21 04/07/21 Range/Units 06:29 06:29 06:29 WBC (3.8-10.6) k/uL RBC (4.30-5.90) m/uL Hgb (13.0-17.5) gm/dL Hct (39.0-53.0) % Neutrophils # (1.3-7.7) k/uL Sodium (137-145) mmol/L Potassium 6.6 H* (3.5-5.1) mmol/L Chloride (98-107) mmol/L Carbon Dioxide (22-30) mmol/L BUN 54.9 H (9.0-27.0) mg/dL Creatinine 2.8 H (0.6-1.5) mg/dL Est GFR (CKD-EPI)AfAm 22.0 L (60.0-200.0) Est GFR (CKD-EPI)NonAf 19.0 L (60.0-200.0) Glucose 121 H (70-110) mg/dL POC Glucose (mg/dL) (75-99) mg/dL Calcium 8.0 L (8.7-10.3) mg/dL Phosphorus (2.5-4.5) mg/dL Ferritin 1273.0 H (22.0-322.0) ng/mL Total Bilirubin <0.20 L (0.30-1.20) mg/dL C-Reactive Protein 7.3 H (<1.0) mg/dL Total Protein 5.4 L (6.2-8.2) g/dL Albumin 2.5 L (3.8-4.9) g/dL Albumin/Globulin Ratio 0.88 L (1.60-3.17) g/dL Procalcitonin 1.22 H (0.02-0.09) ng/mL Urine Protein (Negative) Urine Blood (Negative) Ur Leukocyte Esterase (Negative) Urine RBC (0-5) /hpf Urine WBC (0-5) /hpf Urine WBC Clumps (None) /hpf Urine Bacteria (None) /hpf 04/07/21 04/07/21 04/07/21 Range/Units 06:55 09:35 11:51 WBC (3.8-10.6) k/uL RBC (4.30-5.90) m/uL Hgb (13.0-17.5) gm/dL Hct (39.0-53.0) % Neutrophils # (1.3-7.7) k/uL Sodium 134 L (137-145) mmol/L Potassium 5.9 H (3.5-5.1) mmol/L Chloride 108 H (98-107) mmol/L Carbon Dioxide 11 L (22-30) mmol/L BUN 200 H* (9.0-27.0) mg/dL Creatinine 9.07 H* (0.6-1.5) mg/dL Est GFR (CKD-EPI)AfAm (60.0-200.0) Est GFR (CKD-EPI)NonAf (60.0-200.0) Glucose 151 H (70-110) mg/dL POC Glucose (mg/dL) 109 H (75-99) mg/dL Calcium (8.7-10.3) mg/dL Phosphorus (2.5-4.5) mg/dL Ferritin (22.0-322.0) ng/mL Total Bilirubin (0.30-1.20) mg/dL C-Reactive Protein (<1.0) mg/dL Total Protein (6.2-8.2) g/dL Albumin (3.8-4.9) g/dL Albumin/Globulin Ratio (1.60-3.17) g/dL Procalcitonin (0.02-0.09) ng/mL Urine Protein 2+ H (Negative) Urine Blood Large H (Negative) Ur Leukocyte Esterase Large H (Negative) Urine RBC 161 H (0-5) /hpf Urine WBC >182 H (0-5) /hpf Urine WBC Clumps Many H (None) /hpf Urine Bacteria Rare H (None) /hpf 04/08/21 04/08/21 04/08/21 Range/Units 00:43 02:54 05:33 WBC 13.8 H 14.2 H (3.8-10.6) k/uL RBC 2.50 L 2.56 L (4.30-5.90) m/uL Hgb 6.8 L* D 7.1 L (13.0-17.5) gm/dL Hct 21.0 L 21.5 L (39.0-53.0) % Neutrophils # 12.4 H (1.3-7.7) k/uL Sodium (137-145) mmol/L Potassium (3.5-5.1) mmol/L Chloride (98-107) mmol/L Carbon Dioxide (22-30) mmol/L BUN (9.0-27.0) mg/dL Creatinine (0.6-1.5) mg/dL Est GFR (CKD-EPI)AfAm (60.0-200.0) Est GFR (CKD-EPI)NonAf (60.0-200.0) Glucose (70-110) mg/dL POC Glucose (mg/dL) 156 H (75-99) mg/dL Calcium (8.7-10.3) mg/dL Phosphorus (2.5-4.5) mg/dL Ferritin (22.0-322.0) ng/mL Total Bilirubin (0.30-1.20) mg/dL C-Reactive Protein (<1.0) mg/dL Total Protein (6.2-8.2) g/dL Albumin (3.8-4.9) g/dL Albumin/Globulin Ratio (1.60-3.17) g/dL Procalcitonin (0.02-0.09) ng/mL Urine Protein (Negative) Urine Blood (Negative) Ur Leukocyte Esterase (Negative) Urine RBC (0-5) /hpf Urine WBC (0-5) /hpf Urine WBC Clumps (None) /hpf Urine Bacteria (None) /hpf 04/08/21 Range/Units 05:33 WBC (3.8-10.6) k/uL RBC (4.30-5.90) m/uL Hgb (13.0-17.5) gm/dL Hct (39.0-53.0) % Neutrophils # (1.3-7.7) k/uL Sodium 135 L (137-145) mmol/L Potassium (3.5-5.1) mmol/L Chloride (98-107) mmol/L Carbon Dioxide (22-30) mmol/L BUN 98 H (9.0-27.0) mg/dL Creatinine 4.48 H (0.6-1.5) mg/dL Est GFR (CKD-EPI)AfAm (60.0-200.0) Est GFR (CKD-EPI)NonAf (60.0-200.0) Glucose 129 H (70-110) mg/dL POC Glucose (mg/dL) (75-99) mg/dL Calcium 7.5 L (8.7-10.3) mg/dL Phosphorus 5.5 H (2.5-4.5) mg/dL Ferritin (22.0-322.0) ng/mL Total Bilirubin (0.30-1.20) mg/dL C-Reactive Protein (<1.0) mg/dL Total Protein (6.2-8.2) g/dL Albumin (3.8-4.9) g/dL Albumin/Globulin Ratio (1.60-3.17) g/dL Procalcitonin (0.02-0.09) ng/mL Urine Protein (Negative) Urine Blood (Negative) Ur Leukocyte Esterase (Negative) Urine RBC (0-5) /hpf Urine WBC (0-5) /hpf Urine WBC Clumps (None) /hpf Urine Bacteria (None) /hpf Microbiology - Last 24 Hours (Table) 04/07/21 06:55 Urine Culture - Preliminary Urine,Catheterized Assessment and Plan Plan: MINI on CKD possibly post obstructive uropathy secondary to BPH, hyperkalemia Lomeli catheter inserted Renal ultrasound pending Nephrology following Dialysis catheter inserted and dialysis initiated' Follow up cr and lytes COVID with hx of COPD O2 saturation currently stable on nasal cannula continue to monitor Patient received monoclonal antibodies on admission Start Decadron 6 mg IV daily as he's starting to become hypoxic Hypotension Could be secondary to dehydration versus sepsis from Covid IV fluids Acute on chronic anemia secondary to blood loss Hold liquids and aspirin Transfuse 1 unit packed red blood cells Elevated [place] likely due to CKD chronic conditions P. afib on eliquis and lopressor, holding eliquis due to bleeding Hypertension , hold bp meds hyperlipidemia continue statin dementia , advanced age PT eval fall risk full code DVT PPX SCDs
[2021-04-08] MEDS ORDERED: IOPAMIDOL CONTRAST (ORAL USE) VIAL PO PRN (07:54)
--- NOTE | 2021-04-08 07:54 | P.PN ---
Subjective Progress Note Date: 04/08/21 89-year-old male with history of hypertension, chronic hypoxemic respiratory failure, hyperlipidemia, COPD, and atrial fibrillation, CKD and the patient's creatinine was 2.39. He comes into the emergency room complaining of profound weakness, and poor appetite, not eating or drinking anything by mouth. The patient's currently on 2 L 20/10. He had a brain CT in the ER, that was negative. His chest x-ray was also essentially negative. Laboratory data includes a white count 16.3, hemoglobin 8.6, hematocrit 28.9, and a platelet count 433,000. D-dimer was 1.84. Sodium 134, potassium 6.6, chlorides 104, CO2 12, anion gap 18, BUN 197 with a creatinine of 9.41. The troponin was 0.061 0.061 and 0.060. LDH 346. C-reactive protein was 7.3. TSH was normal. The patient's IV was increased to 150 mL an hour, sodium bicarbonate drip to be run at 150 mL an hour. He was given IV calcium gluconate, 10 units IV regular insulin with amp of D50, 2 A of sodium bicarbonate IV push now, 10 g lokelma, v ascular surgery for dialysis catheter placement,and the patient was given the first treatment of hemodialysis. Patient tested positive for coronavirus infection. This may be more of an incidental finding, as the patient's respiratory status is pre-much at baseline. The patient is on vitamin C, vi tamin D3, and zinc. The patient was given his first session of hemodialysis. Postdialysis, he had hypotension and the patient was started on pressors and currently is on norepinephrine infusion running at 0.05 mcg/kg per minute. Morning labs showed improvement. His potassium level is down to 4.4. His serum bicarb is up to 30 antibiotics at night in terms of IV fluids he was on bicarb infusion and currently is on still on bicarb infusion. 150 mL an hour. This can be switched to a normal saline knowing that his serum bicarb is currently at 30 as his arrival to the ICU, the patient had no urine output. A Lomeli catheter was flushed. Following that, the patient started having gross hematuria and he lost approximately 1.5 L of bloody output from his Lomeli catheter. Hemoglobin today was dropped down to 6.8 and the patient was giventransfusion. Follow-up hemoglobin today is at 7.1. Neurology has been consulted. Noted the patient received some limited amount of heparin hearing hemodialysis. To my knowledge, the Lomeli insertion was none traumatic. This Lomeli catheter was inserted in the emergency department. Ultrasound the kidneys showed severe right hydronephrosis. There was also mild to moderate left-sided hydronephrosis. There was a distended bladder despite the Lomeli catheter insertion and a bulging prostate. No evidence of any intraluminal masses. The patient is awake and alert and oriented 3. He has no specific complaints. No issues with pain. He was taken anticoagulation with Eliquis 2.5 mg twice a day and this was placed on hold. He is currently on pressors running at the rate of 0.05 mcg/kg per minute. They and to coagulation was initiated for a bout of atrial fibrillation during an earlier admission and currently his current rhythm is sinus. The patient's coagulation profile is been within normal limits. D-dimer is at 1.84. COVID 19 status is positive. Objective - Vital Signs Vital signs: Vital Signs Temp 98.5 F 04/08/21 04:00 Pulse 98 04/08/21 07:30 Resp 22 04/08/21 07:30 BP 101/52 04/08/21 07:30 Pulse Ox 88 L 04/08/21 07:30 Intake & Output 04/07/21 04/08/21 04/08/21 18:59 06:59 18:59 Intake Total 2.815 1073.204 150 Output Total 60 4000 200 Balance -57.185 -2926.796 -50 Weight 58.8 kg Intake: IV 900 150 Dextrose 5% in Water 1, 900 150 000 ml @ 150 mls/hr IV . Q7H40M FARZANA with Sodium Bicarb (1 Meq/ml) 150 ml Rx#:[id number] Intake, IV Titration 2.815 173.204 Amount Norepinephrine 4 mg In 2.815 173.204 Sodium Chloride 0.9% 250 ml @ 0.05 MCG/KG/MIN 9. 937 mls/hr IV .Q24H ONE Rx#:[id number] Output: Urine 60 1700 200 Hemodialysis 2300 Other: Voiding Method Indwelling Catheter - Exam No acute distress, oriented 3. The patient's very lethargic. He is on 2 L nasal O2. HEENT examination is grossly unremarkable. Mucous membranes are dry. Neck supple. Full range of motion. No adenopathy thyromegaly or neck vein distention. Cardiovascular examination reveals regular rhythm rate. S1-S2 normal. No S3 or S4. No discernible murmur noted. Heart sounds are distant. Heart rate 79 bpm. Blood pressures only 67/56 with mean of 59. Lungs reveal scattered bilateral rhonchi. Breath sounds equal but diminished throughout. No wheezes or crackles. Abdomen soft, with diminished bowel sounds. No masses or tenderness. Extremities are intact. No cyanosis clubbing or edema. Skin is without rash or lesion. Neurologic examination is brief but nonfocal. - Labs CBC & Chem 7: 04/08/21 05:33 04/08/21 05:33 Labs: Abnormal Lab Results - Last 24 Hours (Table) 04/07/21 04/07/21 04/07/21 Range/Units 06:29 06:29 06:29 WBC (3.8-10.6) k/uL RBC (4.30-5.90) m/uL Hgb (13.0-17.5) gm/dL Hct (39.0-53.0) % Neutrophils # (1.3-7.7) k/uL Sodium (137-145) mmol/L Potassium (3.5-5.1) mmol/L Chloride (98-107) mmol/L Carbon Dioxide (22-30) mmol/L BUN 54.9 H (9.0-27.0) mg/dL Creatinine 2.8 H (0.6-1.5) mg/dL Est GFR (CKD-EPI)AfAm 22.0 L (60.0-200.0) Est GFR (CKD-EPI)NonAf 19.0 L (60.0-200.0) Glucose 121 H (70-110) mg/dL POC Glucose (mg/dL) (75-99) mg/dL Calcium 8.0 L (8.7-10.3) mg/dL Phosphorus (2.5-4.5) mg/dL Ferritin 1273.0 H (22.0-322.0) ng/mL Total Bilirubin <0.20 L (0.30-1.20) mg/dL Troponin I 0.060 H* (0.000-0.034) ng/mL C-Reactive Protein 7.3 H (<1.0) mg/dL Total Protein 5.4 L (6.2-8.2) g/dL Albumin 2.5 L (3.8-4.9) g/dL Albumin/Globulin Ratio 0.88 L (1.60-3.17) g/dL Procalcitonin 1.22 H (0.02-0.09) ng/mL Urine Protein (Negative) Urine Blood (Negative) Ur Leukocyte Esterase (Negative) Urine RBC (0-5) /hpf Urine WBC (0-5) /hpf Urine WBC Clumps (None) /hpf Urine Bacteria (None) /hpf 04/07/21 04/07/21 04/07/21 Range/Units 06:29 06:55 09:35 WBC (3.8-10.6) k/uL RBC (4.30-5.90) m/uL Hgb (13.0-17.5) gm/dL Hct (39.0-53.0) % Neutrophils # (1.3-7.7) k/uL Sodium (137-145) mmol/L Potassium 6.6 H* (3.5-5.1) mmol/L Chloride (98-107) mmol/L Carbon Dioxide (22-30) mmol/L BUN (9.0-27.0) mg/dL Creatinine (0.6-1.5) mg/dL Est GFR (CKD-EPI)AfAm (60.0-200.0) Est GFR (CKD-EPI)NonAf (60.0-200.0) Glucose (70-110) mg/dL POC Glucose (mg/dL) 109 H (75-99) mg/dL Calcium (8.7-10.3) mg/dL Phosphorus (2.5-4.5) mg/dL Ferritin (22.0-322.0) ng/mL Total Bilirubin (0.30-1.20) mg/dL Troponin I (0.000-0.034) ng/mL C-Reactive Protein (<1.0) mg/dL Total Protein (6.2-8.2) g/dL Albumin (3.8-4.9) g/dL Albumin/Globulin Ratio (1.60-3.17) g/dL Procalcitonin (0.02-0.09) ng/mL Urine Protein 2+ H (Negative) Urine Blood Large H (Negative) Ur Leukocyte Esterase Large H (Negative) Urine RBC 161 H (0-5) /hpf Urine WBC >182 H (0-5) /hpf Urine WBC Clumps Many H (None) /hpf Urine Bacteria Rare H (None) /hpf 04/07/21 04/08/21 04/08/21 Range/Units 11:51 00:43 02:54 WBC 13.8 H (3.8-10.6) k/uL RBC 2.50 L (4.30-5.90) m/uL Hgb 6.8 L* D (13.0-17.5) gm/dL Hct 21.0 L (39.0-53.0) % Neutrophils # (1.3-7.7) k/uL Sodium 134 L (137-145) mmol/L Potassium 5.9 H (3.5-5.1) mmol/L Chloride 108 H (98-107) mmol/L Carbon Dioxide 11 L (22-30) mmol/L BUN 200 H* (9.0-27.0) mg/dL Creatinine 9.07 H* (0.6-1.5) mg/dL Est GFR (CKD-EPI)AfAm (60.0-200.0) Est GFR (CKD-EPI)NonAf (60.0-200.0) Glucose 151 H (70-110) mg/dL POC Glucose (mg/dL) 156 H (75-99) mg/dL Calcium (8.7-10.3) mg/dL Phosphorus (2.5-4.5) mg/dL Ferritin (22.0-322.0) ng/mL Total Bilirubin (0.30-1.20) mg/dL Troponin I (0.000-0.034) ng/mL C-Reactive Protein (<1.0) mg/dL Total Protein (6.2-8.2) g/dL Albumin (3.8-4.9) g/dL Albumin/Globulin Ratio (1.60-3.17) g/dL Procalcitonin (0.02-0.09) ng/mL Urine Protein (Negative) Urine Blood (Negative) Ur Leukocyte Esterase (Negative) Urine RBC (0-5) /hpf Urine WBC (0-5) /hpf Urine WBC Clumps (None) /hpf Urine Bacteria (None) /hpf 04/08/21 04/08/21 Range/Units 05:33 05:33 WBC 14.2 H (3.8-10.6) k/uL RBC 2.56 L (4.30-5.90) m/uL Hgb 7.1 L (13.0-17.5) gm/dL Hct 21.5 L (39.0-53.0) % Neutrophils # 12.4 H (1.3-7.7) k/uL Sodium 135 L (137-145) mmol/L Potassium (3.5-5.1) mmol/L Chloride (98-107) mmol/L Carbon Dioxide (22-30) mmol/L BUN 98 H (9.0-27.0) mg/dL Creatinine 4.48 H (0.6-1.5) mg/dL Est GFR (CKD-EPI)AfAm (60.0-200.0) Est GFR (CKD-EPI)NonAf (60.0-200.0) Glucose 129 H (70-110) mg/dL POC Glucose (mg/dL) (75-99) mg/dL Calcium 7.5 L (8.7-10.3) mg/dL Phosphorus 5.5 H (2.5-4.5) mg/dL Ferritin (22.0-322.0) ng/mL Total Bilirubin (0.30-1.20) mg/dL Troponin I (0.000-0.034) ng/mL C-Reactive Protein (<1.0) mg/dL Total Protein (6.2-8.2) g/dL Albumin (3.8-4.9) g/dL Albumin/Globulin Ratio (1.60-3.17) g/dL Procalcitonin (0.02-0.09) ng/mL Urine Protein (Negative) Urine Blood (Negative) Ur Leukocyte Esterase (Negative) Urine RBC (0-5) /hpf Urine WBC (0-5) /hpf Urine WBC Clumps (None) /hpf Urine Bacteria (None) /hpf Microbiology - Last 24 Hours (Table) 04/07/21 06:55 Urine Culture - Preliminary Urine,Catheterized Assessment and Plan Plan: 1. Acute kidney injury secondary to ATN on top of CKD and this is secondary to hypotension/severe sepsis. Creatinine 9.41 on admission. The patient got hemodialysis yesterday. Potassium level improved. Creatinine is down. The patient postdialysis became hypotensive and currently is running a lower dose norepinephrine infusion for blood pressure support. Note that the hypotension occurred also at the time of massive hematuria that the patient encounter. The patient was taken and to coagulation with Eliquis for approximately atrial fibrillation and anticoagulation is currently on hold. Hemoglobin dropped down to 6.8. No transfusion was given the patient's current hemoglobin is up to 7.1. The patient also has bilateral hydronephrosis, worse on the right. Neurology is on the case. 2. Hyperkalemia secondary to acute kidney injury and metabolic acidosis, improved 3. Metabolic acidosis secondary to acute kidney injury, improved 4 chronic kidney disease. Patient's creatinine in February 2021 was in the range of 2.1-2.5. In March 2020, it was 1.23. 5 Acute COVID-19 infection 6 History of atrial fibrillation. The patient's current rhythm is sinus and the patient was taken anticoagulation with Eliquis. 7 History of hyperlipidemia. 8 History of hypertension. 9 History of severe COPD with chronic hypoxemic respiratory failure. 10 Hematuria, could be related to a traumatic Lomeli catheterization. Nevertheless the patient has bilateral hydronephrosis worse on the right. Bladder is also distended. May benefit from a CAT scan of the abdomen and pelvis. Urology is on the case. Dictated morning Plan The patient does need to be seen by urology. I'm concerned about the bilateral hydronephrosis and hematuria and a distended bladder. Based onchair, he may need a CAT scan of the abdomen and pelvis to further investigate his abnormalities. Noted the patient has a component of chronic kidney disease based on his previous creatinines. Monitor hematuria and consider a [address], Lomeli catheter insertion for irrigation. Monitor hemoglobin Switch this patient IV fluids to normal saline at the rate of 100 mL an hour Wean off pressors And discontinue monitor oxygenation special with his underlying COVID 19 infection. Note that the patient is not having any COVID 19 related symptoms of the patient's oxygenation is stable for now. Hemodialysis per nephrology Hold anticoagulation for now and the coagulation profile is within normal limits We'll continue to follow make further recommendations based on his progress.
[2021-04-08] MEDS: DEXTROSE 5% IN WATER 1,000 ML with SODIUM BICARB (1 MEQ/ML) 150 ML IV SCH (08:23)
[2021-04-08] MEDS: NOREPINEPHRINE 4 MG in SODIUM CHLORIDE 0.9% 250 ML IV ONE ×2 (08:26→09:48)
[2021-04-08] MEDS: SODIUM CHLORIDE 0.9% 1,000 ML IV SCH ×2 (08:45→20:10)
[2021-04-08 09:09] LABS: HCT 21.6 % (39.0-53.0); MCH 27.2 pg (25.0-35.0); MCHC 32.3 g/dL (31.0-37.0); MCV 84.3 fL (80.0-100.0); Mean Platelet Volume 7.3; Platelet Count 282 k/uL (150-450); RBC 2.56 m/uL (4.30-5.90); RDW 14.2 % (11.5-15.5); WBC 13.9 k/uL (3.8-10.6)
[2021-04-08] MEDS: DEXAMETHASONE SOD PHOSPHATE 10 MG/ML 1 ML VIAL IVP SCH (09:48)
[2021-04-08] MEDS: AMPICILLIN-SULBACTAM 1.5 GM in SODIUM CHLORIDE 0.9% 50 ML IVPB SCH (11:33)
--- NOTE | 2021-04-08 11:35 | CT ---
EXAMINATION TYPE: CT abdomen pelvis wo con DATE OF EXAM: 04/08/2021 HISTORY: Acute renal failure CT DLP: 398.7 mGycm. Automated Exposure Control for Dose Reduction was Utilized. TECHNIQUE: CT scan of the abdomen and pelvis is performed without oral or IV contrast. COMPARISON: Renal ultrasound from yesterday FINDINGS: Within the limitations of a non-contrast study, the following observations are made. LUNG BASES: Tiny right greater than left pleural effusions with associated right basilar compressive atelectasis. Small to tiny pericardial effusion. Coronary artery calcification and/or stents. Some sm all calcified pleural plaques are present. Correlate for prior status post exposure. LIVER/GB: Scattered hypodense lesions of varying size and shape throughout the liver consistent with benign thin-walled cysts. PANCREAS: No significant abnormality is seen. SPLEEN: No significant abnormality is seen. ADRENALS: No significant abnormality is seen. KIDNEYS: Moderate to severe bilateral hydronephrosis is confirmed. Lomeli catheter redemonstrated with in the incompletely decompressed bladder. Foci of nondependent air. Bladder wall shows moderate to se zoey wall thickening greatest anterior inferior aspect. BOWEL: Scattered colonic diverticulosis. GENITAL ORGANS: Markedly enlarged prostate gland consistent with BPH. In addition there is lobulated mass with heterogeneous tissue throughout the luminal bladder along the posterior aspect. This is dif ficult to separate from the enlarged prostate gland along inferior aspect of the bladder. With lobula tracy appearance to the mass or neoplasm would need to be considered. Hematoma and debris are in the di fferential. LYMPH NODES: No greater than 1cm abdominal or pelvic lymph nodes are appreciated. OSSEOUS STRUCTURES: Osseous structures are somewhat demineralized. Mild height loss chronic compressi on fracture at L1 level. Mild height loss superior T12 endplate. Moderate axial joint space loss both hips. OTHER: Moderate to severe calcified plaque of the aorta extends into branch vessels. Right common fem oral groin catheter noted. IMPRESSION: CT findings correlate with ultrasound from yesterday. Confirmation of moderate to severe bilateral hydronephrosis on today's CT. Incomplete emptying of bladder with Lomeli catheter in place. Markedly enlarged prostate consistent with BPH. Heterogeneous lobulated tissue intraluminally in the bladder appears to extend from enlarged prostate, cannot exclude neoplasm. Given more prominent depen dent location cannot exclude debris or intraluminal hematoma. Correlate clinically and consider direc t visualization to further evaluate.
--- NOTE | 2021-04-08 11:49 | PN ---
PROGRESS NOTE Patient is seen for followup for acute kidney injury. He was admitted with a creatinine of 9.4. Patient had hemodialysis yesterday. He was also noted to have bilateral hydronephrosis. Currently he has a Lomeli catheter. Urine output has picked up to about 100 to 200 mL/hour currently. Serum creatinine is down to 4.48 today. Patient remains hypotensive, currently maintained on Levophed. His urine culture did grow group D Enterococcus. Patient's hemoglobin was 6.8, which was dropped from 10.4. He did receive packed RBCs transfusion. He has significant hematuria currently. Patient has just returned from CT of the abdomen, results of which are currently pending. Urology is on consult. On examination today, patient is awake, comfortable, not in any acute distress. Blood pressure 104/48, heart rate 96 per minute. He is afebrile. EXAMINATION OF THE HEART: S1 and S2. EXAMINATION OF LUNGS: Bilateral breath sounds are heard. Abdomen is soft, non-tender. Examination of lower extremities shows no significant edema. SPINAL SURGEON EXAM: Grossly intact. Labs show sodium 135, potassium 4.4, BUN 98, serum creatinine 4.48, hemoglobin 7.0 g/dL. ASSESSMENT: 1. Acute kidney injury, obstructive uropathy as well as acute tubular necrosis, currently nonoliguric with improved urine output. Continue with Lomeli catheter. Patient had one treatment of hemodialysis yesterday. I will hold off on dialysis today and monitor for recovery of renal function. Continue with the Lomeli catheter for now. Avoid nephrotoxic agents. 2. Urinary tract infection with urine culture growing group D Enterococcus. Will start Unasyn. 3. Hypotension, most likely related to underlying infection as well as severe anemia. 4. Anemia due to blood loss from significant hematuria. No other active bleeding noted. 5. Metabolic acidosis associated with advanced renal failure, currently improved post dialysis. 6. Obstructive uropathy. Urology has been consulted. CT of the abdomen is currently pending. Patient had bilateral hydronephrosis on ultrasound. PLAN: Start antibiotics. Hold dialysis. Repeat labs in a.m. Avoid nephrotoxic agents. Hold off on the Eliquis. MMODL / IJN: [id number] /
[2021-04-08] MEDS ORDERED: Magnesium Replacement Protocol 1 EACH MISC MISCELLANE PRN (12:59)
[2021-04-08] MEDS: ASCORBIC ACID 500 MG TAB PO SCH ×2 (13:01→20:29)
[2021-04-08] MEDS: CHOLECALCIFEROL 125 MCG (5000 IU) TABLET PO SCH (13:01)
[2021-04-08 16:37] LABS: HCT 21.5 % (39.0-53.0); MCH 27.1 pg (25.0-35.0); MCV 84.8 fL (80.0-100.0); Mean Platelet Volume 7.4; Platelet Count 265 k/uL (150-450); RBC 2.53 m/uL (4.30-5.90); RDW 14.3 % (11.5-15.5); WBC 12.6 k/uL (3.8-10.6)
[2021-04-08 16:41] LABS: HGB 6.9 gm/dL (13.0-17.5)
[2021-04-08] MEDS: MAGNESIUM SULFATE-D5W PMX 1 GM in DEXTROSE/WATER 1 100ML.BAG IVPB SCH ×3 (16:55→18:14)
[2021-04-08] MEDS ORDERED: NOREPINEPHRINE 4 MG in SODIUM CHLORIDE 0.9% 250 ML IV ONE (19:00)
--- NOTE | 2021-04-08 19:00 | P.GSCN ---
History of Present Illness Consult date: 04/08/21 Reason for Consult: Hematuria, hydronephrosis Requesting physician: Amira Moran History of present illness: The patient is an 89-year-old white male who had an episode of gross hematuria in 2010. Cystoscopy showed prostatic varicosities. At that time, he was taking doxazosin 4 mg daily for BPH. He denies any prior history of urolithiasis. He was brought to the ER by family members for generalized weakness and poor appetite. He was found to be in renal failure and has been dialyzed. CT scan shows bilateral hydroureteronephrosis and possible bladder masses. He has tested positive for COVID-19 but denies increased dyspnea. Review of Systems - Constitutional Reports fatigue, Reports weakness, Denies chills, Denies fever - Genitourinary Reports as per HPI Past Medical History Past Medical History: Atrial Fibrillation, Hypertension Additional Past Medical History / Comment(s): BPH. Takes home medications History of Any Multi-Drug Resistant Organisms: None Reported Past Surgical History: No Surgical Hx Reported Past Anesthesia/Blood Transfusion Reactions: No Reported Reaction Smoking Status: Former smoker - Past Family History Son(s) Family Medical History: CVA/TIA, Myocardial Infarction ([place]) Additional Family Medical History / Comment(s): heart cath with stents Medications and Allergies Home Medications Medication Instructions Recorded Confirmed Type Albuterol Inhaler [Ventolin Hfa 2 puff INHALATION RT-QID PRN 04/28/20 04/06/21 History Inhaler] Aspirin EC [Ecotrin Low Dose] 81 mg PO DAILY 04/28/20 04/06/21 History Doxazosin [Cardura] 4 mg PO DAILY 04/28/20 04/06/21 History Simvastatin [Zocor] 20 mg PO HS 04/28/20 04/06/21 History Budesonide-Formot 160-4.5 Mcg 2 puff INHALATION RT-BID 09/20/20 04/06/21 History [Symbicort 160-4.5 Mcg Inhaler] Multivitamins, Thera [Multivitamin 1 tab PO DAILY 02/27/21 04/06/21 History (formulary)] Apixaban [Eliquis] 2.5 mg PO BID #60 tab 03/01/21 04/06/21 Rx Metoprolol Tartrate [Lopressor] 50 mg PO BID #60 tab 03/02/21 04/06/21 Rx amLODIPine [Norvasc] 5 mg PO DAILY #30 tab 03/02/21 04/06/21 Rx Allergies Allergy/AdvReac Type Severity Reaction Status Date / Time No Known Allergies Allergy Verified 04/06/21 20:12 Surgical - Exam Vital Signs Temp Pulse Resp BP Pulse Ox 97.9 F 78 18 115/62 99 04/06/21 18:35 04/06/21 18:35 04/06/21 18:35 04/06/21 18:35 04/06/21 18:35 - General well developed, well nourished, no distress - Respiratory normal respiratory effort - Abdomen Abdomen: soft, non tender, no guarding, no rigid, no rebound - Genitourinary normal penis with no external lesions, testicles non-tender - Psychiatric oriented to time, oriented to person, oriented to place, speech is normal, memory intact Results - Labs 04/08/21 16:07 04/08/21 05:33 Abnormal Lab Results - Last 24 Hours (Table) 04/07/21 04/08/21 04/08/21 Range/Units 06:29 00:43 02:54 WBC 13.8 H (3.8-10.6) k/uL RBC 2.50 L (4.30-5.90) m/uL Hgb 6.8 L* D (13.0-17.5) gm/dL Hct 21.0 L (39.0-53.0) % Neutrophils # (1.3-7.7) k/uL Sodium (137-145) mmol/L BUN 54.9 H (9.0-27.0) mg/dL Creatinine 2.8 H (0.6-1.5) mg/dL Est GFR (CKD-EPI)AfAm 22.0 L (60.0-200.0) Est GFR (CKD-EPI)NonAf 19.0 L (60.0-200.0) Glucose 121 H (70-110) mg/dL POC Glucose (mg/dL) 156 H (75-99) mg/dL Calcium 8.0 L (8.7-10.3) mg/dL Phosphorus (2.5-4.5) mg/dL Ferritin 1273.0 H (22.0-322.0) ng/mL Total Bilirubin <0.20 L (0.30-1.20) mg/dL Total Protein 5.4 L (6.2-8.2) g/dL Albumin 2.5 L (3.8-4.9) g/dL Albumin/Globulin Ratio 0.88 L (1.60-3.17) g/dL Crossmatch 04/08/21 04/08/21 04/08/21 Range/Units 05:33 05:33 08:45 WBC 14.2 H (3.8-10.6) k/uL RBC 2.56 L (4.30-5.90) m/uL Hgb 7.1 L (13.0-17.5) gm/dL Hct 21.5 L (39.0-53.0) % Neutrophils # 12.4 H (1.3-7.7) k/uL Sodium 135 L (137-145) mmol/L BUN 98 H (9.0-27.0) mg/dL Creatinine 4.48 H (0.6-1.5) mg/dL Est GFR (CKD-EPI)AfAm (60.0-200.0) Est GFR (CKD-EPI)NonAf (60.0-200.0) Glucose 129 H (70-110) mg/dL POC Glucose (mg/dL) (75-99) mg/dL Calcium 7.5 L (8.7-10.3) mg/dL Phosphorus 5.5 H (2.5-4.5) mg/dL Ferritin (22.0-322.0) ng/mL Total Bilirubin (0.30-1.20) mg/dL Total Protein (6.2-8.2) g/dL Albumin (3.8-4.9) g/dL Albumin/Globulin Ratio (1.60-3.17) g/dL Crossmatch See Detail 04/08/21 04/08/21 Range/Units 08:45 16:07 WBC 13.9 H 12.6 H (3.8-10.6) k/uL RBC 2.56 L 2.53 L (4.30-5.90) m/uL Hgb 7.0 L 6.9 L* (13.0-17.5) gm/dL Hct 21.6 L 21.5 L (39.0-53.0) % Neutrophils # (1.3-7.7) k/uL Sodium (137-145) mmol/L BUN (9.0-27.0) mg/dL Creatinine (0.6-1.5) mg/dL Est GFR (CKD-EPI)AfAm (60.0-200.0) Est GFR (CKD-EPI)NonAf (60.0-200.0) Glucose (70-110) mg/dL POC Glucose (mg/dL) (75-99) mg/dL Calcium (8.7-10.3) mg/dL Phosphorus (2.5-4.5) mg/dL Ferritin (22.0-322.0) ng/mL Total Bilirubin (0.30-1.20) mg/dL Total Protein (6.2-8.2) g/dL Albumin (3.8-4.9) g/dL Albumin/Globulin Ratio (1.60-3.17) g/dL Crossmatch Microbiology - Last 24 Hours (Table) 04/07/21 06:55 Urine Culture - Preliminary Urine,Catheterized Group D Enterococcus Diabetes panel 04/07/21 04/08/21 Range/Units 06:29 05:33 Sodium 141 135 L (135-145) mmol/L Potassium 3.7 4.4 (3.5-5.5) mmol/L Chloride 104 98 (96-109) mmol/L Carbon Dioxide 22.1 30 (20.0-27.5) mmol/L BUN 54.9 H 98 H (9.0-27.0) mg/dL Creatinine 2.8 H 4.48 H (0.6-1.5) mg/dL Glucose 121 H 129 H (70-110) mg/dL Calcium 8.0 L 7.5 L (8.7-10.3) mg/dL AST 28 (14-35) U/L ALT 31 (10-49) U/L Alkaline Phosphatase 47 (41-126) U/L Total Protein 5.4 L (6.2-8.2) g/dL Albumin 2.5 L (3.8-4.9) g/dL Calcium panel 04/07/21 04/08/21 Range/Units 06:29 05:33 Calcium 8.0 L 7.5 L (8.7-10.3) mg/dL Phosphorus 2.8 5.5 H (2.4-5.1) mg/dL Albumin 2.5 L (3.8-4.9) g/dL Pituitary panel 04/07/21 04/08/21 Range/Units 06:29 05:33 Sodium 141 135 L (135-145) mmol/L Potassium 3.7 4.4 (3.5-5.5) mmol/L Chloride 104 98 (96-109) mmol/L Carbon Dioxide 22.1 30 (20.0-27.5) mmol/L BUN 54.9 H 98 H (9.0-27.0) mg/dL Creatinine 2.8 H 4.48 H (0.6-1.5) mg/dL Glucose 121 H 129 H (70-110) mg/dL Calcium 8.0 L 7.5 L (8.7-10.3) mg/dL Adrenal panel 04/07/21 04/08/21 Range/Units 06:29 05:33 Sodium 141 135 L (135-145) mmol/L Potassium 3.7 4.4 (3.5-5.5) mmol/L Chloride 104 98 (96-109) mmol/L Carbon Dioxide 22.1 30 (20.0-27.5) mmol/L BUN 54.9 H 98 H (9.0-27.0) mg/dL Creatinine 2.8 H 4.48 H (0.6-1.5) mg/dL Glucose 121 H 129 H (70-110) mg/dL Calcium 8.0 L 7.5 L (8.7-10.3) mg/dL Total Bilirubin <0.20 L (0.30-1.20) mg/dL AST 28 (14-35) U/L ALT 31 (10-49) U/L Alkaline Phosphatase 47 (41-126) U/L Total Protein 5.4 L (6.2-8.2) g/dL Albumin 2.5 L (3.8-4.9) g/dL - Imaging CT scan - abdomen: report reviewed, image reviewed Assessment and Plan (1) Gross hematuria Current Visit: Yes Status: Acute Code(s): R31.0 - GROSS HEMATURIA SNOMED Code(s): 491398923 (2) UTI (urinary tract infection) Current Visit: No Status: Acute Code(s): N39.0 - URINARY TRACT INFECTION, SITE NOT SPECIFIED SNOMED Code(s): 56010281 (3) Hydronephrosis Current Visit: Yes Status: Acute Code(s): N13.30 - UNSPECIFIED HYDRONEPHROSIS SNOMED Code(s): 96328240 Plan: Urine cultures show Enterococcus, and the patient is currently receiving Unasyn. I have advised the patient to undergo cystoscopy, bilateral retrograde pyelograms, bilateral ureteral stent insertion. However, I am concerned that his hydronephrosis may be the result of bladder cancer, and I have made him awar e of the fact that he may require bladder tumor resection and/or evacuation of bladder clots. The rationale for the procedure has been reviewed in detail with the patient and his family, and I have also reviewed potential risks, which include anesthesia, bleeding, infection, bladder perforation, and ureteral injury. The patient and family wish to proceed, and I intend to perform this on 04/09/2021. Time with Patient: Greater than 30
[2021-04-08 20:29] LABS: HCT 24.2 % (39.0-53.0); HGB 7.8 gm/dL (13.0-17.5); MCH 27.3 pg (25.0-35.0); MCHC 32.2 g/dL (31.0-37.0); MCV 84.8 fL (80.0-100.0); Mean Platelet Volume 7.4; Platelet Count 248 k/uL (150-450); RBC 2.85 m/uL (4.30-5.90); RDW 14.7 % (11.5-15.5); WBC 11.3 k/uL (3.8-10.6)
[2021-04-08] MEDS: ATORVASTATIN 10 MG TAB PO SCH (20:29)
[2021-04-09 06:29] LABS: Basophils % (A) 0 %; Eosinophils % (A) 0 %; HGB 7.8 gm/dL (13.0-17.5); Lymphocytes # (A) 0.9 k/uL (1.0-4.8); Lymphocytes % (A) 8 %; MCH 28.1 pg (25.0-35.0); MCHC 32.5 g/dL (31.0-37.0); MCV 86.4 fL (80.0-100.0); Mean Platelet Volume 7.9; Monocytes # (A) 0.3 k/uL (0-1.0); Monocytes % (A) 3 %; Neutrophils # (A) 10.1 k/uL (1.3-7.7); Neutrophils % (A) 89 %; Platelet Count 228 k/uL (150-450); RBC 2.78 m/uL (4.30-5.90); RDW 14.1 % (11.5-15.5); WBC 11.4 k/uL (3.8-10.6)
[2021-04-09 06:47] LABS: Albumin 2.3 g/dL (3.5-5.0); Calcium 7.5 mg/dL (8.4-10.2); Magnesium 2.4 mg/dL (1.6-2.3); Phosphorus 7.4 mg/dL (2.5-4.5); Potassium 3.6 mmol/L (3.5-5.1); Total Bilirubin 0.4 mg/dL (0.2-1.3); Total Protein 5.3 g/dL (6.3-8.2)
--- NOTE | 2021-04-09 06:52 | P.PN ---
Subjective Progress Note Date: 04/09/21 89-year-old male with history of hypertension, chronic hypoxemic respiratory failure, hyperlipidemia, COPD, and atrial fibrillation, CKD and the patient's creatinine was 2.39. He comes into the emergency room complaining of profound weakness, and poor appetite, not eating or drinking anything by mouth. The patient's currently on 2 L 20/10. He had a brain CT in the ER, that was negative. His chest x-ray was also essentially negative. Laboratory data includes a white count 16.3, hemoglobin 8.6, hematocrit 28.9, and a platelet count 433,000. D-dimer was 1.84. Sodium 134, potassium 6.6, chlorides 104, CO2 12, anion gap 18, BUN 197 with a creatinine of 9.41. The troponin was 0.061 0.061 and 0.060. LDH 346. C-reactive protein was 7.3. TSH was normal. The patient's IV was increased to 150 mL an hour, sodium bicarbonate drip to be run at 150 mL an hour. He was given IV calcium gluconate, 10 units IV regular insulin with amp of D50, 2 A of sodium bicarbonate IV push now, 10 g [facility], vascular surgery for dialysis catheter placement,and the patient was given the first treatment of hemodialysis. Patient tested positive for coronavirus infection. This may be more of an incidental finding, as the patient's respiratory status is pre-much at baseline. The patient is on vitamin C, v itamin D3, and zinc. The patient was given his first session of hemodialysis. Postdialysis, he had hypotension and the patient was started on pressors and currently is on norepinephrine infusion running at 0.05 mcg/kg per minute. Morning labs showed improvement. His potassium level is down to 4.4. His serum bicarb is up to 30 antibiotics at night in terms of IV fluids he was on bicarb infusion and currently is on still on bicarb infusion. 150 mL an hour. This can be switched to a normal saline knowing that his serum bicarb is currently at 30 as his arrival to the ICU, the patient had no urine output. A Lomeli catheter was flushed. Following that, the patient started having gross hematuria and he lost approximately 1.5 L of bloody output from his Lomeli catheter. Hemoglobin today was dropped down to 6.8 and the patient was giventransfusion. Follow-up hemoglobin today is at 7.1. Neurology has been consulted. Noted the patient received some limited amount of heparin hearing hemodialysis. To my knowledge, the Lomeli insertion was none traumatic. This Lomeli catheter was inserted in the emergency department. Ultrasound the kidneys showed severe right hydronephrosis. There was also mild to moderate left-sided hydronephrosis. There was a distended bladder despite the Lomeli catheter insertion and a bulging prostate. No evidence of any intraluminal masses. The patient is awake and alert and oriented 3. He has no specific complaints. No issues with pain. He was taken anticoagulation with Eliquis 2.5 mg twice a day and this was placed on hold. He is currently on pressors running at the rate of 0.05 mcg/kg per minute. They and to coagulation was initiated for a bout of atrial fibrillation during an earlier admission and currently his current rhythm is sinus. The patient's coagulation profile is been within normal limits. D-dimer is at 1.84. COVID 19 status is positive. On today's evaluation of 04/09/2021, the patient is being seen for a follow-up. The patient has been hospitalized for an acute kidney injury/acute kidney failure with bilateral hydronephrosis and subsequently he developed significant hematuria with a drop in hemoglobin. He is known to have multiple medical problems and comorbidities as mentioned earlier in the records. The patient was also hypokalemic and this was treated by nephrology. The patient was also requiring low-dose pressors. The workup from yesterday included a CAT scan of the abdomen and pelvis that was completed yesterday without contrast and the CAT scan showed evidence of moderate to severe bilateral hydronephrosis and there was incomplete emptying of the bladder with a Lomeli catheter in place. There wa s marked enlargement of the prostate with BPH. There was also heterogeneous lability tissue intraluminally in the LAD and this raised the possibility of an underlying neoplasm. For that reason, the patient is being taken for a cystoscopy today. The Lomeli cath is in place. The urine output is clearing slowly and it is james red. His hemoglobin dropped down to 6.9 and the patient was given a unit of packed RBC and the hemoglobin currently is up to 7.8. Meanwhile the chemistry results are still pending. Following ear 1 round of dialysis, creatinine is up to 4.4 and a repeat electrolytes and potassium from today still pending. Urine output is in order of 100 mL an hour and the patient has a Lomeli catheter in place and IV fluids are running in the form of normal saline at the rate of 100 mL an hour. The coagulation profile is essentially within normal limits. The patient is covered empirically with IV Unasyn. I did grow enterococcus group D in the urine. He is on no pressors for now. He is cold with Objective - Vital Signs Vital signs: Vital Signs Temp 98.1 F 04/09/21 00:00 Pulse 84 04/09/21 04:00 Resp 18 04/09/21 04:00 BP 106/73 04/09/21 04:00 Pulse Ox 95 04/09/21 04:00 Intake & Output 04/08/21 04/08/21 04/09/21 06:59 18:59 06:59 Intake Total 5687.836 6849.847 1100 Output Total 4000 1455 1370 Balance -2926.796 291.847 -270 Weight 58.8 kg 55.6 kg Intake: IV 900 1350 1100 Dextrose 5% in Water 1, 900 450 000 ml @ 150 mls/hr IV . Q7H40M FARZANA with Sodium Bicarb (1 Meq/ml) 150 ml Rx#:[id number] Sodium Chloride 0.9% 1, 900 1100 000 ml @ 100 mls/hr IV . Q10H FARZANA Rx#:[id number] Intake, IV Titration 173.204 76.847 Amount Norepinephrine 4 mg In 173.204 76.847 Sodium Chloride 0.9% 250 ml @ 0.05 MCG/KG/MIN 9. 937 mls/hr IV .Q24H ONE Rx#:[id number] Oral 320 Blood Product 0 Rc Pheresis As-3 Unit 0 [id number] Output: Urine 1700 1455 1370 Hemodialysis 2300 Other: Voiding Method Indwelling Catheter Indwelling Catheter Indwelling Catheter - Exam No acute distress, oriented 3. The patient's very lethargic. He is on Ra O2. HEENT examination is grossly unremarkable. Mucous membranes are dry. Neck supple. Full range of motion. No adenopathy thyromegaly or neck vein distention. Cardiovascular examination reveals regular rhythm rate. S1-S2 normal. No S3 or S4. No discernible murmur noted. Heart sounds are distant. Heart rate 79 bpm. Blood pressures only 67/56 with mean of 59. Lungs reveal scattered bilateral rhonchi. Breath sounds equal but diminished throughout. No wheezes or crackles. Abdomen soft, with diminished bowel sounds. No masses or tenderness. Extremities are intact. No cyanosis clubbing or edema. Skin is without rash or lesion. Neurologic examination is brief but nonfocal. - Labs CBC & Chem 7: 04/09/21 06:04 04/08/21 05:33 Labs: Abnormal Lab Results - Last 24 Hours (Table) 04/08/21 04/08/21 04/08/21 Range/Units 08:45 08:45 16:07 WBC 13.9 H 12.6 H (3.8-10.6) k/uL RBC 2.56 L 2.53 L (4.30-5.90) m/uL Hgb 7.0 L 6.9 L* (13.0-17.5) gm/dL Hct 21.6 L 21.5 L (39.0-53.0) % Neutrophils # (1.3-7.7) k/uL Lymphocytes # (1.0-4.8) k/uL Crossmatch See Detail 04/08/21 04/09/21 Range/Units 20:05 06:04 WBC 11.3 H 11.4 H (3.8-10.6) k/uL RBC 2.85 L 2.78 L (4.30-5.90) m/uL Hgb 7.8 L 7.8 L (13.0-17.5) gm/dL Hct 24.2 L 24.0 L (39.0-53.0) % Neutrophils # 10.1 H (1.3-7.7) k/uL Lymphocytes # 0.9 L (1.0-4.8) k/uL Crossmatch Microbiology - Last 24 Hours (Table) 04/07/21 06:55 Urine Culture - Preliminary Urine,Catheterized Group D Enterococcus Assessment and Plan Plan: 1. Acute kidney injury secondary to ATN on top of CKD and this is secondary to hypotension/severe sepsis. Creatinine 9.41 on admission. The patient got hemodialysis yesterday. Potassium level improved. Creatinine is down. The patient postdialysis became hypotensive and currently is running a lower dose norepinephrine infusion for blood pressure support. , The patient is off pressors. The patient is responding to IV fluids and the patient is on normal saline at the rate of 100 mL an hour. The hematuria is improving. The patient had a CAT scan of the abdomen and pelvis that confirmed presence of distended bladder in addition to bilateral hydronephrosis and there was heterogeneous mass within the bladder with a possibility of an underlying bladder mass. The patient is going to undergo a cystoscopy. Dialysis cath is still in place. No plans for hemodialysis today. Pending further excised from today. 2. Hyperkalemia secondary to acute kidney injury and metabolic acidosis, improved 3. Metabolic acidosis secondary to acute kidney injury, improved 4 chronic kidney disease. Patient's creatinine in February 2021 was in the range of 2.1-2.5. In March 2020, it was 1.23. 5 Acute COVID-19 infection and the patient is currently on RA 6 History of atrial fibrillation. The patient's current rhythm is sinus and the patient was taken anticoagulation with Eliquis. 7 History of hyperlipidemia. 8 History of hypertension. 9 History of severe COPD with chronic hypoxemic respiratory failure. 10 Hematuria, could be related to a traumatic Lomeli catheterization. Please refer to the CAT scan of the abdomen and pelvis and there is a possibility of an intraluminal bladder mass and the patient is going to undergo cystoscopy. Hematuria is gradually clearing. 11 blood loss anemia with a drop in hemoglobin down to 6.8 and the patient was given a unit of packed RBC and a follow-up hemoglobin from today is at 7.8 Plan The patient does need to be seen by urology. The patient is undergoing a cystoscopy today Monitor hemoglobin IV fluids to normal saline at the rate of 100 mL an hour no pressors And discontinue monitor oxygenation special with his underlying COVID 19 infection. Note that the patient is not having any COVID 19 related symptoms of the patient's oxygenation is stable for now. Awaiting renal function and electrolytes from today We'll continue to follow make further recommendations based on his progress.
[2021-04-09] MEDS: DEXAMETHASONE SOD PHOSPHATE 10 MG/ML 1 ML VIAL IVP SCH (09:00)
[2021-04-09] MEDS ORDERED: POTASSIUM CHLORIDE ER 20 MEQ TAB.ER PO STA (09:19)
--- NOTE | 2021-04-09 09:20 | P.PN ---
Subjective Patient is seen in follow-up for acute kidney injury. Patient received 1 treatment of hemodialysis on 04/07/2021. Nonoliguric. Awake and alert. Denies chest pain or shortness of breath. Scheduled for cystoscopy with ureteral stent insertion today. Vital signs are stable. HEENT: Head exam is unremarkable. LUNGS: Breath sounds decreased. HEART: Rate and Rhythm are regular. ABDOMEN: Soft, no distention. EXTREMITITES: No edema. Objective - Vital Signs Vital signs: Vital Signs Temp 98.1 F 04/09/21 00:00 Pulse 79 04/09/21 07:00 Resp 22 04/09/21 07:00 BP 109/55 04/09/21 07:00 Pulse Ox 92 L 04/09/21 07:00 Intake & Output 04/08/21 04/09/21 04/09/21 18:59 06:59 18:59 Intake Total 4986.971 2998 100 Output Total 1455 1595 150 Balance 291.847 -295 -50 Weight 55.6 kg Intake: IV 1350 1300 100 Dextrose 5% in Water 1, 450 000 ml @ 150 mls/hr IV . Q7H40M FARZANA with Sodium Bicarb (1 Meq/ml) 150 ml Rx#:[id number] Sodium Chloride 0.9% 1, 900 1300 100 000 ml @ 100 mls/hr IV . Q10H FARZANA Rx#:[id number] Intake, IV Titration 76.847 Amount Norepinephrine 4 mg In 76.847 Sodium Chloride 0.9% 250 ml @ 0.05 MCG/KG/MIN 9. 937 mls/hr IV .Q24H ONE Rx#:[id number] Oral 320 Blood Product 0 Rc Pheresis As-3 Unit 0 [id number] Output: Urine 1455 1595 150 Other: Voiding Method Indwelling Catheter Indwelling Catheter - Labs CBC & Chem 7: 04/09/21 06:04 04/09/21 06:04 Labs: Abnormal Lab Results - Last 24 Hours (Table) 04/08/21 04/08/21 04/08/21 Range/Units 08:45 16:07 20:05 WBC 12.6 H 11.3 H (3.8-10.6) k/uL RBC 2.53 L 2.85 L (4.30-5.90) m/uL Hgb 6.9 L* 7.8 L (13.0-17.5) gm/dL Hct 21.5 L 24.2 L (39.0-53.0) % Neutrophils # (1.3-7.7) k/uL Lymphocytes # (1.0-4.8) k/uL BUN (9-20) mg/dL Creatinine (0.66-1.25) mg/dL Glucose (74-99) mg/dL Calcium (8.4-10.2) mg/dL Phosphorus (2.5-4.5) mg/dL Magnesium (1.6-2.3) mg/dL Total Protein (6.3-8.2) g/dL Albumin (3.5-5.0) g/dL Crossmatch See Detail 04/09/21 04/09/21 Range/Units 06:04 06:04 WBC 11.4 H (3.8-10.6) k/uL RBC 2.78 L (4.30-5.90) m/uL Hgb 7.8 L (13.0-17.5) gm/dL Hct 24.0 L (39.0-53.0) % Neutrophils # 10.1 H (1.3-7.7) k/uL Lymphocytes # 0.9 L (1.0-4.8) k/uL BUN 81 H (9-20) mg/dL Creatinine 3.97 H (0.66-1.25) mg/dL Glucose 139 H (74-99) mg/dL Calcium 7.5 L (8.4-10.2) mg/dL Phosphorus 7.4 H (2.5-4.5) mg/dL Magnesium 2.4 H (1.6-2.3) mg/dL Total Protein 5.3 L (6.3-8.2) g/dL Albumin 2.3 L (3.5-5.0) g/dL Crossmatch Microbiology - Last 24 Hours (Table) 04/07/21 06:55 Urine Culture - Preliminary Urine,Catheterized Group D Enterococcus Assessment and Plan Plan: Assessment: 1. Acute kidney injury secondary to ATN secondary to hypotension/severe sepsis and obstructive uropathy. Creatinine 9.41 on admission - 3.97 today. Nonoliguric. Status post one treatment of hemodialysis on 04/07/2021. 2. Hyperkalemia secondary to acute kidney injury and metabolic acidosis. Resolved. Now hypokalemic. 3. Metabolic acidosis secondary to acute kidney injury. Status post bicarb drip. Resolved. 4. Rule out chronic kidney disease. Patient's creatinine in February 2021 was in the range of 2.1-2.5. In March 2020, it was 1.23. 5. Acute hypoxic respiratory failure. 6. COVID-19 infection. 7. Bilateral hydronephrosis scheduled for cystoscopy and ureteral stent insertion today. 8. UTI. Urine culture positive for group D enterococcus on antibiotics. Plan: Maintain normal saline. Continue to hold off on dialysis. Avoid nephrotoxins. Continue to monitor renal function and urine output. Replace potassium.
[2021-04-09] MEDS: SYMBICORT 160-4.5 MCG INHALER INHALATION SCH ×2 (09:42→19:48)
[2021-04-09] MEDS: ALBUTEROL HFA INHALER INHALATION PRN (09:42)
--- NOTE | 2021-04-09 12:49 | P.PN ---
Subjective Progress Note Date: 04/09/21 Pt reports no complaints at this time. Rec'd 1 session of dialysis, with resolution of hyperkalemia, and now making 100cc/hr of UOP. IVF running at 100cc/hr. Pt is now on room air. BPs stable with no further pressor requirement. Barker is in place and draining well. Plan for cystoscopy today with urology. Pt will be transferred to the floor. Objective - Vital Signs Vital signs: Vital Signs Temp 97.8 F 04/09/21 08:00 Pulse 81 04/09/21 11:00 Resp 27 H 04/09/21 11:00 BP 119/64 04/09/21 11:00 Pulse Ox 95 04/09/21 08:00 Intake & Output 04/08/21 04/09/21 04/09/21 18:59 06:59 18:59 Intake Total 0133.828 9188 500 Output Total 1455 1595 595 Balance 291.847 -295 -95 Weight 55.6 kg Intake: IV 1350 1300 500 Dextrose 5% in Water 1, 450 000 ml @ 150 mls/hr IV . Q7H40M [facility] with Sodium Bicarb (1 Meq/ml) 150 ml Rx#:[id number] Sodium Chloride 0.9% 1, 900 1300 500 000 ml @ 100 mls/hr IV . Q10H [facility] Rx#:[id number] Intake, IV Titration 76.847 Amount Norepinephrine 4 mg In 76.847 Sodium Chloride 0.9% 250 ml @ 0.05 MCG/KG/MIN 9. 937 mls/hr IV .Q24H [facility] Rx#:[id number] Oral 320 Blood Product 0 Rc Pheresis As-3 Unit 0 [id number] Output: Urine 1455 1595 595 Hemodialysis 0 Other: Voiding Method Indwelling Catheter Indwelling Catheter Indwelling Catheter - Exam Gen: awake, alert HEENT: normocephalic, atraumatic, good hearing acuity, moist mucous membranes Resp: good air exchange, breathing comfortably with no accessory muscle use CVS: good distal perfusion x 4, GI: soft, NTTP, ND : no SPT, no CVAT, barker catheter is present MSK: no pitting edema, no clubbing Neuro: non-focal, moving all extremities Psych: cooperative, euthymic mood - Labs CBC & Chem 7: 04/09/21 06:04 04/09/21 06:04 Labs: Abnormal Lab Results - Last 24 Hours (Table) 04/08/21 04/08/21 04/08/21 Range/Units 08:45 16:07 20:05 WBC 12.6 H 11.3 H (3.8-10.6) k/uL RBC 2.53 L 2.85 L (4.30-5.90) m/uL Hgb 6.9 L* 7.8 L (13.0-17.5) gm/dL Hct 21.5 L 24.2 L (39.0-53.0) % Neutrophils # (1.3-7.7) k/uL Lymphocytes # (1.0-4.8) k/uL BUN (9-20) mg/dL Creatinine (0.66-1.25) mg/dL Glucose (74-99) mg/dL Calcium (8.4-10.2) mg/dL Phosphorus (2.5-4.5) mg/dL Magnesium (1.6-2.3) mg/dL Total Protein (6.3-8.2) g/dL Albumin (3.5-5.0) g/dL Crossmatch See Detail 04/09/21 04/09/21 Range/Units 06:04 06:04 WBC 11.4 H (3.8-10.6) k/uL RBC 2.78 L (4.30-5.90) m/uL Hgb 7.8 L (13.0-17.5) gm/dL Hct 24.0 L (39.0-53.0) % Neutrophils # 10.1 H (1.3-7.7) k/uL Lymphocytes # 0.9 L (1.0-4.8) k/uL BUN 81 H (9-20) mg/dL Creatinine 3.97 H (0.66-1.25) mg/dL Glucose 139 H (74-99) mg/dL Calcium 7.5 L (8.4-10.2) mg/dL Phosphorus 7.4 H (2.5-4.5) mg/dL Magnesium 2.4 H (1.6-2.3) mg/dL Total Protein 5.3 L (6.3-8.2) g/dL Albumin 2.3 L (3.5-5.0) g/dL Crossmatch Microbiology - Last 24 Hours (Table) 04/07/21 06:55 Urine Culture - Final Urine,Catheterized Enterococcus faecalis Assessment and Plan Assessment: MINI on CKD possibly post obstructive uropathy secondary to BPH Hematuria, improving Hyperkalemia, resolved Barker catheter inserted Renal ultrasound with hydronephrosis Nephrology following Urology following with plan for cystoscopy and NUS placement on 04/09 Dialysis catheter inserted and dialysis initiated, now with good UOP and dialysis held COVID with hx of COPD O2 saturation currently stable on nasal cannula continue to monitor Patient received monoclonal antibodies on admission Start Decadron 6 mg IV daily as he's starting to become hypoxic Acute on chronic anemia secondary to blood loss Hold liquids and aspirin Transfuse 1 unit packed red blood cells, now stable hgb P. afib on eliquis and lopressor, holding eliquis due to bleeding Hypertension , hold bp meds hyperlipidemia continue statin dementia, advanced age, avoid benzos and anticholingerics, maintain active day/night cycles, frequent re-orientation PT eval fall risk full code DVT PPX SCDs
[2021-04-09] MEDS: AMPICILLIN-SULBACTAM 1.5 GM in SODIUM CHLORIDE 0.9% 50 ML IVPB SCH (13:30)
[2021-04-09] MEDS: ASCORBIC ACID 500 MG TAB PO SCH ×2 (15:19→21:14)
[2021-04-09] MEDS: CHOLECALCIFEROL 125 MCG (5000 IU) TABLET PO SCH (15:21)
[2021-04-09] MEDS ORDERED: LACTATED RINGERS 1,000 ML IV SCH (16:00)
[2021-04-09] MEDS ORDERED: PROPOFOL 10 MG/ML 20 ML VIAL IV ONE (17:41)
[2021-04-09] MEDS ORDERED: fentaNYL (PF) 50 MCG/ML 2 ML AMP ONE (17:41)
[2021-04-09] MEDS ORDERED: LIDOCAINE 1% INJ 10MG/ML (20 ML MDV) ONE (17:41)
[2021-04-09] MEDS: SODIUM CHLORIDE 0.9% 1,000 ML IV SCH (17:41)
[2021-04-09] MEDS ORDERED: PHENYLEPHRINE-0.9% NACL SYG 1,000 MCG/10 ML SYRINGE ONE (17:41)
[2021-04-09] MEDS ORDERED: SODIUM CHLORIDE 0.9% 1,000 ML IV ONE (17:41)
[2021-04-09] MEDS ORDERED: SUCCINYLCHOLINE CHLORIDE 100 MG/5 ML SYR IV ONE (17:41)
--- NOTE | 2021-04-09 18:51 | P.OP ---
Date of Procedure: 04/09/21 Preoperative Diagnosis: Hematuria, UTI, hydronephrosis Postoperative Diagnosis: Same Procedure(s) Performed: Cystoscopy, fulguration of bleeders Anesthesia: ELYSE Surgeon: Shaun Cm Estimated Blood Loss (ml): 20 IV fluids (ml): 400 Pathology: none sent Condition: stable Disposition: PACU Indications for Procedure: The patient is an 89-year-old white male who had an episode of gross hematuria in 2010. Cystoscopy showed prostatic varicosities. At that time, he was taking doxazosin 4 mg daily for BPH. He denies any prior history of urolithiasis. He was brought to the ER by family members for generalized weakness and poor appetite. He was found to be in renal failure and has been dialyzed. CT scan shows bilateral hydroureteronephrosis and possible bladder masses. He has tested positive for COVID-19 but denies increased dyspnea. Operative Findings: Significant prostatic obstruction. Friable mucosa overlying the prostatic urethra. Ureteral orifices not visualized. No bladder tumors seen. Description of Procedure: The patient was taken to the operating room and placed in the dorsolithotomy position, with legs supported in Richardson stirrups. The external genitalia was prepped and draped sterilely. The 30 lens was used to introduce the 22-[place] Islander Stortz cystoscopic sheath through the urethra and into the bladder under direct vision. The prostatic urethra showed evidence of significant lateral lobe enlargement resulting in visual occlusion. The bladder was examined in its entirety. The bladder was irrigated and several small clots were removed. No tumors or foreign bodies were seen. Due to the prostatic enlargement, the ureteral orifices could not be visualized. A 70 lens was utilized, but again the ureteral orifices could not be visualized. The bladder was heavily trabeculated with multiple cellules. Oozing was noted from the surface of the prostatic urethra, primarily on the left side, as the mucosa was friable. The Bugbee electrode was used to fulgurate this, attaining adequate hemostasis. The cystoscope was removed, and a new 18-[place] Island[place] Lomeli catheter was placed. The return was essentially clear. The patient tolerated the procedure well and was transferred back to the ICU.
[2021-04-09] MEDS: ATORVASTATIN 10 MG TAB PO SCH (21:14)
[2021-04-09] MEDS ORDERED: METOPROLOL TARTRATE 5 MG/5 ML VIAL IVP STA (22:32)
[2021-04-10] MEDS: SODIUM CHLORIDE 0.9% 1,000 ML IV SCH ×2 (01:50→11:32)
[2021-04-10] MEDS ORDERED: fentaNYL (PF) 50 MCG/ML 2 ML AMP IV PRN (07:00)
[2021-04-10] MEDS: ALBUTEROL HFA INHALER INHALATION PRN (08:17)
[2021-04-10] MEDS: SYMBICORT 160-4.5 MCG INHALER INHALATION SCH (08:17)
[2021-04-10 08:25] LABS: Basophils % (A) 0 %; Eosinophils % (A) 0 %; HCT 24.6 % (39.0-53.0); Hypochromasia Slight; Lymphocytes # (A) 0.8 k/uL (1.0-4.8); Lymphocytes % (A) 8 %; MCH 28.7 pg (25.0-35.0); MCHC 32.6 g/dL (31.0-37.0); MCV 88.1 fL (80.0-100.0); Mean Platelet Volume 7.2; Monocytes # (A) 0.3 k/uL (0-1.0); Monocytes % (A) 3 %; Neutrophils # (A) 9.8 k/uL (1.3-7.7); Neutrophils % (A) 89 %; Platelet Count 232 k/uL (150-450); RDW 14.6 % (11.5-15.5)
[2021-04-10 08:37] LABS: Calcium 7.5 mg/dL (8.4-10.2); Potassium 3.8 mmol/L (3.5-5.1)
[2021-04-10 09:02] VITALS: PULSE 78; TEMP 97.8
--- NOTE | 2021-04-10 09:15 | P.PN ---
Progress Note - Text Progress Note Date: 04/10/21 The patient has no specific complaints, but does report poor appetite. His vital signs are stable. Cystoscopy yesterday revealed an enlarged prostate with intravesical extension. No tumors were seen. At the time of admission, the patient was noted to have a distended bladder. I suspect that his hydronephrosis and renal failure are the results of urinary retention. The serum creatinine level today has decreased to 2.89. I have recommended that the Lomeli catheter remain in place, and that he be discharged home with the catheter. He will undergo urodynamic testing following discharge to assess his bladder tone.
[2021-04-10] MEDS: AMPICILLIN-SULBACTAM 1.5 GM in SODIUM CHLORIDE 0.9% 50 ML IVPB SCH (11:31)
[2021-04-10] MEDS: DEXAMETHASONE SOD PHOSPHATE 10 MG/ML 1 ML VIAL IVP SCH (11:31)
[2021-04-10] MEDS: ASCORBIC ACID 500 MG TAB PO SCH (11:32)
[2021-04-10] MEDS: CHOLECALCIFEROL 125 MCG (5000 IU) TABLET PO SCH (11:32)
[2021-04-10 11:47] VITALS: BP 104/58; RESP 15
--- NOTE | 2021-04-10 13:22 | P.DS ---
Providers Date of admission: 04/06/21 19:56 Expected date of discharge: 04/10/21 Attending physician: Amira Moran MD Consults: 04/06/21 19:56 Consult Physician Routine Consulting Provider: Reshma Wallis Consult Reason/Comments: covid Do you want consulting provider notified?: Yes Consult Physician Urgent Consulting Provider: Rafa Mclean Consult Reason/Comments: arf Do you want consulting provider notified?: Yes 04/07/21 08:39 Consult Physician Stat Consulting Provider: Eliot Winn Consult Reason/Comments: Temporary dialysis catheter placement Do you want consulting provider notified?: Yes 04/07/21 10:34 Consult Physician Routine Consulting Provider: Moses Tom Consult Reason/Comments: hydronephrosis Do you want consulting provider notified?: Yes Primary care physician: Reshma Wlalis Hospital Course: MINI on CKD possibly post obstructive uropathy secondary to BPH Hematuria, improving Hyperkalemia, resolved Acute on chronic anemia secondary to blood loss Patient was admitted for MINI on CKD with imaging demonstrating hydronephrosis despite barker placement. Patient was taken to the ICU when he required levophed to maintain BP. Nephrology consulted on the patient and he underwent one session of dialysis due to hyperkalemia, which resolved the hyperkalemia. Pt was noted to have gross hematuria and hemoglobin drop, and required 1U PRBC transfusion. Following transfusion, patient's hgb remained stable and he was able to be taken off of pressors. All of his BP meds were held due to these issues. Pt underwent cystoscopy for gross hematuria and was noted to have oozing from the prostatic urethra which was fulgurated. Pt will be discharged to [facility] for rehab with all BP medications held. Complicated UTI Pt grew enterococcus faecalis, sensitive to augmentin. Discharged with 6 additional days of oral abx for total 10 days. COVID with hx of COPD Oxygen remained stable while in house. He was treated with multivitamins, dexamethasone. He did receive the monoclonal antibody in the ER prior to admission. Discharged with 6 more days of dexamethasone for total 10 days. P. afib discontinued eliquis and metoprolol, pending follow up with PCP Hypertension , holding bp meds til follow up with PCP hyperlipidemia continued statin dementia, advanced age I spent 45 minutes coordinating this complex discharge. Assessment: Gen: awake, alert HEENT: normocephalic, atraumatic, good hearing acuity, moist mucous membranes Resp: good air exchange, breathing comfortably with no accessory muscle use CVS: good distal perfusion x 4, GI: soft, NTTP, ND : no SPT, no CVAT, barker catheter is present MSK: no pitting edema, no clubbing Neuro: non-focal, moving all extremities Psych: cooperative, euthymic mood Patient Condition at Discharge: Good Plan - Discharge Summary Discharge Rx Participant: No New Discharge Prescriptions: New Ascorbic Acid [Vitamin C] 500 mg PO BID #60 tab Cholecalciferol [Vitamin D3 (125 Mcg = 5000 Iu)] 125 mcg PO DAILY #30 tablet dexAMETHasone ORAL [Hexadrol] 6 mg PO DAILY #18 tablet Amoxicillin/Potassium Clav [Augmentin 875-125 Tablet] 1 tab PO BID 6 Days #12 tab Continue Simvastatin [Zocor] 20 mg PO HS Albuterol Inhaler [Ventolin Hfa Inhaler] 2 puff INHALATION RT-QID PRN PRN Reason: Shortness Of Breath Budesonide-Formot 160-4.5 Mcg [Symbicort 160-4.5 Mcg Inhaler] 2 puff INHALATION RT-BID Multivitamins, Thera [Multivitamin (formulary)] 1 tab PO DAILY Apixaban [Eliquis] 2.5 mg PO BID #60 tab Discontinued Aspirin EC [Ecotrin Low Dose] 81 mg PO DAILY Doxazosin [Cardura] 4 mg PO DAILY amLODIPine [Norvasc] 5 mg PO DAILY #30 tab Metoprolol Tartrate [Lopressor] 50 mg PO BID #60 tab Discharge Medication List Albuterol Inhaler [Ventolin Hfa Inhaler] 2 puff INHALATION RT-QID PRN 04/28/20 [History] Simvastatin [Zocor] 20 mg PO HS 04/28/20 [History] Budesonide-Formot 160-4.5 Mcg [Symbicort 160-4.5 Mcg Inhaler] 2 puff INHALATION RT-BID 09/20/20 [History] Multivitamins, Thera [Multivitamin (formulary)] 1 tab PO DAILY 02/27/21 [History] Apixaban [Eliquis] 2.5 mg PO BID #60 tab 03/01/21 [Rx] Amoxicillin/Potassium Clav [Augmentin 875-125 Tablet] 1 tab PO BID 6 Days #12 tab 04/10/21 [Rx] Ascorbic Acid [Vitamin C] 500 mg PO BID #60 tab 04/10/21 [Rx] Cholecalciferol [Vitamin D3 (125 Mcg = 5000 Iu)] 125 mcg PO DAILY #30 tablet 04/10/21 [Rx] dexAMETHasone ORAL [Hexadrol] 6 mg PO DAILY #18 tablet 04/10/21 [Rx] Follow up Appointment(s)/Referral(s): Reshma Wallis MD [Primary Care Provider] - 1-2 days Estelle Tejeda MD [STAFF PHYSICIAN] - 1 Week Patient Instructions/Handouts: Gastritis (ED) Discharge Disposition: TRANSFER TO SNF/ECF
--- NOTE | 2021-04-10 14:47 | P.PN ---
Subjective Progress Note Date: 04/10/21 89-year-old male with history of hypertension, chronic hypoxemic respiratory failure, hyperlipidemia, COPD, and atrial fibrillation, CKD and the patient's creatinine was 2.39. He comes into the emergency room complaining of profound weakness, and poor appetite, not eating or drinking anything by mouth. The patient's currently on 2 L 20/10. He had a brain CT in the ER, that was negative. His chest x-ray was also essentially negative. Laboratory data includes a white count 16.3, hemoglobin 8.6, hematocrit 28.9, and a platelet count 433,000. D-dimer was 1.84. Sodium 134, potassium 6.6, chlorides 104, CO2 12, anion gap 18, BUN 197 with a creatinine of 9.41. The troponin was 0.061 0.061 and 0.060. LDH 346. C-reactive protein was 7.3. TSH was normal. The patient's IV was increased to 150 mL an hour, sodium bicarbonate drip to be run at 150 mL an hour. He was given IV calcium gluconate, 10 units IV regular insulin with amp of D50, 2 A of sodium bicarbonate IV push now, 10 g [facility], vascular surgery for dialysis catheter placement,and the patient was given the first treatment of hemodialysis. Patient tested positive for coronavirus infection. This may be more of an incidental finding, as the patient's respiratory status is pre-much at baseline. The patient is on vitamin C, v itamin D3, and zinc. The patient was given his first session of hemodialysis. Postdialysis, he had hypotension and the patient was started on pressors and currently is on norepinephrine infusion running at 0.05 mcg/kg per minute. Morning labs showed improvement. His potassium level is down to 4.4. His serum bicarb is up to 30 antibiotics at night in terms of IV fluids he was on bicarb infusion and currently is on still on bicarb infusion. 150 mL an hour. This can be switched to a normal saline knowing that his serum bicarb is currently at 30 as his arrival to the ICU, the patient had no urine output. A Lomeli catheter was flushed. Following that, the patient started having gross hematuria and he lost approximately 1.5 L of bloody output from his Lomeli catheter. Hemoglobin today was dropped down to 6.8 and the patient was giventransfusion. Follow-up hemoglobin today is at 7.1. Neurology has been consulted. Noted the patient received some limited amount of heparin hearing hemodialysis. To my knowledge, the Lomeli insertion was none traumatic. This Lomeli catheter was inserted in the emergency department. Ultrasound the kidneys showed severe right hydronephrosis. There was also mild to moderate left-sided hydronephrosis. There was a distended bladder despite the Lomeli catheter insertion and a bulging prostate. No evidence of any intraluminal masses. The patient is awake and alert and oriented 3. He has no specific complaints. No issues with pain. He was taken anticoagulation with Eliquis 2.5 mg twice a day and this was placed on hold. He is currently on pressors running at the rate of 0.05 mcg/kg per minute. They and to coagulation was initiated for a bout of atrial fibrillation during an earlier admission and currently his current rhythm is sinus. The patient's coagulation profile is been within normal limits. D-dimer is at 1.84. COVID 19 status is positive. On today's evaluation of 04/09/2021, the patient is being seen for a follow-up. The patient has been hospitalized for an acute kidney injury/acute kidney failure with bilateral hydronephrosis and subsequently he developed significant hematuria with a drop in hemoglobin. He is known to have multiple medical problems and comorbidities as mentioned earlier in the records. The patient was also hypokalemic and this was treated by nephrology. The patient was also requiring low-dose pressors. The workup from yesterday included a CAT scan of the abdomen and pelvis that was completed yesterday without contrast and the CAT scan showed evidence of moderate to severe bilateral hydronephrosis and there was incomplete emptying of the bladder with a Lomeli catheter in place. There wa s marked enlargement of the prostate with BPH. There was also heterogeneous lability tissue intraluminally in the LAD and this raised the possibility of an underlying neoplasm. For that reason, the patient is being taken for a cystoscopy today. The Lomeli cath is in place. The urine output is clearing slowly and it is james red. His hemoglobin dropped down to 6.9 and the patient was given a unit of packed RBC and the hemoglobin currently is up to 7.8. Meanwhile the chemistry results are still pending. Following ear 1 round of dialysis, creatinine is up to 4.4 and a repeat electrolytes and potassium from today still pending. Urine output is in order of 100 mL an hour and the patient has a Lomeli catheter in place and IV fluids are running in the form of normal saline at the rate of 100 mL an hour. The coagulation profile is essentially within normal limits. The patient is covered empirically with IV Unasyn. I did grow enterococcus group D in the urine. He is on no pressors for now. On today's evaluation of 04/10/2021, the patient is doing well. No specific complaints. Is going to go to a fpc today. He is out of the intensive care unit. He underwent cystoscopy and the patient was found to have enlarged prostate with intravesicular extension and there was no tumor seen. The bladder was distended. The orifice for the ureters were not identified. Lomeli cath will be kept in place and the creatinine is improving and currently is down to 2.8. No active hematuria for now. The patient is improving and the patient will be discharged to [facility] today. No evidence of any bladder tumors and urologist will be on the case. Objective - Vital Signs Vital signs: Vital Signs Temp 97.8 F 04/10/21 11:46 Pulse 78 04/10/21 11:46 Resp 15 04/10/21 11:46 BP 104/58 04/10/21 11:46 Pulse Ox 96 04/10/21 11:46 Intake & Output 04/09/21 04/10/21 04/10/21 18:59 06:59 18:59 Intake Total 1582 240 Output Total 1340 1625 Balance 242 -1625 240 Intake: IV 1300 Sodium Chloride 0.9% 1, 900 000 ml @ 100 mls/hr IV . Q10H [facility] Rx#:[id number] Oral 240 Blood Product 282 Rc Pheresis As-3 Unit 282 [id number] Output: Urine 1320 1625 Hemodialysis 0 Estimated Blood Loss 20 Other: Voiding Method Indwelling Catheter Indwelling Catheter Indwelling Catheter - Exam No acute distress, oriented 3. The patient's very lethargic. He is on Ra O2. HEENT examination is grossly unremarkable. Mucous membranes are dry. Neck supple. Full range of motion. No adenopathy thyromegaly or neck vein distention. Cardiovascular examination reveals regular rhythm rate. S1-S2 normal. No S3 or S4. No discernible murmur noted. Heart sounds are distant. Heart rate 79 bpm. Blood pressures only 67/56 with mean of 59. Lungs reveal scattered bilateral rhonchi. Breath sounds equal but diminished throughout. No wheezes or crackles. Abdomen soft, with diminished bowel sounds. No masses or tenderness. Extremities are intact. No cyanosis clubbing or edema. Skin is without rash or lesion. Neurologic examination is brief but nonfocal. - Labs CBC & Chem 7: 04/10/21 07:32 04/10/21 07:32 Labs: Abnormal Lab Results - Last 24 Hours (Table) 04/08/21 04/10/21 04/10/21 Range/Units 08:45 07:32 07:32 WBC 11.0 H (3.8-10.6) k/uL RBC 2.80 L (4.30-5.90) m/uL Hgb 8.0 L (13.0-17.5) gm/dL Hct 24.6 L (39.0-53.0) % Neutrophils # 9.8 H (1.3-7.7) k/uL Lymphocytes # 0.8 L (1.0-4.8) k/uL BUN 65 H (9-20) mg/dL Creatinine 2.89 H (0.66-1.25) mg/dL Glucose 113 H (74-99) mg/dL Calcium 7.5 L (8.4-10.2) mg/dL Crossmatch See Detail Microbiology - Last 24 Hours (Table) 04/08/21 16:10 Blood Culture - Preliminary Blood No Growth after 24 hours 04/08/21 16:00 Blood Culture - Preliminary Blood No Growth after 24 hours 04/07/21 06:55 Urine Culture - Final Urine,Catheterized Enterococcus faecalis Assessment and Plan Plan: 1. Acute kidney injury secondary to ATN on top of CKD and this is secondary to hypotension/severe sepsis. creatinine is improving and the patient has been found to have prostatic enlargement with bilateral hydronephrosis and hydroureter. The Lomeli catheter will be kept in place and the creatinine is down to 2.8. He does have some limited hematuria. Cystoscopy was completed. 2. Hyperkalemia secondary to acute kidney injury and metabolic acidosis, improved 3. Metabolic acidosis secondary to acute kidney injury, improved 4 chronic kidney disease. Patient's creatinine in February 2021 was in the range of 2.1-2.5. In March 2020, it was 1.23. 5 Acute COVID-19 infection and the patient is currently on RA 6 History of atrial fibrillation. The patient's current rhythm is sinus and the patient was taken anticoagulation with Eliquis. 7 History of hyperlipidemia. 8 History of hypertension. 9 History of severe COPD with chronic hypoxemic respiratory failure. 10 Hematuria, could be related to a traumatic Lomeli catheterization. Please refer to the CAT scan of the abdomen and pelvis and there is a possibility of an intraluminal bladder mass and the patient is going to undergo cystoscopy. Hematuria is gradually clearing. 11 blood loss anemia , hemoglobin is stable for now Plan no active pulmonary or critical care issues on this patient. The patient is currently on room air oxygen. Hemodynamically stable. No evidence of active bleed. Lomeli catheter will be kept in place and the patient is going to be transferred to monitor with. Pulmonary and critical care services will sign off the case.
--- NOTE | 2021-04-10 16:27 | PN ---
PROGRESS NOTE Patient is seen for followup for acute kidney injury. The patient's renal function has been improving. He has not had any further dialysis. Creatinine has decreased to 2.89. Initial creatinine 9.4 on admission. The patient has had good urine output with 24 hour output documented at 2.9 L. EXAMINATION: Today patient is comfortable. Blood pressure this morning 104/58, heart rate 78 per minute, he is afebrile. Examination of the heart S1, S2. Examination of the lungs, bilateral breath sounds are heard. Abdomen is soft, nontender. Examination of lower extremities shows no significant edema. LAB: Show sodium 137, potassium 3.8, chloride 104, BUN 65, creatinine 2.89, hemoglobin 8.0. ASSESSMENT: 1. Acute kidney injury, obstructive uropathy with a component of acute tubular necrosis, currently improving. No need for further dialysis. Continue with the Lomeli catheter. 2. Urine retention with enlarged prostate, status post cystoscopy, being followed by Urology. Patient will need followup as outpatient. 3. Urinary tract infection with urine culture growing group D Enterococcus. 4. Hypotension associated with underlying infection as well as anemia. 5. Anemia due to blood loss from significant hematuria. 6. Metabolic acidosis associated with advanced renal failure, currently improved. PLAN: Continue to hold off on dialysis. Avoid hypotension. Follow up with Urology as outpatient. MMODL / IJN: [id number] /
--- NOTE | 2021-04-11 10:53 | CDI ---
Documentation Clarification Form Date: 04/11/2021 09:47:00 AM From: Megan Ellis RN, CCDS Admit Date: 04/06/2021 07:56:00 PM Patient Name: Chris Krishnan Visit Number: [id number] Discharge Date: 04/10/2021 02:45:00 PM ATTENTION: The Clinical Documentation Specialists (CDI) and [facility] Coding Staff appreciate your assistance in clarifying documentation. Please respond to the clarification below the line at the bottom and electronically sign. The CDI & [facility] Coding staff will review the response and follow-up if needed. Please note: Queries are made part of the Legal Health Record. If you have any questions, please contact the author of this message via ITS. Dr. Hallie Lambert The patient presented with the following clinical indicators. Additional clarification regarding the etiology/cause of the clinical indicators is requested. 04/07 Nephrology consult and subsequent progress notes: acute kidney injury secondary to ATN secondary to hypotension/severe sepsis 04/08 Pulmonary progress notes: Acute kidney injury secondary to ATN on top of CKD and this is secondary to hypotension/severe sepsis. History/Risk Factors: Covid-19 infection, (04/06/21), BPH, Hypertension COPD, Atrial Fibrillation, Chronic hypoxic respiratory failure Clinical Indicators: 89-year-old male present to ED with generalized weakness, decreased appetite. 04/06 vital signs: 115/62 78 18 97.9 99 % RA 04/07@06:02 86/72 78 18, 67/56 with mean of 59 per Pulmonary progress note on 04/07/21. 04/06 WBC: 11/.8, BUN 197, CR 9.41, K+ 6.2 04/07 WBC 16.3, HGB 8.6, HCT 28.9 04/07 UA: Large blood, Large Leukocyte Esterase 04/07 UA Culture: Enterococcus faecalis 04/08 Blood culture No growth after 48 hours 04/06 Lactic acid: 1.0; COVID-Detected 04/06 CXR: right pleural based scarring, unchanged. No acute process 04/07 Renal US: severe right-sided hydronephrosis. Mild to moderate left-sided hydronephrosis distended bladder despite Lomeli catheter with bulging prostate or intraluminal mass. Treatment: ICU Monitoring Levophed Drip per orders (04/07-) Sodium bicarbonate drip @ 150 hour. 1 gm IV calcium gluconate, 10 units IV regular insulin with amp of D50, 2 A of sodium bicarbonate IV Push (stat Dialysis catheter placement Monitor hemoglobin daily, Strict I/O Unasyn 1.5 GM IVPB Q 24 HRS (04/08-04/10) In your professional opinion, please clarify if these findings signify one of the following conditions: [x] Sepsis POA, treated and resolved [ ] Sepsis, Not POA [ ] Sepsis ruled out [ ] Severe Sepsis with organ failure [ ] Septic Shock [ ] SIRS, without underlying infectious process [ ] Other, please specify [ ] Unable to determine SIRS Criteria: 2 or more of the following may indicate SIRS -Temperature < 96.8F (36C) or > 101.0F (38.3C) -Heart Rate > 90 bpm -Respiratory Rate > 20 breaths/min or PaCO2 < 32 mmHg -White Blood Cell Count > 12,000 or < 4,000 cells/mm3 or > 10% bands (Template Last Reviewed: April 2020) MTDD
== END 2021-04-10 14:45 | DRG 853 ==
LOC: EC 18:30 → 4SSUR 19:56 → 3SCARD 04-07 00:43 → 2SICU 04-07 14:05 → 3SCARD 04-09 17:03
PROVIDERS: ADMIT Internal Medicine; ATTEND Internal Medicine
PROC: 06HM33Z Insertion of Infusion Device into Right Femoral Vein, Percutaneous Approach (ICD-10-PCS; 2021-04-07)
PROC: 30233N1 Transfusion of Nonautologous Red Blood Cells into Peripheral Vein, Percutaneous Approach (ICD-10-PCS; 2021-04-08)
PROC: 0T5B8ZZ Destruction of Bladder, Via Natural or Artificial Opening Endoscopic (ICD-10-PCS; principal; 2021-04-09 10:05)
DX: A41.89 Other specified sepsis (principal); N17.0 Acute kidney failure with tubular necrosis; J96.21 Acute and chronic respiratory failure with hypoxia; U07.1 COVID-19; D62 Acute posthemorrhagic anemia; E87.2 Acidosis; N13.6 Pyonephrosis; R65.20 Severe sepsis without septic shock; R53.1 Weakness; I12.9 Hypertensive chronic kidney disease with stage 1 through stage 4 chronic kidney disease, or unspecified chronic kidney disease; J44.9 Chronic obstructive pulmonary disease, unspecified; N40.0 Benign prostatic hyperplasia without lower urinary tract symptoms; B95.2 Enterococcus as the cause of diseases classified elsewhere; N18.9 Chronic kidney disease, unspecified; F03.90 Unspecified dementia, unspecified severity, without behavioral disturbance, psychotic disturbance, mood disturbance, and anxiety; Z20.822 Contact with and (suspected) exposure to COVID-19; E78.5 Hyperlipidemia, unspecified; E87.5 Hyperkalemia; E87.6 Hypokalemia; I48.91 Unspecified atrial fibrillation; R31.0 Gross hematuria; Z79.01 Long term (current) use of anticoagulants; Z79.51 Long term (current) use of inhaled steroids; Z79.82 Long term (current) use of aspirin; Z79.899 Other long term (current) drug therapy; Z82.3 Family history of stroke; Z82.49 Family history of ischemic heart disease and other diseases of the circulatory system; Z87.891 Personal history of nicotine dependence; Z91.81 History of falling
CPT/HCPCS: 36415; 51702; 70450; 71046; 74176; 76770; 80048; 80053; 81001; 82728; 83605; 83615; 83735; 84100; 84132; 84145; 84443; 84484; 85025; 85027; 85379; 85610; 85730; 86140; 86706; 86850; 86900; 86901; 86920; 87040; 87077; 87086; 87186; 87340; 87635; 90935; 93005; 94640; 99285